=== PATIENT | male | born 1970 | race Caucasian/White ===

== ENCOUNTER 2020-11-30 23:46 | Inpatient (IN) ==
[2020-12-01] MEDS ORDERED: SODIUM CHLORIDE 0.9% 1000ML 1,000 ML IV SCH ×2 (00:15→05:32)
[2020-12-01] MEDS ORDERED: SODIUM CHLORIDE 0.9% 1000ML 1,000 ML IV ONE (00:31)
[2020-12-01 00:46] LABS: Basophils # (auto) 0.04 K/uL (0-0.2); Basophils % (auto) 0.4 %; Eosinophils # (auto) 0.11 K/uL (0-0.5); Hematocrit (blood only) 39.5 % (42-52); Hemoglobin 13.3 g/dL (14.0-18.0); Immature Granulocytes # (auto) 0.02 K/uL (0.00-0.02); Immature Granulocytes % (auto) 0.2 %; Lymphocytes # (auto) 3.16 K/uL (1.2-3.4); Lymphocytes % (auto) 28.9 %; Mean Corpuscular Hemoglobin 28.7 pg (25-34); Mean Corpuscular Hgb Conc 33.7 g/dL (32-36); Mean Corpuscular Volume 85.1 fL (80-100); Mean Platelet Volume 10.2 fL (7.4-10.4); Monocytes # (auto) 0.55 K/uL (0.11-0.59); Neutrophils # (auto) 7.04 K/uL (1.4-6.5); Neutrophils % (auto) 64.5 %; Platelet Count 274 K/uL (130-400); RDW Coefficient of Variation 13.7 % (11.5-14.5); RDW Standard Deviation 42.6 fL (36.4-46.3); Red Blood Count 4.64 M/uL (4.7-6.1); White Blood Count 10.92 K/uL (4.8-10.8)
[2020-12-01 01:03] LABS: Alanine Aminotransferase 25 U/L (12-78); Albumin Level 3.4 gm/dl (3.4-5.0); Aspartate Aminotransferase 21 U/L (15-37); BUN Creatinine Ratio 16.7 (10-20); Blood Urea Nitrogen 21 mg/dl (7-18); Calcium 8.4 mg/dl (8.5-10.1); Carbon Dioxide 25 mmol/L (21-32); Chloride 103 mmol/L (98-107); D Dimer 4110 ug/L FEU (0-500); Est GFR (African American) 76.4 ml/min; Est GFR (Non-African American) 65.9 ml/min; Glucose 111 mg/dl (70-99); Magnesium 2.1 mg/dl (1.8-2.4); Potassium 3.5 mmol/L (3.5-5.1); Sodium 135 mmol/L (136-145)
[2020-12-01 01:13] LABS: Albumin Globulin Ratio 0.9 (0.9-2); Alkaline Phosphatase 61 U/L (45-117); Bilirubin,Total 0.3 mg/dl (0.2-1); Globulin 3.7 gm/dl (2.5-4.0); Total Protein 7.1 gm/dl (6.4-8.2); Troponin I 0.032 ng/ml (0-0.045)
[2020-12-01 01:43] LABS: INR 1.1 (0.9-1.1); Partial Thromboplastin Ratio 0.8; Partial Thromboplastin Time 22.1 Seconds (21.0-31.0); Prothrombin Time 10.8 Seconds (9.0-12.0)
[2020-12-01] MEDS ORDERED: OPTIRAY 320 125ml IV ONE (01:55)
[2020-12-01 03:31] LABS: Appearance Urine Clear (Clear); Bacteria Urine Automated Negative (Negative); Bilirubin Urine Negative (Negative); Blood Urine Negative (Negative); Color Urine Yellow; Glucose Urine UA Negative (Negative); Ketones Urine Negative (Negative); Leukocyte Esterase Urine Negative (Negative); Nitrite Urine Negative (Negative); Protein Urine Trace (Negative); RBC Urine Automated 0-4 /hpf (0-4); Specific Gravity Urine 1.036 (1.000-1.030); Urobilinogen Urine Negative (Negative)
[2020-12-01] MEDS ORDERED: methylPREDNISolone 125 MG/2 ML VIAL IV STA (03:38)
[2020-12-01] MEDS ORDERED: ALBUT/IPRATROP 3MG/0.5MG NEB 3 ML VIAL NEB STA (03:38)
[2020-12-01 04:09] LABS: C Reactive Protein < 0.29 mg/dl (0-0.29)
[2020-12-01] MEDS ORDERED: ACETAMINOPHEN 325 MG TAB PO PRN (05:32)
[2020-12-01] MEDS ORDERED: NITROGLYCERIN SL 0.4 MG/TAB TAB SL PRN (05:32)
[2020-12-01] MEDS ORDERED: PATIENT'S HEIGHT AND/OR WEIGHT NEEDED SCH (05:45)
[2020-12-01 05:46] LABS: Adenovirus PCR Not Detected (NotDetected); Bordetella parapertussis PCR Not Detected (NotDetected); Bordetella pertussis PCR Not Detected (NotDetected); Chlamydia pneumoniae PCR Not Detected (NotDetected); Coronavirus 229E PCR Not Detected (NotDetected); Coronavirus CoV-2 (COVID19)PCR Not Detected (NotDetected); Coronavirus HKU1 PCR Not Detected (NotDetected); Coronavirus NL63 PCR Not Detected (NotDetected); Coronavirus OC43PCR Not Detected (NotDetected); Human Metapneumovirus PCR Not Detected (NotDetected); Influenza A PCR Not Detected (NotDetected); Influenza B PCR Not Detected (NotDetected); Mycoplasma pneumoniae PCR Not Detected (NotDetected); Parainfluenza Virus 1 PCR Not Detected (NotDetected); Parainfluenza Virus 2 PCR Not Detected (NotDetected); Parainfluenza Virus 3 PCR Not Detected (NotDetected); Parainfluenza Virus 4 PCR Not Detected (NotDetected); Respiratory Syncytial VirusPCR Not Detected (NotDetected); Rhinovirus/Enterovirus PCR Not Detected (NotDetected)
--- NOTE | 2020-12-01 06:45 | History and Physical Report ---
DATE OF ADMISSION: 11/30/2020. CHIEF COMPLAINT: Syncope. HISTORY OF PRESENT ILLNESS: This is a 50-year-old male with no significant past medical history presents with syncope The patient says since last couple of days, whenever he is trying to walk, he is getting short of breath. Tonight he went for a constitution party and had a couple of drinks, was doing okay and then came home and trying to go to bed, he was not feeling good and feeling short of breath with sweating. He tried to climb the steps. [place] to the steps, felt very short of breath, somehow managed to climb up the steps and then he passed out. His saw his eyes were rolling out and he became very pale. No seizure activity, no biting of the tongue, no incontinence during the episode and the next thing he remembered was when the EMS came and there was no confusion once he woke up. He noticed some petechial rash on his face, but no rash anywhere else. The patient denies any food allergy as he just ate regular stuff. Denies any fevers, also had some mild cough, no chest pain, no headache, no blurred visions, no earache, no runny nose, no sore throat. No nausea, no abdominal pain, normal bowel and bladder movements. No blood in stools or black stools. No swelling in the legs. ALLERGIES: No known drug allergies. PAST MEDICAL HISTORY: As mentioned above. PAST SURGICAL HISTORY: Colonoscopy, hand surgery. MEDICATIONS: None. FAMILY HISTORY: Mother has hypertension, breast cancer, thyroid disorder, maternal grandfather had prostate cancer, paternal grandfather had prostate and colon cancer; maternal grandmother had breast cancer. SOCIAL HISTORY: . No smoking. Alcohol occasional. No drug use. REVIEW OF SYSTEMS: As per HPI. Rest of review of systems is negative. PHYSICAL EXAMINATION: GENERAL: The patient is of moderate build, not in acute distress. VITAL SIGNS: Temperature 36.6, pulse 107, respiratory rate 19, blood pressure 150/80, oxygen 96% on room air. HEENT: Pupils equal, round and reactive to light. Oral mucosa moist. NECK: No JVD. No neck masses seen. CARDIOVASCULAR: S1 and S2 heard. Regular rate and rhythm. No murmur, no gallop. RESPIRATORY: Normal AP diameter. No accessory muscle use. No wheezing, no crackles. ABDOMEN: Soft, bowel sounds present, nontender, no distention. CENTRAL NERVOUS SYSTEM: Cranial nerves II-XII grossly intact, nonfocal. EXTREMITIES: No edema, no erythema. SKIN: Petechial rash on the face seen. LABORATORY DATA: WBC 10.9, hemoglobin 13.3, hematocrit 39.5, platelets 274. ESR 58. PT 10.8, INR 1.1, APTT 22.1. D-dimer 4100. Sodium 135, potassium 3.5, chloride 103, bicarbonate 25, BUN 21, creatinine 1.2, serum glucose 111, calcium 8.4, magnesium 2.1, total bilirubin 0.3, AST 21, ALT 25, alkaline phosphatase 61. LDH 235. Troponin I 0.03. C-reactive protein less than 0.29. TSH 3.7. Urinalysis negative. Ethyl alcohol less than 3. COVID negative. CT of the head, no acute findings. CT of the chest, There is no pulmonary embolism. Possible pulmonary venous hypertension. Chest x-ray, no acute findings. . ASSESSMENT AND PLAN: This is a 50-year-old male, presents with syncope and shortness of breath. 1. Syncope, shortness of breath: Etiology not clear. We will monitor in tele floor. Repeat EKG, echocardiogram, repeat cardiac enzymes and consult cardiology. 2. Shortness of breath ongoing for the last couple of days: No fevers. Has mild cough, not vaccinated for COVID. Initial COVID test is negative, we will recheck it with [employer]. CTA chest, no PE to follow final report. . Also doing lower extremity Doppler, we will follow the results. Currently saturating okay. 3. Deep venous thrombosis prophylaxis: Lovenox. DISPOSITION: Closely monitor in the med tele. PT, OT prior to discharge. Social service to help with discharge planning. Job ID: [id number] [facility]
[2020-12-01 07:46] LABS: Hematocrit (blood only) 42.1 % (42-52); Hemoglobin 14.4 g/dL (14.0-18.0); Immature Granulocytes # (auto) 0.02 K/uL (0.00-0.02); Immature Granulocytes % (auto) 0.2 %; Lymphocytes # (auto) 0.55 K/uL (1.2-3.4); Lymphocytes % (auto) 4.4 %; Mean Corpuscular Hemoglobin 29.1 pg (25-34); Mean Corpuscular Hgb Conc 34.2 g/dL (32-36); Mean Corpuscular Volume 85.2 fL (80-100); Mean Platelet Volume 10.4 fL (7.4-10.4); Monocytes # (auto) 0.02 K/uL (0.11-0.59); Monocytes % (auto) 0.2 %; Neutrophils # (auto) 11.99 K/uL (1.4-6.5); Neutrophils % (auto) 95.2 %; Platelet Count 261 K/uL (130-400); RDW Coefficient of Variation 13.8 % (11.5-14.5); RDW Standard Deviation 42.7 fL (36.4-46.3); Red Blood Count 4.94 M/uL (4.7-6.1); White Blood Count 12.58 K/uL (4.8-10.8)
[2020-12-01 08:11] LABS: BUN Creatinine Ratio 18.8 (10-20); Calcium 9.1 mg/dl (8.5-10.1); Creatinine Clr Calc Pharmacy 108.9 ml/min; Est GFR (Non-African American) 75.9 ml/min; Magnesium 2.2 mg/dl (1.8-2.4); Potassium 4.3 mmol/L (3.5-5.1)
--- NOTE | 2020-12-01 08:41 | Ultrasound Report ---
BILATERAL LOWER EXTREMITY VENOUS DOPPLER CLINICAL HISTORY: Syncope. Evaluate for deep venous thrombus. COMPARISON STUDY: No previous studies for comparison. TECHNIQUE: Sonography of the deep venous system of the bilateral lower extremities was performed. Co mpression and augmentation were evaluated. FINDINGS: The bilateral common femoral, superficial femoral and popliteal veins were compressible. A ugmentation was normal. Flow was shown within the deep calf vessels. IMPRESSION: No evidence of deep venous thrombus within the bilateral lower extremities. ACT 112: Negative or not required by law. Electronically signed by: Kushal Archuleta M.D. 12/01/2020 8:39 AM
--- NOTE | 2020-12-01 08:42 | CT Scan Report ---
HEAD CT NONCONTRAST CT DOSE: 2133.67 mGy.cm HISTORY: petechiae rash face, syncope TECHNIQUE: Multiaxial CT images of the head were performed without the use of intravenous contrast. A utomated exposure control was utilized for this study. A dose lowering technique was utilized adheri ng to the principles of ALARA. Comparison: None. Findings: The paranasal sinuses and mastoid air cells are clear. The calvarium and skull base are int act. The ventricles and sulci are within normal limits. There is no mass, hematoma, midline shift, or acute infarct. Impression: No acute intracranial abnormality. ACT 112: Negative or not required by law. Electronically signed by: Greg Bob M.D. 12/01/2020 8:41 AM
--- NOTE | 2020-12-01 08:54 | XRay Report ---
XR chest 1V portable CLINICAL HISTORY: syncope COMPARISON STUDY: No previous studies for comparison. FINDINGS: Lung volumes are normal. No pneumothorax or pleural effusion is identified. Interlobular se ptal thickening is present. Mild cardiomegaly is noted. IMPRESSION: Mild cardiomegaly with interstitial pulmonary edema. ACT 112: Negative or not required by law. Electronically signed by: Kushal Archuleta M.D. 12/01/2020 8:52 AM
--- NOTE | 2020-12-01 09:10 | CT Scan Report ---
CT ANGIOGRAPHY OF THE CHEST, PULMONARY EMBOLUS PROTOCOL CLINICAL HISTORY: Cough. Evaluate for pulmonary embolus. COMPARISON STUDY: Chest radiograph December 01, 2020. TECHNIQUE: Following IV administration of 118 mL of Optiray, helical axial images of the chest were o btained utilizing the pulmonary embolus protocol. Maximal intensity projections and sagittal and cor onal reformats were viewed on an independent 3D workstation. IV contrast was administered without co mplication. Automated exposure control was utilized for the study. A dose lowering technique was ut ilized adhering to the principles of ALARA. FINDINGS: No pulmonary emboli are identified. There is no thoracic aortic dissection. Mild cardiomeg rickie is noted. There is possible left ventricular hypertrophy. There is no pericardial effusion. There are trace bilateral pleural effusions. Interlobular septal thickening is noted. There are groundglas s opacities which likely reflect alveolar edema. Bronchial wall thickening is present. There is no pn eumothorax. Visual portions of the upper abdomen are unremarkable. IMPRESSION: 1. No pulmonary emboli identified. 2. Interstitial and alveolar pulmonary edema with trace bilateral pleural effusions. Mild cardiomegal y and possible left ventricular hypertrophy. Cardiology consultation is recommended. ACT 112: Negative or not required by law. Electronically signed by: Kushal Archuleta M.D. 12/01/2020 9:08 AM
[2020-12-01 09:43] LABS: Procalcitonin < 0.05 ng/ml (0-0.5)
[2020-12-01 09:49] LABS: Lyme Ab IgG w/WB Rflx Negative (Negative); Lyme Ab IgM w/WB Rflx Negative (Negative)
[2020-12-01] MEDS: ENOXAPARIN INJ 40 MG/0.4 ML SYR SQ SCH (10:13)
[2020-12-01] MEDS ORDERED: FUROSEMIDE 40 MG in SYRINGE 0 ML IV ONE (11:49)
[2020-12-01 11:59] LABS: Amphetamines+Metham, Urine Neg (Neg); Barbiturates, Urine Neg (Neg); Benzodiazepine, Urine Neg (Neg); Cocaine, Urine Neg (Neg); MDMA (Ecstacy), Urine Neg (Neg); Methadone, Urine Neg (Neg); Opiate, Urine Neg (Neg); Phencyclidine, Urine Neg (Neg)
[2020-12-01] MEDS ORDERED: FUROSEMIDE 40 MG/4 ML VIAL IV ONE (12:15)
[2020-12-01 12:47] LABS: Troponin I 0.071 ng/ml (0-0.045)
[2020-12-01 12:47] LABS: Troponin I 0.057 ng/ml (0-0.045)
--- NOTE | 2020-12-01 14:30 | Cardiology Consultation ---
Date of Consultation December 01, 2020 Assessment & Plan (1) Hypertrophic cardiomyopathy: (2) Syncope and collapse: Based on the imaging studies, I believe the patient may have had a sudden episode due to cardiac arrhythmia from a hypertrophic cardiomyopathy. The patient needs to be worked up further. Ischemic cardiomyopathy has to be excluded and therefore I have recommended a cardiac catheterization to him. I explained the risk, benefit and intent of the procedure to him and he is willing to proceed. If the cardiac catheterization is unremarkable then he needs to be worked up further for hypertrophic cardiomyopathy including an EP evaluation for possible ICD. Consideration should also be given for genetic testing which can be done as an outpatient. I have started the patient on a beta-armin. He will also be started on aspirin. At present I believe subcu Lovenox which you have given is adequate and the patient needs no additional anticoagulation. History of Present Illness Attending Physician: Serafin Kolb MD History of Present Illness This is a healthy 50-year-old male patient with no prior history of heart disease. He was in his usual state of good health and went out to dinner with his last evening. After returning home he went up stairs to the second floor and when he reached the top of the steps he felt winded and sat down. His who was in the bathroom heard a snoring kind of noise and when she came out she saw him at the top of the stairs sitting and he laid back. She describes him as appearing cyanotic, unresponsive and making snoring kind of noises. After several minutes he regained his color and eventually regained consciousness. 911 was called and [facility] After [facility] his EKG shows evidence of left ventricular hypertrophy with strain versus ischemia. Echocardiogram suggest a hypertrophic cardiomyopathy mostly in the apical area. CT of the chest was negative for pulmonary emboli but there is a suggestion on the CT of left ventricular hypertrophy. He had negative venous Dopplers of the lower extremities. Cardiac troponins are borderline elevated. His pro natruretic peptide is 3100. There is no family history of sudden . No history of hypertrophic cardiomyopathy in his family. He is a non-smoker with no previous history of diabetes or hypercholesterolemia. 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 All other 10 point review of systems are negative. Physical Exam Physical Exam: General: no acute distress and stated age Head: normocephalic, no masses, lesions, tenderness or abnormalities Eyes: conjunctiva are pink and non-injected, sclera clear Neck: supple, no adenopathy, no bruits, normal jugular venous pulse, no hepatojugular reflux Chest: normal shape and normal respiratory effort Lungs: clear to auscultation and percussion Cardiac Exam: - regular rate & rhythm, no murmurs gallops or rubs - normal S1, normal S2 Pulses: 2(+) throughout Abdomen: abdomen soft, non-tender, no abnormal masses and no hepatosplenomegaly Musculoskeletal: no gait disturbance, no joint inflammation, no deforming arthritis Extremities: no edema and no cyanosis Neuro: grossly normal exam Results & Data ([facility]) Vital Signs (Past 12 Hours) Vital Signs Temp Pulse Pulse Resp BP BP Pulse Ox 12/01/20 12:00 99 H 22 142/83 H 94 12/01/20 10:56 99 H 22 142/83 H 94 12/01/20 08:30 37 C 102 H 18 141/77 H 95 12/01/20 06:00 36.8 C 107 H 21 136/80 97 12/01/20 04:20 107 H 19 150/80 H 96 12/01/20 04:01 106 H 20 96 12/01/20 04:00 108 H 17 129/80 99 12/01/20 03:30 104 H 26 H 122/73 92 Laboratory Results Laboratory Results - last 24 hr 12/01/20 12/01/20 12/01/20 00:35 00:35 00:36 WBC 10.92 H RBC 4.64 L Hgb 13.3 L Hct 39.5 L MCV 85.1 MCH 28.7 MCHC 33.7 RDW Std Deviation 42.6 RDW Coeff of Cathryn 13.7 Plt Count 274 MPV 10.2 Immature Gran % (Auto) 0.2 Neut % (Auto) 64.5 Lymph % (Auto) 28.9 [place] % (Auto) 5.0 Eos % (Auto) 1.0 Baso % (Auto) 0.4 Neut # (Auto) 7.04 H Lymph # (Auto) 3.16 [place] # (Auto) 0.55 Eos # (Auto) 0.11 Baso # (Auto) 0.04 Immature Gran # (Auto) 0.02 ESR PT INR APTT PTT Ratio D-Dimer Sodium Potassium Chloride Carbon Dioxide Anion Gap BUN Creatinine Est Cr Clr Drug Dosing Est GFR ( Amer) Est GFR (Non-Af Amer) BUN/Creatinine Ratio Glucose Calcium Magnesium Total Bilirubin AST ALT Alkaline Phosphatase Lactate Dehydrogenase Troponin I C-Reactive Protein NT-Pro-B Natriuret Pep Total Protein Albumin Globulin Albumin/Globulin Ratio Procalcitonin TSH Urine Color Urine Appearance Urine pH Ur Specific Dennis Urine Protein Urine Glucose (UA) Urine Ketones Urine Blood Urine Nitrite Urine Bilirubin Urine Urobilinogen Ur Leukocyte Esterase Urine WBC (Auto) Urine RBC (Auto) U Hyaline Cast (Auto) U Epithel Cells (Auto) Urine Bacteria (Auto) Urine Opiates Screen Ur Methadone, Qual Urine Barbiturates Ur Phencyclidine (PCP) U Amphetamin/Meth Scrn MDMA (Ecstasy) Screen U Benzodiazepines Scrn Ur Cocaine Metabolite U Marijuana (THC) Screen Ethyl Alcohol mg/dL Adenovirus (PCR) Anaplasma Smear A. phagocytophilum DNA Babesia Smear Babesia microti DNA PCR B. pertussis DNA (PCR) B.parapertussis DNA PCR Lyme Disease IgG Ab Lyme Disease IgM Ab C. pneumoniae DNA (PCR) Coronavirus OC43 (PCR) Coronavirus HKU1 (PCR) Coronavirus 229E (PCR) COVID-19 Eval Order Covid19 at [facility] SARS-CoV-2 (PCR) NEGATIVE Coronavirus NL63 (PCR) Human Metapneumovir PCR Influenza Type A (PCR) Influenza Type B (PCR) M. pneumoniae (PCR) Parainfluenza 1 (PCR) Parainfluenza 2 (PCR) Parainfluenza 3 (PCR) Parainfluenza 4 (PCR) RSV (PCR) Entero/Rhino (PCR) 12/01/20 12/01/20 12/01/20 00:36 00:36 00:36 WBC RBC Hgb Hct MCV MCH MCHC RDW Std Deviation RDW Coeff of Cathryn Plt Count MPV Immature Gran % (Auto) Neut % (Auto) Lymph % (Auto) [place] % (Auto) Eos % (Auto) Baso % (Auto) Neut # (Auto) Lymph # (Auto) [place] # (Auto) Eos # (Auto) Baso # (Auto) Immature Gran # (Auto) ESR 58 H PT 10.8 INR 1.1 APTT 22.1 PTT Ratio 0.8 D-Dimer 4110 H* Sodium 135 L Potassium 3.5 Chloride 103 Carbon Dioxide 25 Anion Gap 7.0 BUN 21 H Creatinine 1.27 Est Cr Clr Drug Dosing Not Reportable Est GFR ( Amer) 76.4 Est GFR (Non-Af Amer) 65.9 BUN/Creatinine Ratio 16.7 Glucose 111 H Calcium 8.4 L Magnesium 2.1 Total Bilirubin 0.3 AST 21 ALT 25 Alkaline Phosphatase 61 Lactate Dehydrogenase Troponin I 0.032 C-Reactive Protein < 0.29 NT-Pro-B Natriuret Pep Total Protein 7.1 Albumin 3.4 Globulin 3.7 Albumin/Globulin Ratio 0.9 Procalcitonin TSH 3.170 Urine Color Urine Appearance Urine pH Ur Specific Dennis Urine Protein Urine Glucose (UA) Urine Ketones Urine Blood Urine Nitrite Urine Bilirubin Urine Urobilinogen Ur Leukocyte Esterase Urine WBC (Auto) Urine RBC (Auto) U Hyaline Cast (Auto) U Epithel Cells (Auto) Urine Bacteria (Auto) Urine Opiates Screen Ur Methadone, Qual Urine Barbiturates Ur Phencyclidine (PCP) U Amphetamin/Meth Scrn MDMA (Ecstasy) Screen U Benzodiazepines Scrn Ur Cocaine Metabolite U Marijuana (THC) Screen Ethyl Alcohol mg/dL Adenovirus (PCR) Anaplasma Smear A. phagocytophilum DNA Babesia Smear Babesia microti DNA PCR B. pertussis DNA (PCR) B.parapertussis DNA PCR Lyme Disease IgG Ab Lyme Disease IgM Ab C. pneumoniae DNA (PCR) Coronavirus OC43 (PCR) Coronavirus HKU1 (PCR) Coronavirus 229E (PCR) COVID-19 Eval Order SARS-CoV-2 (PCR) Coronavirus NL63 (PCR) Human Metapneumovir PCR Influenza Type A (PCR) Influenza Type B (PCR) M. pneumoniae (PCR) Parainfluenza 1 (PCR) Parainfluenza 2 (PCR) Parainfluenza 3 (PCR) Parainfluenza 4 (PCR) RSV (PCR) Entero/Rhino (PCR) 12/01/20 12/01/20 12/01/20 00:36 00:36 00:36 WBC RBC Hgb Hct MCV MCH MCHC RDW Std Deviation RDW Coeff of Cathryn Plt Count MPV Immature Gran % (Auto) Neut % (Auto) Lymph % (Auto) [place] % (Auto) Eos % (Auto) Baso % (Auto) Neut # (Auto) Lymph # (Auto) [place] # (Auto) Eos # (Auto) Baso # (Auto) Immature Gran # (Auto) ESR PT INR APTT PTT Ratio D-Dimer Sodium Potassium Chloride Carbon Dioxide Anion Gap BUN Creatinine Est Cr Clr Drug Dosing Est GFR ( Amer) Est GFR (Non-Af Amer) BUN/Creatinine Ratio Glucose Calcium Magnesium Total Bilirubin AST ALT Alkaline Phosphatase Lactate Dehydrogenase 235 Troponin I C-Reactive Protein NT-Pro-B Natriuret Pep Total Protein Albumin Globulin Albumin/Globulin Ratio Procalcitonin TSH Urine Color Urine Appearance Urine pH Ur Specific Dennis Urine Protein Urine Glucose (UA) Urine Ketones Urine Blood Urine Nitrite Urine Bilirubin Urine Urobilinogen Ur Leukocyte Esterase Urine WBC (Auto) Urine RBC (Auto) U Hyaline Cast (Auto) U Epithel Cells (Auto) Urine Bacteria (Auto) Urine Opiates Screen Ur Methadone, Qual Urine Barbiturates Ur Phencyclidine (PCP) U Amphetamin/Meth Scrn MDMA (Ecstasy) Screen U Benzodiazepines Scrn Ur Cocaine Metabolite U Marijuana (THC) Screen Ethyl Alcohol mg/dL Adenovirus (PCR) Anaplasma Smear See Comment A. phagocytophilum DNA Babesia Smear See Comment Babesia microti DNA PCR Pending B. pertussis DNA (PCR) B.parapertussis DNA PCR Lyme Disease IgG Ab Lyme Disease IgM Ab C. pneumoniae DNA (PCR) Coronavirus OC43 (PCR) Coronavirus HKU1 (PCR) Coronavirus 229E (PCR) COVID-19 Eval Order SARS-CoV-2 (PCR) Coronavirus NL63 (PCR) Human Metapneumovir PCR Influenza Type A (PCR) Influenza Type B (PCR) M. pneumoniae (PCR) Parainfluenza 1 (PCR) Parainfluenza 2 (PCR) Parainfluenza 3 (PCR) Parainfluenza 4 (PCR) RSV (PCR) Entero/Rhino (PCR) 12/01/20 12/01/20 12/01/20 00:36 01:11 03:15 WBC RBC Hgb Hct MCV MCH MCHC RDW Std Deviation RDW Coeff of Cathryn Plt Count MPV Immature Gran % (Auto) Neut % (Auto) Lymph % (Auto) [place] % (Auto) Eos % (Auto) Baso % (Auto) Neut # (Auto) Lymph # (Auto) [place] # (Auto) Eos # (Auto) Baso # (Auto) Immature Gran # (Auto) ESR PT INR APTT PTT Ratio D-Dimer Sodium Potassium Chloride Carbon Dioxide Anion Gap BUN Creatinine Est Cr Clr Drug Dosing Est GFR ( Amer) Est GFR (Non-Af Amer) BUN/Creatinine Ratio Glucose Calcium Magnesium Total Bilirubin AST ALT Alkaline Phosphatase Lactate Dehydrogenase Troponin I C-Reactive Protein NT-Pro-B Natriuret Pep Total Protein Albumin Globulin Albumin/Globulin Ratio Procalcitonin TSH Urine Color Yellow Urine Appearance Clear Urine pH 5.0 Ur Specific Dennis 1.036 H Urine Protein Trace H Urine Glucose (UA) Negative Urine Ketones Negative Urine Blood Negative Urine Nitrite Negative Urine Bilirubin Negative Urine Urobilinogen Negative Ur Leukocyte Esterase Negative Urine WBC (Auto) 1-5 Urine RBC (Auto) 0-4 U Hyaline Cast (Auto) 1-5 U Epithel Cells (Auto) 5-10 H Urine Bacteria (Auto) Negative Urine Opiates Screen Ur Methadone, Qual Urine Barbiturates Ur Phencyclidine (PCP) U Amphetamin/Meth Scrn MDMA (Ecstasy) Screen U Benzodiazepines Scrn Ur Cocaine Metabolite U Marijuana (THC) Screen Ethyl Alcohol mg/dL < 3.0 Adenovirus (PCR) Anaplasma Smear A. phagocytophilum DNA Pending Babesia Smear Babesia microti DNA PCR B. pertussis DNA (PCR) B.parapertussis DNA PCR Lyme Disease IgG Ab Lyme Disease IgM Ab C. pneumoniae DNA (PCR) Coronavirus OC43 (PCR) Coronavirus HKU1 (PCR) Coronavirus 229E (PCR) COVID-19 Eval Order SARS-CoV-2 (PCR) Coronavirus NL63 (PCR) Human Metapneumovir PCR Influenza Type A (PCR) Influenza Type B (PCR) M. pneumoniae (PCR) Parainfluenza 1 (PCR) Parainfluenza 2 (PCR) Parainfluenza 3 (PCR) Parainfluenza 4 (PCR) RSV (PCR) Entero/Rhino (PCR) 12/01/20 12/01/20 12/01/20 04:32 04:32 07:23 WBC 12.58 H RBC 4.94 Hgb 14.4 Hct 42.1 MCV 85.2 MCH 29.1 MCHC 34.2 RDW Std Deviation 42.7 RDW Coeff of Cathryn 13.8 Plt Count 261 MPV 10.4 Immature Gran % (Auto) 0.2 Neut % (Auto) 95.2 Lymph % (Auto) 4.4 [place] % (Auto) 0.2 Eos % (Auto) 0.0 Baso % (Auto) 0.0 Neut # (Auto) 11.99 H Lymph # (Auto) 0.55 L [place] # (Auto) 0.02 L Eos # (Auto) 0.00 Baso # (Auto) 0.00 Immature Gran # (Auto) 0.02 ESR PT INR APTT PTT Ratio D-Dimer Sodium Potassium Chloride Carbon Dioxide Anion Gap BUN Creatinine Est Cr Clr Drug Dosing Est GFR ( Amer) Est GFR (Non-Af Amer) BUN/Creatinine Ratio Glucose Calcium Magnesium Total Bilirubin AST ALT Alkaline Phosphatase Lactate Dehydrogenase Troponin I C-Reactive Protein NT-Pro-B Natriuret Pep Total Protein Albumin Globulin Albumin/Globulin Ratio Procalcitonin TSH Urine Color Urine Appearance Urine pH Ur Specific Dennis Urine Protein Urine Glucose (UA) Urine Ketones Urine Blood Urine Nitrite Urine Bilirubin Urine Urobilinogen Ur Leukocyte Esterase Urine WBC (Auto) Urine RBC (Auto) U Hyaline Cast (Auto) U Epithel Cells (Auto) Urine Bacteria (Auto) Urine Opiates Screen Ur Methadone, Qual Urine Barbiturates Ur Phencyclidine (PCP) U Amphetamin/Meth Scrn MDMA (Ecstasy) Screen U Benzodiazepines Scrn Ur Cocaine Metabolite U Marijuana (THC) Screen Ethyl Alcohol mg/dL Adenovirus (PCR) Not Detected Anaplasma Smear A. phagocytophilum DNA Babesia Smear Babesia microti DNA PCR B. pertussis DNA (PCR) Not Detected B.parapertussis DNA PCR Not Detected Lyme Disease IgG Ab Lyme Disease IgM Ab C. pneumoniae DNA (PCR) Not Detected Coronavirus OC43 (PCR) Not Detected Coronavirus HKU1 (PCR) Not Detected Coronavirus 229E (PCR) Not Detected COVID-19 Eval Order RESPNP at [facility] SARS-CoV-2 (PCR) Not Detected Coronavirus NL63 (PCR) Not Detected Human Metapneumovir PCR Not Detected Influenza Type A (PCR) Not Detected Influenza Type B (PCR) Not Detected M. pneumoniae (PCR) Not Detected Parainfluenza 1 (PCR) Not Detected Parainfluenza 2 (PCR) Not Detected Parainfluenza 3 (PCR) Not Detected Parainfluenza 4 (PCR) Not Detected RSV (PCR) Not Detected Entero/Rhino (PCR) Not Detected 12/01/20 12/01/20 12/01/20 07:23 08:56 11:40 WBC RBC Hgb Hct MCV MCH MCHC RDW Std Deviation RDW Coeff of Cathryn Plt Count MPV Immature Gran % (Auto) Neut % (Auto) Lymph % (Auto) [place] % (Auto) Eos % (Auto) Baso % (Auto) Neut # (Auto) Lymph # (Auto) [place] # (Auto) Eos # (Auto) Baso # (Auto) Immature Gran # (Auto) ESR PT INR APTT PTT Ratio D-Dimer Sodium 135 L Potassium 4.3 D Chloride 107 Carbon Dioxide 21 Anion Gap 8.0 BUN 21 H Creatinine 1.13 Est Cr Clr Drug Dosing 108.9 Est GFR ( Amer) 88.0 Est GFR (Non-Af Amer) 75.9 BUN/Creatinine Ratio 18.8 Glucose 139 H Calcium 9.1 Magnesium 2.2 Total Bilirubin AST ALT Alkaline Phosphatase Lactate Dehydrogenase Troponin I 0.071 H* 0.057 H* C-Reactive Protein NT-Pro-B Natriuret Pep 3153 H Total Protein Albumin Globulin Albumin/Globulin Ratio Procalcitonin < 0.05 TSH Urine Color Urine Appearance Urine pH Ur Specific Dennis Urine Protein Urine Glucose (UA) Urine Ketones Urine Blood Urine Nitrite Urine Bilirubin Urine Urobilinogen Ur Leukocyte Esterase Urine WBC (Auto) Urine RBC (Auto) U Hyaline Cast (Auto) U Epithel Cells (Auto) Urine Bacteria (Auto) Urine Opiates Screen Ur Methadone, Qual Urine Barbiturates Ur Phencyclidine (PCP) U Amphetamin/Meth Scrn MDMA (Ecstasy) Screen U Benzodiazepines Scrn Ur Cocaine Metabolite U Marijuana (THC) Screen Ethyl Alcohol mg/dL Adenovirus (PCR) Anaplasma Smear A. phagocytophilum DNA Babesia Smear Babesia microti DNA PCR B. pertussis DNA (PCR) B.parapertussis DNA PCR Lyme Disease IgG Ab Negative Lyme Disease IgM Ab Negative C. pneumoniae DNA (PCR) Coronavirus OC43 (PCR) Coronavirus HKU1 (PCR) Coronavirus 229E (PCR) COVID-19 Eval Order SARS-CoV-2 (PCR) Coronavirus NL63 (PCR) Human Metapneumovir PCR Influenza Type A (PCR) Influenza Type B (PCR) M. pneumoniae (PCR) Parainfluenza 1 (PCR) Parainfluenza 2 (PCR) Parainfluenza 3 (PCR) Parainfluenza 4 (PCR) RSV (PCR) Entero/Rhino (PCR) 12/01/20 Unknown WBC RBC Hgb Hct MCV MCH MCHC RDW Std Deviation RDW Coeff of Cathryn Plt Count MPV Immature Gran % (Auto) Neut % (Auto) Lymph % (Auto) [place] % (Auto) Eos % (Auto) Baso % (Auto) Neut # (Auto) Lymph # (Auto) [place] # (Auto) Eos # (Auto) Baso # (Auto) Immature Gran # (Auto) ESR PT INR APTT PTT Ratio D-Dimer Sodium Potassium Chloride Carbon Dioxide Anion Gap BUN Creatinine Est Cr Clr Drug Dosing Est GFR ( Amer) Est GFR (Non-Af Amer) BUN/Creatinine Ratio Glucose Calcium Magnesium Total Bilirubin AST ALT Alkaline Phosphatase Lactate Dehydrogenase Troponin I C-Reactive Protein NT-Pro-B Natriuret Pep Total Protein Albumin Globulin Albumin/Globulin Ratio Procalcitonin TSH Urine Color Urine Appearance Urine pH Ur Specific Dennis Urine Protein Urine Glucose (UA) Urine Ketones Urine Blood Urine Nitrite Urine Bilirubin Urine Urobilinogen Ur Leukocyte Esterase Urine WBC (Auto) Urine RBC (Auto) U Hyaline Cast (Auto) U Epithel Cells (Auto) Urine Bacteria (Auto) Urine Opiates Screen Neg Ur Methadone, Qual Neg Urine Barbiturates Neg Ur Phencyclidine (PCP) Neg U Amphetamin/Meth Scrn Neg MDMA (Ecstasy) Screen Neg U Benzodiazepines Scrn Neg Ur Cocaine Metabolite Neg U Marijuana (THC) Screen Neg Ethyl Alcohol mg/dL Adenovirus (PCR) Anaplasma Smear A. phagocytophilum DNA Babesia Smear Babesia microti DNA PCR B. pertussis DNA (PCR) B.parapertussis DNA PCR Lyme Disease IgG Ab Lyme Disease IgM Ab C. pneumoniae DNA (PCR) Coronavirus OC43 (PCR) Coronavirus HKU1 (PCR) Coronavirus 229E (PCR) COVID-19 Eval Order SARS-CoV-2 (PCR) Coronavirus NL63 (PCR) Human Metapneumovir PCR Influenza Type A (PCR) Influenza Type B (PCR) M. pneumoniae (PCR) Parainfluenza 1 (PCR) Parainfluenza 2 (PCR) Parainfluenza 3 (PCR) Parainfluenza 4 (PCR) RSV (PCR) Entero/Rhino (PCR) Medications Administered Current Inpatient Medications Acetaminophen (Acetaminophen 325 Mg Tab) 650 mg PO Q4H PRN PRN Reason: Pain or Fever Stop: 12/31/20 05:31 Aspirin (Aspirin 81 Mg Chew) 81 mg PO DAILY MADAN Stop: 12/31/20 14:29 Enoxaparin Sodium (Enoxaparin Inj 40 Mg/0.4 Ml Syr) 40 mg SQ Q24H MADAN Stop: 12/31/20 08:59 Last Admin: 12/01/20 10:13 Dose: Not Given Documented by: Metoprolol Tartrate (Metoprolol Tartrate 25 Mg Tab) 12.5 mg PO BID MADAN Stop: 12/31/20 14:29 Nitroglycerin (Nitroglycerin Sl 0.4 Mg/Tab Tab) 0.4 mg SL UD PRN PRN Reason: Chest Pain Stop: 12/31/20 05:31
[2020-12-01] MEDS: ASPIRIN 81 MG CHEW PO SCH (14:55)
[2020-12-01] MEDS: METOPROLOL TARTRATE 25 MG TAB PO SCH ×2 (14:55→21:28)
--- NOTE | 2020-12-01 16:39 | Emergency Department Note ---
Impression & Plan Syncope and collapse, Tachycardia ED Provider Note CHIEF COMPLAINT: Syncope, shortness of breath HISTORY OF PRESENT ILLNESS: This 50-year-old male patient presents to the emergency department with complaints of shortness of breath x2 to 3 days, dry cough that began today and now a syncopal episode after ambulating up the stairs today. Patient states he went to a green party this evening with his family, had 2 alcoholic drinks but did not feel intoxicated. He states he ambulated up the stairs it began to feel lightheaded and the next thing he knew he was on the floor. He does remember sitting down at the top of the stairs, thus he does not feel he injured himself significantly. His witnessed the episode. He states he woke up to her calling 911. He denies any recent chest pain, fevers, chills, vomiting or diarrhea. REVIEW OF SYSTEMS: A review of systems was performed with positives and pertinent negatives listed in the history of present illness. 10 systems were reviewed and are otherwise negative. ALLERGIES: see below MEDICATIONS: see below PMH: see below SOCIAL HISTORY: see below DDx: Vasovagal event, dehydration, infection, hypoglycemia, electrolyte abnor malities, cardiac sources, intracerebral event, pulmonary embolism, seizure, toxicologic, neurologic, as well as other pathologies. PHYSICAL EXAM: Vital signs reviewed. General: Well-appearing 50 yo male, in no significant distress. HEENT: No scleral icterus, PERRLA, neck supple. Atraumatic. Faint petechial rash noted to the face Cardiovascular: Tachycardic but regular Pulmonary: Coarse breath sounds to auscultation bilaterally, normal work of breathing on room air. Abdomen: Soft, nontender, nondistended, positive bowel sounds. Musculoskeletal: Atraumatic, no peripheral edema. Neurologic: Patient awake alert and oriented x 3, speech is clear Skin: Warm, dry, petechial rash noted to the face only, not associated to the anterior chest, upper back or extremities. EMERGENCY DEPARTMENT COURSE/MDM: This patient was evaluated and appeared to be in no significant distress. IV access was obtained and laboratory work was drawn. Patient was placed on cardiac tech and noted to be in a sinus tachycardia. Patient's blood pressure has remained stable. Oxygenation on room air is approximately 93%. Patient states he is not Covid vaccinated but has tested negative x2 via PCR. CT angiogram of the chest was performed with D- dimer greater than 4000. The study is negative for PE, follow-up ultrasounds of the bilateral lower extremities are also negative for DVT. Troponin is negative but detectable. Patient's presentation is concerning particularly as there is pulmonary vascular hypertension and MONITORING: An order for cardiac monitoring was placed and the patient is noted to be in a sinus tachycardia at 112 beats per minute. RADIOLOGY: see below EKG: Sinus tachycardia 102 bpm. QTc is 484. Normal axis with nonspecific ST and T wave abnormality. left atrial enlargement. DISPOSITION: Hospitalist evaluation Past Med/Surg History Medical History (Updated 12/01/20 @ 17:35 by Elisabet Landa MD) Syncope and collapse Social History Smoking Status: Never smoker Second Hand Exposure: No; Do You Dip or Chew Tobacco: No; Tobacco Cessation Education Requested by Patient: No Hx Alcohol Use: Yes Hx Substance Use: No Communication Ability: Effective Currency Examiner Required: No Beliefs That Will Affect Care: None marital status: Current Living Situation: Spouse How many Children do You have: 2 Other Information That Helps Us Care for You: No Feels Safe at Home: Yes Safety Concerns: Feels Safe At This Time Assistive Devices: None Allergies Allergies Allergy/AdvReac Type Severity Reaction Status Date / Time No Known Allergies Allergy Verified 12/01/20 00:37 Home Meds Home Medications Medication Instructions Recorded Confirmed Balance Of Nature Vitamin 1 tab PO DAILY 12/01/20 12/01/20 Results & Data (ED) Vital Signs Vital Signs - 24 hr 11/30/20 23:56 12/01/20 00:00 12/01/20 01:00 Temperature 36.6 C Temperature Source Oral Pulse Rate 94 H 96 H 112 H Pulse Rate [Finger] Pulse Rate from SpO2 Sensor 95 H 112 H Respiratory Rate 20 19 23 Respiratory Effort / Characteristics Blood Pressure 130/75 130/75 155/85 H Blood Pressure Mean 93 93 108 Pulse Oximetry 96 95 95 Oxygen Delivery Method Room Air Room Air Sepsis Recent Fever Within 48 Hours No Sepsis New/Unexplained Change in Mental Status No Sepsis Action Taken by Nursing No Action Required 12/01/20 01:43 12/01/20 02:00 12/01/20 03:30 Temperature Temperature Source Pulse Rate 117 H 111 H 104 H Pulse Rate [Finger] Pulse Rate from SpO2 Sensor 116 H 111 H 104 H Respiratory Rate 24 22 26 H Respiratory Effort / Characteristics Blood Pressure 141/87 H 142/87 H 122/73 Blood Pressure Mean 105 105 89 Pulse Oximetry 93 94 92 Oxygen Delivery Method Room Air Room Air Room Air Sepsis Recent Fever Within 48 Hours Sepsis New/Unexplained Change in Mental Status Sepsis Action Taken by Nursing 12/01/20 04:00 12/01/20 04:01 12/01/20 04:20 Temperature Temperature Source Pulse Rate 108 H 107 H Pulse Rate [Finger] 106 H Pulse Rate from SpO2 Sensor 107 H 110 H Respiratory Rate 17 20 19 Respiratory Effort / Characteristics Non-Labored Spontaneous Blood Pressure 129/80 150/80 H Blood Pressure Mean 96 103 Pulse Oximetry 99 96 96 Oxygen Delivery Method Room Air Room Air Room Air Sepsis Recent Fever Within 48 Hours Sepsis New/Unexplained Change in Mental Status Sepsis Action Taken by [facility] Medications Current Medication List: was personally reviewed by me Laboratory Data Attestation: I reviewed the patient's lab results. Result diagrams: 12/01/20 07:23 12/01/20 07:23 Lab Results 12/01/20 12/01/20 12/01/20 Range/Units 00:35 00:35 00:36 WBC 10.92 H (4.8-10.8) K/uL RBC 4.64 L (4.7-6.1) M/uL Hgb 13.3 L (14.0-18.0) g/dL Hct 39.5 L (42-52) % MCV 85.1 (80-100) fL MCH 28.7 (25-34) pg MCHC 33.7 (32-36) g/dL RDW Std Deviation 42.6 (36.4-46.3) fL RDW Coeff of Cathryn 13.7 (11.5-14.5) % Plt Count 274 (130-400) K/uL MPV 10.2 (7.4-10.4) fL Immature Gran % (Auto) 0.2 % Neut % (Auto) 64.5 % Lymph % (Auto) 28.9 % Ritchie % (Auto) 5.0 % Eos % (Auto) 1.0 % Baso % (Auto) 0.4 % Neut # (Auto) 7.04 H (1.4-6.5) K/uL Lymph # (Auto) 3.16 (1.2-3.4) K/uL Ritchie # (Auto) 0.55 (0.11-0.59) K/uL Eos # (Auto) 0.11 (0-0.5) K/uL Baso # (Auto) 0.04 (0-0.2) K/uL Immature Gran # (Auto) 0.02 (0.00-0.02) K/uL ESR (0-15) mm/hr PT (9.0-12.0) Seconds INR (0.9-1.1) APTT (21.0-31.0) Seconds PTT Ratio D-Dimer (0-500) ug/L FEU Sodium (136-145) mmol/L Potassium (3.5-5.1) mmol/L Chloride (98-107) mmol/L Carbon Dioxide (21-32) mmol/L Anion Gap (3-11) BUN (7-18) mg/dl Creatinine (0.6-1.4) mg/dl Est Cr Clr Drug Dosing Est GFR ( Amer) ml/min Est GFR (Non-Af Amer) ml/min BUN/Creatinine Ratio (10-20) Glucose (70-99) mg/dl Calcium (8.5-10.1) mg/dl Magnesium (1.8-2.4) mg/dl Total Bilirubin (0.2-1) mg/dl AST (15-37) U/L ALT (12-78) U/L Alkaline Phosphatase (45-117) U/L Lactate Dehydrogenase (87-241) U/L Troponin I (0-0.045) ng/ml C-Reactive Protein (0-0.29) mg/dl Total Protein (6.4-8.2) gm/dl Albumin (3.4-5.0) gm/dl Globulin (2.5-4.0) gm/dl Albumin/Globulin Ratio (0.9-2) TSH (0.300-4.500) uIu/ml Urine Color Urine Appearance (Clear) Urine pH (4.5-7.5) Ur Specific [place] (1.000-1.030) Urine Protein (Negative) Urine Glucose (UA) (Negative) Urine Ketones (Negative) Urine Blood (Negative) Urine Nitrite (Negative) Urine Bilirubin (Negative) Urine Urobilinogen (Negative) Ur Leukocyte Esterase (Negative) Urine WBC (Auto) (0-5) /hpf Urine RBC (Auto) (0-4) /hpf U Hyaline Cast (Auto) (0-5) /lpf U Epithel Cells (Auto) (0-5) /lpf Urine Bacteria (Auto) (Negative) Ethyl Alcohol mg/dL (0-3) mg/dl Adenovirus (PCR) (NotDetected) Anaplasma Smear Babesia Smear B. pertussis DNA (PCR) (NotDetected) B.parapertussis DNA PCR (NotDetected) C. pneumoniae DNA (PCR) (NotDetected) Coronavirus OC43 (PCR) (NotDetected) Coronavirus HKU1 (PCR) (NotDetected) Coronavirus 229E (PCR) (NotDetected) COVID-19 Eval Order Covid19 at [facility] SARS-CoV-2 (PCR) NEGATIVE (Negative) Coronavirus NL63 (PCR) (NotDetected) Human Metapneumovir PCR (NotDetected) Influenza Type A (PCR) (NotDetected) Influenza Type B (PCR) (NotDetected) M. pneumoniae (PCR) (NotDetected) Parainfluenza 1 (PCR) (NotDetected) Parainfluenza 2 (PCR) (NotDetected) Parainfluenza 3 (PCR) (NotDetected) Parainfluenza 4 (PCR) (NotDetected) RSV (PCR) (NotDetected) Entero/Rhino (PCR) (NotDetected) 12/01/20 12/01/20 12/01/20 Range/Units 00:36 00:36 00:36 WBC (4.8-10.8) K/uL RBC (4.7-6.1) M/uL Hgb (14.0-18.0) g/dL Hct (42-52) % MCV (80-100) fL MCH (25-34) pg MCHC (32-36) g/dL RDW Std Deviation (36.4-46.3) fL RDW Coeff of Cathryn (11.5-14.5) % Plt Count (130-400) K/uL MPV (7.4-10.4) fL Immature Gran % (Auto) % Neut % (Auto) % Lymph % (Auto) % Ritchie % (Auto) % Eos % (Auto) % Baso % (Auto) % Neut # (Auto) (1.4-6.5) K/uL Lymph # (Auto) (1.2-3.4) K/uL Ritchie # (Auto) (0.11-0.59) K/uL Eos # (Auto) (0-0.5) K/uL Baso # (Auto) (0-0.2) K/uL Immature Gran # (Auto) (0.00-0.02) K/uL ESR 58 H (0-15) mm/hr PT 10.8 (9.0-12.0) Seconds INR 1.1 (0.9-1.1) APTT 22.1 (21.0-31.0) Seconds PTT Ratio 0.8 D-Dimer 4110 H* (0-500) ug/L FEU Sodium 135 L (136-145) mmol/L Potassium 3.5 (3.5-5.1) mmol/L Chloride 103 (98-107) mmol/L Carbon Dioxide 25 (21-32) mmol/L Anion Gap 7.0 (3-11) BUN 21 H (7-18) mg/dl Creatinine 1.27 (0.6-1.4) mg/dl Est Cr Clr Drug Dosing Not Reportable Est GFR ( Amer) 76.4 ml/min Est GFR (Non-Af Amer) 65.9 ml/min BUN/Creatinine Ratio 16.7 (10-20) Glucose 111 H (70-99) mg/dl Calcium 8.4 L (8.5-10.1) mg/dl Magnesium 2.1 (1.8-2.4) mg/dl Total Bilirubin 0.3 (0.2-1) mg/dl AST 21 (15-37) U/L ALT 25 (12-78) U/L Alkaline Phosphatase 61 (45-117) U/L Lactate Dehydrogenase (87-241) U/L Troponin I 0.032 (0-0.045) ng/ml C-Reactive Protein < 0.29 (0-0.29) mg/dl Total Protein 7.1 (6.4-8.2) gm/dl Albumin 3.4 (3.4-5.0) gm/dl Globulin 3.7 (2.5-4.0) gm/dl Albumin/Globulin Ratio 0.9 (0.9-2) TSH 3.170 (0.300-4.500) uIu/ml Urine Color Urine Appearance (Clear) Urine pH (4.5-7.5) Ur Specific [place] (1.000-1.030) Urine Protein (Negative) Urine Glucose (UA) (Negative) Urine Ketones (Negative) Urine Blood (Negative) Urine Nitrite (Negative) Urine Bilirubin (Negative) Urine Urobilinogen (Negative) Ur Leukocyte Esterase (Negative) Urine WBC (Auto) (0-5) /hpf Urine RBC (Auto) (0-4) /hpf U Hyaline Cast (Auto) (0-5) /lpf U Epithel Cells (Auto) (0-5) /lpf Urine Bacteria (Auto) (Negative) Ethyl Alcohol mg/dL (0-3) mg/dl Adenovirus (PCR) (NotDetected) Anaplasma Smear Babesia Smear B. pertussis DNA (PCR) (NotDetected) B.parapertussis DNA PCR (NotDetected) C. pneumoniae DNA (PCR) (NotDetected) Coronavirus OC43 (PCR) (NotDetected) Coronavirus HKU1 (PCR) (NotDetected) Coronavirus 229E (PCR) (NotDetected) COVID-19 Eval Order SARS-CoV-2 (PCR) (Negative) Coronavirus NL63 (PCR) (NotDetected) Human Metapneumovir PCR (NotDetected) Influenza Type A (PCR) (NotDetected) Influenza Type B (PCR) (NotDetected) M. pneumoniae (PCR) (NotDetected) Parainfluenza 1 (PCR) (NotDetected) Parainfluenza 2 (PCR) (NotDetected) Parainfluenza 3 (PCR) (NotDetected) Parainfluenza 4 (PCR) (NotDetected) RSV (PCR) (NotDetected) Entero/Rhino (PCR) (NotDetected) 12/01/20 12/01/20 12/01/20 Range/Units 00:36 00:36 01:11 WBC (4.8-10.8) K/uL RBC (4.7-6.1) M/uL Hgb (14.0-18.0) g/dL Hct (42-52) % MCV (80-100) fL MCH (25-34) pg MCHC (32-36) g/dL RDW Std Deviation (36.4-46.3) fL RDW Coeff of Cathryn (11.5-14.5) % Plt Count (130-400) K/uL MPV (7.4-10.4) fL Immature Gran % (Auto) % Neut % (Auto) % Lymph % (Auto) % Ritchie % (Auto) % Eos % (Auto) % Baso % (Auto) % Neut # (Auto) (1.4-6.5) K/uL Lymph # (Auto) (1.2-3.4) K/uL Ritchie # (Auto) (0.11-0.59) K/uL Eos # (Auto) (0-0.5) K/uL Baso # (Auto) (0-0.2) K/uL Immature Gran # (Auto) (0.00-0.02) K/uL ESR (0-15) mm/hr PT (9.0-12.0) Seconds INR (0.9-1.1) APTT (21.0-31.0) Seconds PTT Ratio D-Dimer (0-500) ug/L FEU Sodium (136-145) mmol/L Potassium (3.5-5.1) mmol/L Chloride (98-107) mmol/L Carbon Dioxide (21-32) mmol/L Anion Gap (3-11) BUN (7-18) mg/dl Creatinine (0.6-1.4) mg/dl Est Cr Clr Drug Dosing Est GFR ( Amer) ml/min Est GFR (Non-Af Amer) ml/min BUN/Creatinine Ratio (10-20) Glucose (70-99) mg/dl Calcium (8.5-10.1) mg/dl Magnesium (1.8-2.4) mg/dl Total Bilirubin (0.2-1) mg/dl AST (15-37) U/L ALT (12-78) U/L Alkaline Phosphatase (45-117) U/L Lactate Dehydrogenase 235 (87-241) U/L Troponin I (0-0.045) ng/ml C-Reactive Protein (0-0.29) mg/dl Total Protein (6.4-8.2) gm/dl Albumin (3.4-5.0) gm/dl Globulin (2.5-4.0) gm/dl Albumin/Globulin Ratio (0.9-2) TSH (0.300-4.500) uIu/ml Urine Color Urine Appearance (Clear) Urine pH (4.5-7.5) Ur Specific [place] (1.000-1.030) Urine Protein (Negative) Urine Glucose (UA) (Negative) Urine Ketones (Negative) Urine Blood (Negative) Urine Nitrite (Negative) Urine Bilirubin (Negative) Urine Urobilinogen (Negative) Ur Leukocyte Esterase (Negative) Urine WBC (Auto) (0-5) /hpf Urine RBC (Auto) (0-4) /hpf U Hyaline Cast (Auto) (0-5) /lpf U Epithel Cells (Auto) (0-5) /lpf Urine Bacteria (Auto) (Negative) Ethyl Alcohol mg/dL < 3.0 (0-3) mg/dl Adenovirus (PCR) (NotDetected) Anaplasma Smear See Comment Babesia Smear See Comment B. pertussis DNA (PCR) (NotDetected) B.parapertussis DNA PCR (NotDetected) C. pneumoniae DNA (PCR) (NotDetected) Coronavirus OC43 (PCR) (NotDetected) Coronavirus HKU1 (PCR) (NotDetected) Coronavirus 229E (PCR) (NotDetected) COVID-19 Eval Order SARS-CoV-2 (PCR) (Negative) Coronavirus NL63 (PCR) (NotDetected) Human Metapneumovir PCR (NotDetected) Influenza Type A (PCR) (NotDetected) Influenza Type B (PCR) (NotDetected) M. pneumoniae (PCR) (NotDetected) Parainfluenza 1 (PCR) (NotDetected) Parainfluenza 2 (PCR) (NotDetected) Parainfluenza 3 (PCR) (NotDetected) Parainfluenza 4 (PCR) (NotDetected) RSV (PCR) (NotDetected) Entero/Rhino (PCR) (NotDetected) 12/01/20 12/01/20 12/01/20 Range/Units 03:15 04:32 04:32 WBC (4.8-10.8) K/uL RBC (4.7-6.1) M/uL Hgb (14.0-18.0) g/dL Hct (42-52) % MCV (80-100) fL MCH (25-34) pg MCHC (32-36) g/dL RDW Std Deviation (36.4-46.3) fL RDW Coeff of Cathryn (11.5-14.5) % Plt Count (130-400) K/uL MPV (7.4-10.4) fL Immature Gran % (Auto) % Neut % (Auto) % Lymph % (Auto) % Ritchie % (Auto) % Eos % (Auto) % Baso % (Auto) % Neut # (Auto) (1.4-6.5) K/uL Lymph # (Auto) (1.2-3.4) K/uL Ritchie # (Auto) (0.11-0.59) K/uL Eos # (Auto) (0-0.5) K/uL Baso # (Auto) (0-0.2) K/uL Immature Gran # (Auto) (0.00-0.02) K/uL ESR (0-15) mm/hr PT (9.0-12.0) Seconds INR (0.9-1.1) APTT (21.0-31.0) Seconds PTT Ratio D-Dimer (0-500) ug/L FEU Sodium (136-145) mmol/L Potassium (3.5-5.1) mmol/L Chloride (98-107) mmol/L Carbon Dioxide (21-32) mmol/L Anion Gap (3-11) BUN (7-18) mg/dl Creatinine (0.6-1.4) mg/dl Est Cr Clr Drug Dosing Est GFR ( Amer) ml/min Est GFR (Non-Af Amer) ml/min BUN/Creatinine Ratio (10-20) Glucose (70-99) mg/dl Calcium (8.5-10.1) mg/dl Magnesium (1.8-2.4) mg/dl Total Bilirubin (0.2-1) mg/dl AST (15-37) U/L ALT (12-78) U/L Alkaline Phosphatase (45-117) U/L Lactate Dehydrogenase (87-241) U/L Troponin I (0-0.045) ng/ml C-Reactive Protein (0-0.29) mg/dl Total Protein (6.4-8.2) gm/dl Albumin (3.4-5.0) gm/dl Globulin (2.5-4.0) gm/dl Albumin/Globulin Ratio (0.9-2) TSH (0.300-4.500) uIu/ml Urine Color Yellow Urine Appearance Clear (Clear) Urine pH 5.0 (4.5-7.5) Ur Specific [place] 1.036 H (1.000-1.030) Urine Protein Trace H (Negative) Urine Glucose (UA) Negative (Negative) Urine Ketones Negative (Negative) Urine Blood Negative (Negative) Urine Nitrite Negative (Negative) Urine Bilirubin Negative (Negative) Urine Urobilinogen Negative (Negative) Ur Leukocyte Esterase Negative (Negative) Urine WBC (Auto) 1-5 (0-5) /hpf Urine RBC (Auto) 0-4 (0-4) /hpf U Hyaline Cast (Auto) 1-5 (0-5) /lpf U Epithel Cells (Auto) 5-10 H (0-5) /lpf Urine Bacteria (Auto) Negative (Negative) Ethyl Alcohol mg/dL (0-3) mg/dl Adenovirus (PCR) Not Detected (NotDetected) Anaplasma Smear Babesia Smear B. pertussis DNA (PCR) Not Detected (NotDetected) B.parapertussis DNA PCR Not Detected (NotDetected) C. pneumoniae DNA (PCR) Not Detected (NotDetected) Coronavirus OC43 (PCR) Not Detected (NotDetected) Coronavirus HKU1 (PCR) Not Detected (NotDetected) Coronavirus 229E (PCR) Not Detected (NotDetected) COVID-19 Eval Order RESPNP at [facility] SARS-CoV-2 (PCR) Not Detected (Negative) Coronavirus NL63 (PCR) Not Detected (NotDetected) Human Metapneumovir PCR Not Detected (NotDetected) Influenza Type A (PCR) Not Detected (NotDetected) Influenza Type B (PCR) Not Detected (NotDetected) M. pneumoniae (PCR) Not Detected (NotDetected) Parainfluenza 1 (PCR) Not Detected (NotDetected) Parainfluenza 2 (PCR) Not Detected (NotDetected) Parainfluenza 3 (PCR) Not Detected (NotDetected) Parainfluenza 4 (PCR) Not Detected (NotDetected) RSV (PCR) Not Detected (NotDetected) Entero/Rhino (PCR) Not Detected (NotDetected) Administered Medications Aspirin (Aspirin 81 Mg Chew) 81 mg PO DAILY MADAN Stop: 12/31/20 14:29 Last Admin: 12/01/20 14:55 Dose: 81 mg Documented by: [id number] Enoxaparin Sodium (Enoxaparin Inj 40 Mg/0.4 Ml Syr) 40 mg SQ Q24H MADAN Stop: 12/31/20 08:59 Last Admin: 12/01/20 10:13 Dose: Not Given Documented by: [id number] Metoprolol Tartrate (Metoprolol Tartrate 25 Mg Tab) 12.5 mg PO BID MADAN Stop: 12/31/20 14:29 Last Admin: 12/01/20 14:55 Dose: 12.5 mg Documented by: [id number] Discontinued Medications Albuterol (Albut/Ipratrop 3mg/0.5mg Neb 3 Ml Vial) 3 ml NEB NOW STA Stop: 12/01/20 03:39 Last Admin: 12/01/20 03:58 Dose: 3 ml Documented by: [id number] Furosemide (Furosemide 40 Mg/4 Ml Vial) 40 mg IV ONE ONE Stop: 12/01/20 12:16 Last Admin: 12/01/20 12:45 Dose: 40 mg Documented by: [id number] Sodium Chloride (Nss 1000ml) 1,000 mls @ 125 mls/hr IV .Q8H MADAN Stop: 12/31/20 00:14 Last Infusion: 12/01/20 09:12 Dose: 0 mls/hr Documented by: [id number] Admin: 12/01/20 02:43 Dose: 125 mls/hr Documented by: [id number] Sodium Chloride (Nss 1000ml) 1,000 mls @ 999 mls/hr IV .Q1H1M ONE Stop: 12/01/20 01:31 Last Infusion: 12/01/20 02:24 Dose: 0 mls/hr Documented by: [id number] Admin: 12/01/20 01:19 Dose: 999 mls/hr Documented by: [id number] Sodium Chloride (Nss 1000ml) 1,000 mls @ 125 mls/hr IV .Q8H MADAN Stop: 12/31/20 05:31 Last Infusion: 12/01/20 11:51 Dose: 0 mls/hr Documented by: [id number] Admin: 12/01/20 07:15 Dose: 125 mls/hr Documented by: [id number] Ioversol (Optiray 320 125ml) 118 ml IV ONCE ONE Stop: 12/01/20 01:56 Last Admin: 12/01/20 01:56 Dose: 118 ml Documented by: [id number] Methylprednisolone (Methylprednisolone 125 Mg/2 Ml Vial) 60 mg IV NOW STA Stop: 12/01/20 03:39 Last Admin: 12/01/20 03:48 Dose: 60 mg Documented by: [id number] Imaging Data Radiologist's Impression: Chest X-Ray 12/01/20 00:11 XR chest 1V portable CLINICAL HISTORY: syncope COMPARISON STUDY: No previous studies for comparison. FINDINGS: Lung volumes are normal. No pneumothorax or pleural effusion is colin ntified. Interlobular septal thickening is present. Mild cardiomegaly is noted. IMPRESSION: Mild cardiomegaly with interstitial pulmonary edema. ACT 112: Negative or not required by law. Electronically signed by: Kushal Archuleta M.D. 12/01/2020 8:52 AM Chest CTA 12/01/20 00:43 CT ANGIOGRAPHY OF THE CHEST, PULMONARY EMBOLUS PROTOCOL CLINICAL HISTORY: Cough. Evaluate for pulmonary embolus. COMPARISON STUDY: Chest radiograph December 01, 2020. TECHNIQUE: Following IV administration of 118 mL of Optiray, helical axial images of the chest were obtained utilizing the pulmonary embolus protocol. Maximal intensity projections and sagittal and coronal reformats were viewed on an independent 3D workstation. IV contrast was administered without complication. Automated exposure control was utilized for the study. A dose lowering technique was utilized adhering to the principles of ALARA. FINDINGS: No pulmonary emboli are identified. There is no thoracic aortic dissection. Mild cardiomegaly is noted. There is possible left ventricular hypertrophy. There is no pericardial effusion. There are trace bilateral pleural effusions. Interlobular septal thickening is noted. There are groundglass opacities which likely reflect alveolar edema. Bronchial wall thickening is present. There is no pneumothorax. Visual portions of the upper abdomen are unremarkable. IMPRESSION: 1. No pulmonary emboli identified. 2. Interstitial and alveolar pulmonary edema with trace bilateral pleural effusions. Mild cardiomegaly and possible left ventricular hypertrophy. Cardiology consultation is recommended. ACT 112: Negative or not required by law. Electronically signed by: Kushal Archuleta M.D. 12/01/2020 9:[address] 12/01/20 01:[address] DOSE: 2133.67 mGy.cm HISTORY: petechiae rash face, syncope TECHNIQUE: Multiaxial CT images of the head were performed without the use of intravenous contrast. Automated exposure control was utilized for this study. A dose lowering technique was utilized adhering to the principles of ALARA. Comparison: None. Findings: The paranasal sinuses and mastoid air cells are clear. The calvarium and skull base are intact. The ventricles and sulci are within normal limits. There is no mass, hematoma, midline shift, or acute infarct. Impression: No acute intracranial abnormality. ACT 112: Negative or not required by law. Electronically signed by: Greg Bob M.D. 12/01/2020 8:41 AM Venous Doppler Study 12/01/20 04:01 BILATERAL LOWER EXTREMITY VENOUS DOPPLER CLINICAL HISTORY: Syncope. Evaluate for deep venous thrombus. COMPARISON STUDY: No previous studies for comparison. TECHNIQUE: Sonography of the deep venous system of the bilateral lower extremities was performed. Compression and augmentation were evaluated. FINDINGS: The bilateral common femoral, superficial femoral and popliteal veins were compressible. Augmentation was normal. Flow was shown within the deep calf vessels. IMPRESSION: No evidence of deep venous thrombus within the bilateral lower extremities. ACT 112: Negative or not required by law. Electronically signed by: Kushal Archuleta M.D. 12/01/2020 8:39 AM Blood Pressure Blood Pressure Findings: Normal blood pressure Blood Pressure Disposition: did not require urgent referral Discharge Plan Visit Data Chief Complaint: Syncope Stated Complaint: SINGLE SYNCOPAL EPISODE ED Provider: Elisabet Landa Discharge Problem: Syncope and collapse, Tachycardia Patient Disposition: Admitted As Inpatient Discharge Instructions Interventions: ED Discharge Assessment Last Done: 12/01/20 05:28
[2020-12-02] MEDS ORDERED: HEPARIN (PORCINE) 1000 UNIT/ML 10 ML (CATH LAB USE ONLY) ONE (09:22)
[2020-12-02] MEDS ORDERED: niCARdipine HCL INJ 2.5 MG/ML 10 ML AMP ONE (09:23)
[2020-12-02] MEDS ORDERED: fentaNYL citrate 100 MCG/2 ML VIAL ONE (09:23)
[2020-12-02] MEDS ORDERED: NITROGLYCERIN/D5W 100MCG/ML 20ML SYR ONE (09:23)
[2020-12-02] MEDS ORDERED: MIDAZOLAM HCL 1 MG/ML 2ML VIAL ONE (09:23)
--- NOTE | 2020-12-02 09:26 | Pre Anesthesia Assessment ---
Date of Service December 02, 2020 Pre Sedation Assessment Vital Signs Temp Pulse Pulse Resp BP BP Pulse Ox 12/02/20 09:09 89 16 97 12/02/20 08:00 37.0 C 83 16 145/79 H 97 12/02/20 05:50 36.7 C 82 21 116/67 97 12/02/20 01:55 85 12/02/20 01:30 37.0 C 94 H 19 142/80 H 96 12/02/20 00:27 80 12/01/20 23:21 80 14 110/64 98 12/01/20 21:27 90 17 132/79 99 12/01/20 19:00 36.9 C 90 17 112/67 99 12/01/20 15:25 102 H 16 140/82 96 12/01/20 12:00 99 H 22 142/83 H 94 12/01/20 10:56 99 H 22 142/83 H 94 Pre-Sedation Airway Assessment Smoking Status: Never smoker Hx Sleep Apnea: No Short, Thick Neck: No Thyromental Distance: > or= 3.5 Finger Breadths Oral Cavity: + WNL Mallampati Class: III ASA: ASA2 NPO Status Date of Last Intake of Fluids: 12/01/20 Time of Last Intake of Fluids: 20:00 Date of Last Intake of Solid Food: 12/01/20 Time of Last Intake of Solid Foods: 20:00 Notes The planned sedation has been discussed with the patient. Informed Consent was obtained. I have identified the patient, determined the appropriateness of sedation and have assessed the patient immediately prior to the procedure. All medicine(s) and interventions are by my order.
--- NOTE | 2020-12-02 10:19 | Cardiac Catheterization ---
Date of Service December 02, 2020 Cardiac Cath Report Cardiac Cath Report Procedure: 1. Left heart catheterization 2. Coronary angiography 3. Left ventriculography History: This is a 50-year-old male patient who had a syncopal event and possible aborted sudden . By echocardiography he has what appears to be a hypertrophic cardiomyopathy of the apical variety. The procedure is being completed to rule out ischemic heart disease. Procedure summary: After informed consent was obtained the patient was brought to the cardiac catheterization lab where he was prepped and draped in the usual manner. A right transradial approach was performed utilizing preformed 5 [place] diagnostic catheters and a 5 [place] pigtail catheter. Following the procedure the patient was returned to his room in stable condition. ACC data: Start time 9:31 AM End time 9:50 AM Opening aortic pressure 104/76 Closing aortic pressure 128/83 Left ventricular pressure 139/12 Sedation 1 mg intravenous Versed IV fluid 30 cc normal saline Contrast 102 cc Optiray Fluoroscopy time 3.5 minutes Radiation 962 mGy DAP 97.27 Gy/cm Right dominant system AUC score 9 Coronary angiography: Selective injections of the left coronary artery revealed the left main trunk to be patent. The left circumflex artery consists mainly of a large posterior lateral marginal branch. There is a small to medium size ramus branch as well. The left coronary system is widely patent. The LAD extends around the apex of the heart. There are 2 large diagonal branches. The LAD system is widely patent. Selective injections of the right coronary artery reveal it to be dominant. The right coronary artery is widely patent. Left ventriculogram: The left ventricle is hyperdynamic with a small cavity size at the apex of the heart. The mitral valve is competent. The aortic root and ascending aorta have normal morphology and diameter. Summary: The patient has widely patent coronary anatomy. Left ventriculogram is consistent with a hypertrophic cardiomyopathy of the apical variant. Recommendations: No coronary intervention as the coronary anatomy is widely patent. Further evaluation for a hypertrophic cardiomyopathy is recommended.
[2020-12-02 10:23] LABS: Basophils # (auto) 0.02 K/uL (0-0.2); Basophils % (auto) 0.2 %; Eosinophils # (auto) 0.03 K/uL (0-0.5); Eosinophils % (auto) 0.3 %; Hematocrit (blood only) 38.4 % (42-52); Immature Granulocytes # (auto) 0.01 K/uL (0.00-0.02); Immature Granulocytes % (auto) 0.1 %; Lymphocytes # (auto) 2.76 K/uL (1.2-3.4); Lymphocytes % (auto) 24.7 %; Mean Corpuscular Hemoglobin 28.6 pg (25-34); Mean Corpuscular Hgb Conc 33.9 g/dL (32-36); Mean Corpuscular Volume 84.4 fL (80-100); Mean Platelet Volume 10.6 fL (7.4-10.4); Monocytes # (auto) 1.06 K/uL (0.11-0.59); Monocytes % (auto) 9.5 %; Neutrophils # (auto) 7.28 K/uL (1.4-6.5); Neutrophils % (auto) 65.2 %; Platelet Count 264 K/uL (130-400); RDW Coefficient of Variation 14.1 % (11.5-14.5); RDW Standard Deviation 43.6 fL (36.4-46.3); Red Blood Count 4.55 M/uL (4.7-6.1); White Blood Count 11.16 K/uL (4.8-10.8)
[2020-12-02 10:41] LABS: BUN Creatinine Ratio 23.3 (10-20); Calcium 8.6 mg/dl (8.5-10.1); Creatinine Clr Calc Pharmacy 119.5 ml/min; Est GFR (African American) 98.4 ml/min; Est GFR (Non-African American) 84.9 ml/min; Potassium 3.9 mmol/L (3.5-5.1)
[2020-12-02] MEDS: METOPROLOL TARTRATE 25 MG TAB PO SCH ×3 (11:06→20:21)
--- NOTE | 2020-12-02 11:18 | Post Anesthesia Assessment ---
Date of Service December 02, 2020 Post Sedation Assessment Vital Signs Temp Pulse Pulse Resp BP BP Pulse Ox 12/02/20 09:09 89 16 97 12/02/20 08:00 37.0 C 83 16 145/79 H 97 12/02/20 05:50 36.7 C 82 21 116/67 97 12/02/20 01:55 85 12/02/20 01:30 37.0 C 94 H 19 142/80 H 96 12/02/20 00:27 80 12/01/20 23:21 80 14 110/64 98 12/01/20 21:27 90 17 132/79 99 12/01/20 19:00 36.9 C 90 17 112/67 99 12/01/20 15:25 102 H 16 140/82 96 12/01/20 12:00 99 H 22 142/83 H 94 Discharge Sedation Level of Care: Fast Track Phase II Post Sedation Plan On clinical assessment, the patient appears to have tolerated the sedation without complications. Patient is recovering as anticipated. Patient will continue to be monitored by nursing and may be discharged when sedation discharge criteria are met per below protocol. Upon Completions of procedure up to 15 minutes continue every 5 minute vital signs and the P.A.R. score; then discharge to a Phase I or Fast Track to Phase II per the following guidelines: * Discharge Patient to appropriate Phase II area if PAR is 8 or greater or return to pre- procedure baseline. The post - procedure orders will be as directed. * If PAR score is less than 8 or not return to pre-procedure baseline then patient will follow Phase I monitoring till PAR is reached for Phase II. The Phase I may be done in procedure room or may call to secure a Phase I area. * If naloxone or flumazenil are used for reversal, hold in Phase I for continu ed monitoring from when last reversal dose was given for a minimum of 60 minutes or longer pending the nurse and/or physician discretion of patient condition before discharge to Phase II. Please call the Sedation Physician to re-evaluate and complete post-note for discharge to Phase II area. Do NOT discharge from procedure sedation or Phase 1 until post- sedation evaluation note is complete by procedure /sedation MD Sedation Discharge Instructions to be given to the patient at discharge to home.
[2020-12-02] MEDS: ASPIRIN 81 MG CHEW PO SCH (11:54)
--- NOTE | 2020-12-02 12:33 | Cardiology Progress Note ---
Date of Service December 02, 2020 Assessment & Plan (1) Syncope and collapse: (2) Hypertrophic cardiomyopathy: Plan: The patient underwent a cardiac catheterization today. He is widely patent coronary anatomy. All of the imaging performed suggest that he has a hype rtrophic cardiomyopathy of the apical variety. It is likely that he had an aborted sudden episode and is a high risk patient. Electrophysiology will see him later today for consideration of an ICD. I have increased his beta- armin. He should be on 81 mg of aspirin daily. He does not require long-term anticoagulation. Admission and Anticipated Discharge Date Admission Date: December 01, 2020 Subjective Spoke at length with the patient and his who was at his bedside. The patient has an apical hypertrophic cardiomyopathy and most likely had a sudden event which was spontaneously aborted. Patient will need further work-up including an EP evaluation. Review of Systems Review of Systems: Review of Systems: See HPI for pertinent positives. All other 10 point review of systems are negative. Physical Exam Physical Exam: General: no acute distress and stated age Head: normocephalic, no masses, lesions, tenderness or abnormalities Eyes: conjunctiva are pink and non-injected, sclera clear Neck: supple, no adenopathy, no bruits, normal jugular venous pulse, no hepatojugular reflux Chest: normal shape and normal respiratory effort Lungs: clear to auscultation and percussion Cardiac Exam: - regular rate & rhythm, no murmurs gallops or rubs - normal S1, normal S2 Pulses: 2(+) throughout Abdomen: abdomen soft, non-tender, no abnormal masses and no hepatosplenomegaly Musculoskeletal: no gait disturbance, no joint inflammation, no deforming arthritis Extremities: no edema and no cyanosis Neuro: grossly normal exam ENMT: Mallampati Class: III Results & Data ([facility]) Vital Signs (Past 12 Hours) Vital Signs Temp Pulse Pulse Resp BP BP Pulse Ox 12/02/20 09:09 89 16 97 12/02/20 08:00 37.0 C 83 16 145/79 H 97 12/02/20 05:50 36.7 C 82 21 116/67 97 12/02/20 01:55 85 12/02/20 01:30 37.0 C 94 H 19 142/80 H 96 Laboratory Results Laboratory Results - last 24 hr 12/01/20 12/01/20 12/02/20 07:23 11:40 01:35 WBC RBC Hgb Hct MCV MCH MCHC RDW Std Deviation RDW Coeff of Cathryn Plt Count MPV Immature Gran % (Auto) Neut % (Auto) Lymph % (Auto) [place] % (Auto) Eos % (Auto) Baso % (Auto) Neut # (Auto) Lymph # (Auto) [place] # (Auto) Eos # (Auto) Baso # (Auto) Immature Gran # (Auto) Sodium 135 L Potassium 4.3 D Chloride 107 Carbon Dioxide 21 Anion Gap 8.0 BUN 21 H Creatinine 1.13 Est Cr Clr Drug Dosing 108.9 Est GFR ( Amer) 88.0 Est GFR (Non-Af Amer) 75.9 BUN/Creatinine Ratio 18.8 Glucose 139 H Calcium 9.1 Magnesium 2.2 Troponin I 0.071 H* 0.057 H* NT-Pro-B Natriuret Pep 3153 H Nasal Screen MRSA (PCR) Negative 12/02/20 12/02/20 10:06 10:06 WBC 11.16 H RBC 4.55 L Hgb 13.0 L Hct 38.4 L MCV 84.4 MCH 28.6 MCHC 33.9 RDW Std Deviation 43.6 RDW Coeff of Cathryn 14.1 Plt Count 264 MPV 10.6 H Immature Gran % (Auto) 0.1 Neut % (Auto) 65.2 Lymph % (Auto) 24.7 [place] % (Auto) 9.5 Eos % (Auto) 0.3 Baso % (Auto) 0.2 Neut # (Auto) 7.28 H Lymph # (Auto) 2.76 [place] # (Auto) 1.06 H Eos # (Auto) 0.03 Baso # (Auto) 0.02 Immature Gran # (Auto) 0.01 Sodium 133 L Potassium 3.9 Chloride 103 Carbon Dioxide 23 Anion Gap 7.0 BUN 24 H Creatinine 1.03 Est Cr Clr Drug Dosing 119.5 Est GFR ( Amer) 98.4 Est GFR (Non-Af Amer) 84.9 BUN/Creatinine Ratio 23.3 H Glucose 100 H Calcium 8.6 Magnesium Troponin I NT-Pro-B Natriuret Pep Nasal Screen MRSA (PCR) Medications Administered Current Inpatient Medications Acetaminophen (Acetaminophen 325 Mg Tab) 650 mg PO Q4H PRN PRN Reason: Pain or Fever Stop: 12/31/20 05:31 Aspirin (Aspirin 81 Mg Chew) 81 mg PO DAILY [facility] Stop: 12/31/20 14:29 Last Admin: 12/02/20 11:54 Dose: 81 mg Documented by: Enoxaparin Sodium (Enoxaparin Inj 40 Mg/0.4 Ml Syr) 40 mg SQ Q24H [facility] Stop: 12/31/20 08:59 Last Admin: 12/01/20 10:13 Dose: Not Given Documented by: Metoprolol Tartrate (Metoprolol Tartrate 25 Mg Tab) 25 mg PO BID [facility] Stop: 01/01/21 10:29 Last Admin: 12/02/20 11:54 Dose: 25 mg Documented by: Nitroglycerin (Nitroglycerin Sl 0.4 Mg/Tab Tab) 0.4 mg SL UD PRN PRN Reason: Chest Pain Stop: 12/31/20 05:31
[2020-12-02] MEDS: ENOXAPARIN INJ 40 MG/0.4 ML SYR SQ SCH (12:34)
--- NOTE | 2020-12-02 16:34 | Electrocardiogram Report ---
Test Reason : Blood Pressure : / mmHG Vent. Rate : 106 BPM Atrial Rate : 106 BPM P-R Int : 190 ms QRS Dur : 088 ms QT Int : 372 ms P-R-T Axes : 069 028 111 degrees QTc Int : 494 ms Sinus tachycardia Biatrial enlargement Abnormal ECG No previous ECGs available Confirmed by aKleb Ward ([id number]) on 12/02/2020 4:33:28 PM Referred By: REFERRED SELF Confirmed By:Kaleb Ward
--- NOTE | 2020-12-02 16:49 | Electrocardiogram Report ---
Test Reason : Blood Pressure : / mmHG Vent. Rate : 102 BPM Atrial Rate : 102 BPM P-R Int : 192 ms QRS Dur : 088 ms QT Int : 372 ms P-R-T Axes : 059 011 168 degrees QTc Int : 484 ms Sinus tachycardia Left atrial enlargement Abnormal ECG When compared with ECG of 01-DEC-2020 00:29, (unconfirmed) No significant change Confirmed by Kaleb Ward ([id number]) on 12/02/2020 4:49:10 PM Referred By: REFERRED SELF Confirmed By:Kaleb Ward
--- NOTE | 2020-12-02 17:27 | Cardiology Consultation ---
Date of Consultation December 02, 2020 Assessment & Plan (1) Hypertrophic cardiomyopathy: pt suffered most likely a cardiac arrest with echocardiogram and ECG finding suggestive of apical variant of cardiomyopathy. Recommend dual chamber ICD with possible DFT testing. Discussed the procedure and the risks with the patient and his which include but not limited to heart attack, , arrhythmia, stroke, injury to the lungs, heart or blood vessels, bleeding and infection. They expressed an understanding and agreed to proceed. NPO after midnight for ICD in the am. (2) Syncope and collapse: as reported above; (3) Tachycardia: History of Present Illness Reason for Consultation: cardiac arrest Requesting Physician: Dr. Adhikari Attending Physician: Serafin Kolb MD History of Present Illness Pt presented to hospital 2 days ago after surviving what sounds like a cardiac arrest. Last thing the pt recalls is walking up the stairs feeling very SOB and gasping for air. his reports he was drooling at the mouth, eyes were rolling back, he was turning blue and lying on his side. He was not responding to her. She called 911. About maybe 2.5 minutes later the pt spoke saying to his why are you calling 911. Pt denies any chest pains or palpitations prior to the event. His work up included an echo that highly suggests apical variant of hypertrophic cardiomyopathy. his cath showed normal coronaries. Allergies Allergy/AdvReac Type Severity Reaction Status Date / Time No Known Allergies Allergy Verified 12/01/20 00:37 Home Medications Medication Instructions Recorded Confirmed Type Balance Of Nature Vitamin 1 tab PO DAILY 12/01/20 12/01/20 History Patient History Medical History Syncope and collapse Social History Smoking Status: Never smoker Second Hand Exposure: No; Do You Dip or Chew Tobacco: No; Tobacco Cessation Education Requested by Patient: No Hx Alcohol Use: Yes Hx Substance Use: No Communication Ability: Effective Mold Presser Required: No Beliefs That Will Affect Care: None marital status: Current Living Situation: Spouse How many Children do You have: 2 Other Information That Helps Us Care for You: No Feels Safe at Home: Yes Safety Concerns: Feels Safe At This Time Assistive Devices: None Review of Systems Review of Systems: Complete ROS was performed; only remarkable was that in the HPI. Physical Exam Physical Exam: aaox3, NAD NC/AT, EOMI Supple No JVD Nrl S1/S2, No murmur CTA b/l no w/r/r soft nt/nd no LE edema b/l skin intact no focal deficits Results & Data ([facility]) Vital Signs (Past 12 Hours) Vital Signs Temp Pulse Pulse Resp BP BP Pulse Ox 12/02/20 12:33 83 16 134/88 96 12/02/20 12:03 82 16 146/90 H 96 12/02/20 11:33 82 16 137/73 97 12/02/20 11:18 87 16 140/97 99 12/02/20 09:09 89 16 97 12/02/20 08:00 37.0 C 83 16 145/79 H 97 12/02/20 05:50 36.7 C 82 21 116/67 97 Laboratory Results Abnormal Lab Results 12/02/20 12/02/20 12/02/20 01:35 10:06 10:06 WBC 11.16 H RBC 4.55 L Hgb 13.0 L Hct 38.4 L MCV 84.4 MCH 28.6 MCHC 33.9 RDW Std Deviation 43.6 RDW Coeff of Cathryn 14.1 Plt Count 264 MPV 10.6 H Immature Gran % (Auto) 0.1 Neut % (Auto) 65.2 Lymph % (Auto) 24.7 [place] % (Auto) 9.5 Eos % (Auto) 0.3 Baso % (Auto) 0.2 Neut # (Auto) 7.28 H Lymph # (Auto) 2.76 [place] # (Auto) 1.06 H Eos # (Auto) 0.03 Baso # (Auto) 0.02 Immature Gran # (Auto) 0.01 Sodium 133 L Potassium 3.9 Chloride 103 Carbon Dioxide 23 Anion Gap 7.0 BUN 24 H Creatinine 1.03 Est Cr Clr Drug Dosing 119.5 Est GFR ( Amer) 98.4 Est GFR (Non-Af Amer) 84.9 BUN/Creatinine Ratio 23.3 H Glucose 100 H Calcium 8.6 Nasal Screen MRSA (PCR) Negative Diagnostic Findings Echocardiogram; EF preserved LVH Mild MR Medications Administered Current Inpatient Medications Acetaminophen (Acetaminophen 325 Mg Tab) 650 mg PO Q4H PRN PRN Reason: Pain or Fever Stop: 12/31/20 05:31 Aspirin (Aspirin 81 Mg Chew) 81 mg PO DAILY [facility] Stop: 12/31/20 14:29 Last Admin: 12/02/20 11:54 Dose: 81 mg Documented by: Enoxaparin Sodium (Enoxaparin Inj 40 Mg/0.4 Ml Syr) 40 mg SQ Q24H [facility] Stop: 12/31/20 08:59 Last Admin: 12/02/20 12:34 Dose: 40 mg Documented by: Metoprolol Tartrate (Metoprolol Tartrate 25 Mg Tab) 25 mg PO BID [facility] Stop: 01/01/21 10:29 Last Admin: 12/02/20 11:54 Dose: 25 mg Documented by: Nitroglycerin (Nitroglycerin Sl 0.4 Mg/Tab Tab) 0.4 mg SL UD PRN PRN Reason: Chest Pain Stop: 12/31/20 05:31 ECG Additional Comments: SR with deep inverted T waves suggestive of apical HCM; prolonged QTc
--- NOTE | 2020-12-02 18:58 | Hospitalist Progress Note ---
Date of Service December 02, 2020 Assessment & Plan (1) Hypertrophic cardiomyopathy: (2) Syncope and collapse: Plan: s/p Cardiac cath: widely patent coronary arteries started on Metoprolol and ASA for ICD placement tomorrow monitor closely plan of care discussed with patient in detail and at length all questions answered he is understanding, agreeable, comfortable with the plan of care Admission and Anticipated Discharge Date Admission Date: December 01, 2020 Subjective ff up for hypertrophic cardiomyopathy, etc seen resting in bed, comfortable in good spirits states he feels better overall no chest pain, dyspnea, palpitations, dizziness no fever/chills no abdominal pain, nausea/vomiting no other symptoms Review of Systems Review of Systems: all noted and negative except for above Physical Exam Physical Exam: General- oriented x 3, not in distress, speaks in sentences with no effort or accessory muscle use Eyes- anicteric Neck- no JVD Lungs- clear breath sounds bilaterally, no rales/wheezes Heart- normal rate, regular rhythm; no murmurs Abdomen- normal bowel sounds, nondistended, soft, nontender Extremities- no pretibial edema, no calf tenderness Neuro- alert, oriented x 3; no gross focal neurologic deficits Skin- warm & dry Results & Data Results & Data ([facility]) Vital Signs (Past 12 Hours) Vital Signs Temp Pulse Resp BP Pulse Ox 12/02/20 16:33 79 16 115/89 97 12/02/20 15:33 36.5 C 88 16 125/92 96 12/02/20 14:33 88 16 136/98 97 12/02/20 13:33 84 16 132/75 96 12/02/20 12:33 83 16 134/88 96 12/02/20 12:03 82 16 146/90 H 96 12/02/20 11:33 82 16 137/73 97 12/02/20 11:18 87 16 140/97 99 12/02/20 09:09 89 16 97 12/02/20 08:00 37.0 C 83 16 145/79 H 97 all noted and reviewed including below
[2020-12-03] MEDS ORDERED: VANCOMYCIN HCL 1000MG/20ML VIAL ONE (07:10)
[2020-12-03] MEDS ORDERED: LIDOCAINE 1% LOCAL 20 ML VIAL ONE (07:10)
[2020-12-03] MEDS ORDERED: WATER, STERILE FOR INJ 10 ML VIAL ONE (07:10)
[2020-12-03] MEDS ORDERED: BUPIVACAINE 0.25% 30 ML VIAL ONE (07:10)
--- NOTE | 2020-12-03 07:53 | History & Physical Bridge Note ---
Date of Service December 03, 2020 History & Physical Bridge Note I have examined the patient, reviewed the History & Physical and in the interval since the performance of the History & Physical I have noted the following changes of clinical significance: pt survived cardiac arrest and echo suggests apical variant of cardiomyopathy. Pt for an ICD prior to discharge. Re-dicussed the procedure and potential risks and consents signed.
--- NOTE | 2020-12-03 07:54 | Pre Anesthesia Assessment ---
Date of Service December 03, 2020 Pre Sedation Assessment Vital Signs Temp Pulse Pulse Resp BP BP Pulse Ox 12/03/20 05:41 37.1 C 75 18 138/81 96 12/03/20 00:49 72 12/02/20 22:50 36.5 C 72 21 121/71 97 12/02/20 20:00 37.2 C 80 16 140/80 97 12/02/20 16:33 79 16 115/89 97 12/02/20 15:33 36.5 C 88 16 125/92 96 12/02/20 14:33 88 16 136/98 97 12/02/20 13:33 84 16 132/75 96 12/02/20 12:33 83 16 134/88 96 12/02/20 12:03 82 16 146/90 H 96 12/02/20 11:33 82 16 137/73 97 12/02/20 11:18 87 16 140/97 99 12/02/20 09:09 89 16 97 12/02/20 08:00 37.0 C 83 16 145/79 H 97 Cardiovascular RRR, no murmur, no edema Respiratory normal respiratory effort, lungs clear to auscultation Pre-Sedation Airway Assessment Smoking Status: Never smoker Hx Sleep Apnea: No Short, Thick Neck: No Thyromental Distance: > or= 3.5 Finger Breadths Oral Cavity: + WNL Mallampati Class: III ASA: ASA2 NPO Status Date of Last Intake of Fluids: 12/02/20 Time of Last Intake of Fluids: 20:00 Date of Last Intake of Solid Food: 12/02/20 Time of Last Intake of Solid Foods: 20:00 Procedure Planning Contraindications for Sedation: none Current Medications Reviewed: Yes Notes The planned sedation has been discussed with the patient. Informed Consent was obtained. I have identified the patient, determined the appropriateness of sedation and have assessed the patient immediately prior to the procedure. All medicine(s) and interventions are by my order.
[2020-12-03] MEDS ORDERED: fentaNYL citrate 100 MCG/2 ML VIAL ONE ×2 (07:59→08:38)
[2020-12-03] MEDS ORDERED: MIDAZOLAM HCL 5 MG/ML 1 ML VIAL ONE ×2 (07:59→08:38)
[2020-12-03] MEDS ORDERED: NITROGLYCERIN/D5W 100MCG/ML 20ML SYR ONE (08:39)
[2020-12-03] MEDS ORDERED: oxyCODONE/ACETAMINOPHEN 5mg/325mg TAB PO PRN (09:49)
--- NOTE | 2020-12-03 09:52 | Post Anesthesia Assessment ---
Date of Service December 03, 2020 Post Sedation Assessment Vital Signs Temp Pulse Pulse Resp BP BP Pulse Ox 12/03/20 08:00 36.7 C 16 97 12/03/20 07:55 81 18 157/92 H 93 12/03/20 05:41 37.1 C 75 18 138/81 96 12/03/20 00:49 72 12/02/20 22:50 36.5 C 72 21 121/71 97 12/02/20 20:00 37.2 C 80 16 140/80 97 12/02/20 16:33 79 16 115/89 97 12/02/20 15:33 36.5 C 88 16 125/92 96 12/02/20 14:33 88 16 136/98 97 12/02/20 13:33 84 16 132/75 96 12/02/20 12:33 83 16 134/88 96 12/02/20 12:03 82 16 146/90 H 96 12/02/20 11:33 82 16 137/73 97 12/02/20 11:18 87 16 140/97 99 Recovery Score Activity: Moves 4 extremities Respiration: Deep Breath/Cough Circulation: +/-20% PreAnes Value Consciousness: Fully Awake Oxygen Saturation: > 92% On Room Air Discharge Sedation Level of Care: Fast Track Phase II Post Sedation Plan On clinical assessment, the patient appears to have tolerated the sedation with out complications. Patient is recovering as anticipated. Patient will continue to be monitored by nursing and may be discharged when sedation discharge criteria are met per below protocol. Upon Completions of procedure up to 15 minutes continue every 5 minute vital signs and the P.A.R. score; then discharge to a Phase I or Fast Track to Phase II per the following guidelines: * Discharge Patient to appropriate Phase II area if PAR is 8 or greater or return to pre- procedure baseline. The post - procedure orders will be as directed. * If PAR score is less than 8 or not return to pre-procedure baseline then patient will follow Phase I monitoring till PAR is reached for Phase II. The Phase I may be done in procedure room or may call to secure a Phase I area. * If naloxone or flumazenil are used for reversal, hold in Phase I for continued monitoring from when last reversal dose was given for a minimum of 60 minutes or longer pending the nurse and/or physician discretion of patient condition before discharge to Phase II. Please call the Sedation Physician to re-evaluate and complete post-note for discharge to Phase II area. Do NOT discharge from procedure sedation or Phase 1 until post- sedation evaluation note is complete by procedure /sedation MD Sedation Discharge Instructions to be given to the patient at discharge to home.
--- NOTE | 2020-12-03 09:53 | Operative Report ---
Post Operative Report Pre & Post Diagnosis Cardiac arrest, Apical variant of hypertrophic cardiomyopathy, SB Operation Date: 12/02/20 09:30 <No data on this case meets the specified criteria> Operation Date: 12/03/20 08:00 <No data on this case meets the specified criteria> I identified the patient and participated in the time-out.: Yes Procedure Operation Date: 12/02/20 09:30 Actual Procedures p Cath, Left with Cors and Vent - Reilly Adhikari DO s Cineradiography w/Routine Exam - Reilly Adhikari DO Operation Date: 12/03/20 08:00 Actual Procedures p ICD Insertion Single or Dual - DO jose roberto Flores Venogram, Unilateral - Lorenza Reyes DO Surgeon Lorenza Reyes, Terry Cloth Cutter Hand none Estimated Blood Loss 40 Findings Consistent with Post-Op Diagnosis see official report Specimens none Description of Procedure see official report I attest to the content of the Intraoperative Record and any orders documented therein. Any exceptions are noted below.
[2020-12-03] MEDS: ENOXAPARIN INJ 40 MG/0.4 ML SYR SQ SCH (10:09)
--- NOTE | 2020-12-03 10:18 | Communication Note ---
Date of Service: December 03, 2020 I saw the patient as he was just done with his procedure. He had an ICD implanted this morning. Thank you to Dr. Reyes. He should return home on his current medications including the metoprolol 25 mg twice daily. He has had a follow-up arranged with our device clinic. He will also have a follow-up with our cardiology clinic as an outpatient in about 2 weeks.
[2020-12-03] MEDS: METOPROLOL TARTRATE 25 MG TAB PO SCH (11:11)
[2020-12-03] MEDS: ASPIRIN 81 MG CHEW PO SCH (11:14)
--- NOTE | 2020-12-03 12:00 | Electrocardiogram Report ---
Test Reason : Blood Pressure : / mmHG Vent. Rate : 075 BPM Atrial Rate : 075 BPM P-R Int : 206 ms QRS Dur : 088 ms QT Int : 400 ms P-R-T Axes : 058 005 181 degrees QTc Int : 447 ms Normal sinus rhythm Possible Left atrial enlargement T wave abnormality, consider inferolateral ischemia Prolonged QT Abnormal ECG When compared with ECG of 01-DEC-2020 09:38, (unconfirmed) No significant change was found Confirmed by Kaleb Ward ([id number]) on 12/03/2020 12:00:31 PM Referred By: REFERRED SELF Confirmed By:Kaleb Ward
--- NOTE | 2020-12-03 12:56 | XRay Report ---
XR chest 1V portable CLINICAL HISTORY: s/p ICD COMPARISON STUDY: Chest radiograph and chest CT December 01, 2020. FINDINGS: There is no pneumothorax following placement of a dual-lead left pacer/AICD. Lead tips proj ect over the right atrial appendage and right ventricle. Cardiomegaly is noted. Pulmonary edema has r esolved. IMPRESSION: 1. No pneumothorax following placement of a dual-lead left subclavian pacer/AICD. 2. Cardiomegaly. Resolution of pulmonary edema. ACT 112: Negative or not required by law. Electronically signed by: Kushal Archuleta M.D. 12/03/2020 12:55 PM
--- NOTE | 2020-12-03 20:05 | Hospitalist Progress Note ---
Date of Service December 03, 2020 delayed entry date of service noted above Assessment & Plan (1) Hypertrophic cardiomyopathy: (2) Syncope and collapse: Plan: 12/03 s/p Cardiac cath: widely patent coronary arteries started on Metoprolol and ASA 12/03 s/p dual-lead left subclavian pacer/AICD placement by Dr. Galeano CXR no pneumothorax -- feeling much better -- pacemaker check next week per [facility]iology [facility] continue Metoprolol 25mg BID per Dr. Adhikari (Possible) Acute pulmonary edema secondary to hypertrophic cardiomyopathy -- given 1 dose of Lasix -- resolved plan of care discussed with patient and his in detail and at length all questions answered they are understanding, agreeable, comfortable with the plan of care Admission and Anticipated Discharge Date Admission Date: December 01, 2020 Subjective ff up for HOCM, etc seen resting in bed, sitting up states he feels much better overall no chest pain, dyspnea, palpitations has mild lightheadedness upon standing up initially minimal soreness on the ICD site no other symptoms states he is ready and would like to be discharged Review of Systems Review of Systems: all noted and negative except for above Physical Exam Physical Exam: General- oriented x 3, not in distress, speaks in sentences with no effort or accessory muscle use Eyes- anicteric Neck- no JVD Lungs- clear breath sounds bilaterally, no rales/wheezes Heart- normal rate, regular rhythm; no murmurs ICD site left chest wall- minimal erythema, no hematoma/tenderness Abdomen- normal bowel sounds, nondistended, soft, nontender Extremities- no pretibial edema, no calf tenderness Neuro- alert, oriented x 3; no gross focal neurologic deficits Skin- warm & dry Results & Data Results & Data ([facility]) Vital Signs (Past 12 Hours) Vital Signs Temp Pulse Resp BP Pulse Ox 12/03/20 13:56 36.7 C 71 16 139/87 96 12/03/20 11:04 71 16 139/87 96 12/03/20 10:34 74 16 144/91 H 98 12/03/20 10:19 79 16 143/93 H 98 12/03/20 10:10 78 17 136/85 96 12/03/20 10:04 75 16 136/85 96 12/03/20 09:55 80 16 145/82 H 98 12/03/20 09:49 76 16 145/82 H 98 all noted and reviewed including below
--- NOTE | 2020-12-04 12:09 | Electrocardiogram Report ---
Test Reason : Blood Pressure : / mmHG Vent. Rate : 073 BPM Atrial Rate : 073 BPM P-R Int : 210 ms QRS Dur : 090 ms QT Int : 400 ms P-R-T Axes : 057 007 176 degrees QTc Int : 441 ms Sinus rhythm with 1st degree A-V block Right atrial enlargement T wave abnormality, consider inferolateral ischemia Prolonged QT Abnormal ECG When compared with ECG of 02-DEC-2020 05:37, (unconfirmed) No significant change was found Confirmed by Kaleb Ward ([id number]) on 12/04/2020 12:08:55 PM Referred By: REFERRED SELF Confirmed By:Kaleb Ward
[2020-12-04 12:57] LABS: Babesia microti DNA Not Detected (Not Detected)
--- NOTE | 2020-12-04 13:24 | Electrocardiogram Report ---
Test Reason : Blood Pressure : / mmHG Vent. Rate : 065 BPM Atrial Rate : 065 BPM P-R Int : 200 ms QRS Dur : 090 ms QT Int : 474 ms P-R-T Axes : 057 004 187 degrees QTc Int : 492 ms Normal sinus rhythm Biatrial enlargement Prolonged QT Abnormal ECG When compared with ECG of 03-DEC-2020 05:46, (unconfirmed) No significant change Confirmed by Kaleb Ward ([id number]) on 12/04/2020 1:23:58 PM Referred By: REFERRED SELF Confirmed By:Kaleb Ward
--- NOTE | 2020-12-04 16:23 | Discharge Summary ---
Date of Service December 04, 2020 Admission HPI Per Admitting Provider CHIEF COMPLAINT: Syncope. HISTORY OF PRESENT ILLNESS: This is a 50-year-old male with no significant past medical history presents with syncope The patient says since last couple of days, whenever he is trying to walk, he is getting short of breath. Tonight he went for a alliance party and had a couple of drinks, was doing okay and then came home and trying to go to bed, he was not feeling good and feeling short of breath with sweating. He tried to climb the steps. [place] to the steps, felt very short of breath, somehow managed to climb up the steps and then he passed out. His saw his eyes were rolling out and he became very pale. No seizure activity, no biting of the tongue, no incontinence during the episode and the next thing he remembered was when the EMS came and there was no confusion once he woke up. He noticed some petechial rash on his face, but no rash anywhere else. The patient denies any food allergy as he just ate regular stuff. Denies any fevers, also had some mild cough, no chest pain, no headache, no blurred visions, no earache, no runny nose, no sore throat. No nausea, no abdominal pain, normal bowel and bladder movements. No blood in stools or black stools. No swelling in the legs. Admission Exam (Per Admitting) Constitutional GENERAL: The patient is of moderate build, not in acute distress. VITAL SIGNS: Temperature 36.6, pulse 107, respiratory rate 19, blood pressure 150/80, oxygen 96% on room air. HEENT: Pupils equal, round and reactive to light. Oral mucosa moist. NECK: No JVD. No neck masses seen. CARDIOVASCULAR: S1 and S2 heard. Regular rate and rhythm. No murmur, no gallop. RESPIRATORY: Normal AP diameter. No accessory muscle use. No wheezing, no crackles. ABDOMEN: Soft, bowel sounds present, nontender, no distention. CENTRAL NERVOUS SYSTEM: Cranial nerves II-XII grossly intact, nonfocal. EXTREMITIES: No edema, no erythema. SKIN: Petechial rash on the face seen. Discharge Data Consultations 12/01/20 04:01 ED Decision to Admit Stat 12/01/20 08:00 Consult Cardiology Routine 12/02/20 11:39 Consult Cardiac Electrophysiology Routine Procedures Performed Operation Date: 12/02/20 09:30 Actual Procedures p Cath, Left with Cors and Vent - Reilly Adhikari, DO s Cineradiography w/Routine Exam - Reilly Adhikari DO Operation Date: 12/03/20 08:00 Actual Procedures p ICD Insertion Single or Dual - Lorenza Reyes DO s Venogram, Unilateral - Lorenza Reyes DO CHEST CT CT ANGIOGRAPHY OF THE CHEST, PULMONARY EMBOLUS PROTOCOL CLINICAL HISTORY: Cough. Evaluate for pulmonary embolus. COMPARISON STUDY: Chest radiograph December 01, 2020. TECHNIQUE: Following IV administration of 118 mL of Optiray, helical axial image s of the chest were obtained utilizing the pulmonary embolus protocol. Maximal intensity projections and sagittal and coronal reformats were viewed on an independent 3D workstation. IV contrast was administered without complication. Automated exposure control was utilized for the study. A dose lowering technique was utilized adhering to the principles of ALARA. FINDINGS: No pulmonary emboli are identified. There is no thoracic aortic dissection. Mild cardiomegaly is noted. There is possible left ventricular hypertrophy. There is no pericardial effusion. There are trace bilateral pleural effusions. Interlobular septal thickening is noted. There are groundglass opacities which likely reflect alveolar edema. Bronchial wall thickening is present. There is no pneumothorax. Visual portions of the upper abdomen are unremarkable. IMPRESSION: 1. No pulmonary emboli identified. 2. Interstitial and alveolar pulmonary edema with trace bilateral pleural effusions. Mild cardiomegaly and possible left ventricular hypertrophy. Cardiology consultation is recommended. ACT 112: Negative or not required by law. Hospital Course (1) Hypertrophic cardiomyopathy: (2) Syncope and collapse: 12/03 s/p Cardiac cath: widely patent coronary arteries started on Metoprolol and ASA 12/03 s/p dual-lead left subclavian pacer/AICD placement by Dr. Galeano CXR no pneumothorax -- feeling much better -- pacemaker check next week per Cardiology Clinic continue Metoprolol 25mg BID per Dr. Adhikari (Possible) Acute pulmonary edema secondary to hypertrophic cardiomyopathy -- given 1 dose of Lasix -- resolved Elevated D dimer -- 4k on admission -- CT chest: no PE Venous Doppler Study: negative ff up with PCP in 1 week ff up with [facility] in 1 week plan of care discussed with patient and his in detail and at length all questions answered they are understanding, agreeable, comfortable with the plan of care
--- NOTE | 2020-12-11 20:58 | Operative Report (OR) ---
DATE OF PROCEDURE: 12/03/2020. PREOPERATIVE DIAGNOSES: Cardiac arrest and apical variant of hypertrophic cardiomyopathy. POSTOPERATIVE DIAGNOSES: Cardiac arrest and apical variant of hypertrophic cardiomyopathy. PROCEDURE: Dual chamber rate responsive implantable cardiac defibrillator under fluoroscopic guidance along with peripheral venogram. SURGEON: Lorenza Reyes DO. TELEVISION REPAIR TEACHER: None. ANESTHESIA: Monitored conscious sedation administered under my supervision by Anabel Sharif. Start time 8:09, end time 9:45. Total of 7 mg of Versed and 175 mcg of fentanyl. INTRAVENOUS FLUIDS: 200 mL. ANTIBIOTICS: 2 grams of Ancef. BLOOD LOSS: 40 mL. INTRAVENOUS CONTRAST: 30 mL. URINE OUTPUT: Not applicable. SPECIMENS: None. FINDINGS: See below. DRAINS: None. INDICATIONS: This is a 50-year-old gentleman who has no significant past medical history, was admitted to [facility] after suffering what sounds like a cardiac arrest. His echocardiogram revealed apical variant of hypertrophic cardiomyopathy and his EKG showed a prolonged QTc, so he was recommended an ICD prior to discharge. CONSENT: Consent was obtained prior to the patient going into the electrophysiology lab. The patient was informed of the risks, benefits, and alternatives to the procedure. Risks include but not limited to sudden cardiac , cardiac arrhythmias, cerebrovascular accident, myocardial infarction, injury to the blood vessels, chamber of the heart and lung, bleeding and infection. The patient understood these risks and agreed to the procedure as planned. Informed consent was obtained. DESCRIPTION OF PROCEDURE: The patient was brought into the electrophysiology lab in fasting state. He was connected to continuous cardiac monitoring. A time-out was performed to ensure patient identity and procedure correctly. He was prepped and draped over the left infraclavicular space in normal surgical standard fashion. Monitored conscious sedation was given throughout the procedure for patient's comfort level. 10 mL of 1% lidocaine-bupivacaine mixture were given in the left deltopectoral groove. An incision was made in the left deltopectoral groove. Blunt dissection was performed down to the pectoralis muscle. Then, a peripheral venogram was performed to identify the axillary vein. Venous axillary access was attempted. I did have some difficulty and then it looked like there was a venous spasm. I gave 200 mcg of nitroglycerin and repeated another peripheral venogram. It still did not open up the vessel that much, so I then performed blunt dissection down to the cephalic vein. Cephalic vein was isolated using 0 silk ties and nicked with an 11 blade and a Glidewire was inserted without any resistance. Then, a 7-Cuban sheath was inserted over the Glidewire. The dilator removed and a second guidewire was inserted through the sheath to allow for retained venous access. Sheath was removed and the 9.5-Cuban sheath was inserted over the Glidewire. The Glidewire and dilator were removed and the right ventricular defibrillator lead was advanced into right ventricle, positioned in the right ventricular apex under fluoroscopic guidance. There was adequate pacing and sensing thresholds and no diaphragmatic stimulation with high output pacing. The 9.5-Cuban sheath was peeled away and the lead was fixated to pectoralis muscle using 0 silk suture. Then, the 7-Cuban sheath was advanced over the retained guidewire, the guidewire and dilator removed. The right atrial lead was advanced into right atrium and positioned in right atrial appendage under fluoroscopic guidance. There was adequate pacing and sensing thresholds and no diaphragmatic stimulation with high output pacing. The 7-Cuban sheath was peeled away and the lead was fixated to pectoralis muscle using 0 silk suture. A pursestring using a 2-[address] needle was placed around the venous puncture site to prevent any further backbleeding. A defibrillator pocket was then created using blunt dissection over the pectoralis muscle within the pectoralis fascia. The pocket was flushed with copious amounts of vancomycin and saline wash and inspected for hemostasis. The leads were then attached to the generator, making sure the pins were in appropriate position, passed set screws and set screws were all tightened. The generator was then placed in the pocket, making sure the leads were lying flat beneath the device. The incision was closed in a 3-layer fashion with 2-0 Vicryl interrupted suture followed by 3-0 Vicryl interrupted suture, followed by 4-0 Monocryl running stitch and Dermabond was applied followed by Telfa and Tegaderm dressing. EQUIPMENT: 1. Pulse generator is a Medtronic Evera MRI XT DR [place] [id number], serial number [id number]. 2. Right atrial lead, Medtronic 5076-52 cm, serial number [id number]. 3. Right ventricular lead, 6935M-62 cm, serial number [id number]. INTRAOPERATIVE TESTIN. Right atrial lead, P waves 5.1 millivolts, impedance 509 ohms, threshold 0.4 volts at 0.5 milliseconds. 2. Right ventricular lead, R waves 14.8 millivolts, impedance 474 ohms, threshold 0.7 volts at 0.5 milliseconds. FINAL MEASUREMENTS THROUGH THE DEVICE. 1. Right atrial lead, P waves 1.8 millivolts, impedance 418 ohms, threshold 0.5 volts at 0.4 milliseconds. 2. Right ventricular 18.5, R waves 18.5 millivolts, impedance 418 ohms, threshold 0.5 volts at 0.4 milliseconds. FINAL PARAMETERS: MVP 60/140, right atrial and right ventricular amplitude 3.5 volts, pulse width 0.4 milliseconds, sensitivity 0.3 millivolts. VT monitor zone 150 beats per minute for 30 detection intervals, VT zone 171 beats per minute for 24 detection intervals and a VF zone at 200 beats per minute for 24 detection intervals. IMPRESSION: Successful dual chamber rate responsive implantable cardiac defibrillator implantation along with a peripheral venogram under fluoroscopic guidance secondary to cardiac arrest, apical hypertrophic cardiomyopathy. PLAN: Monitor the patient postprocedure, chest x-ray, EKG and recheck the device in a couple of hours. He is not to lift the left elbow or left shoulder for 1 month. He cannot lift more than 10 pounds with left arm for 2 weeks. He is to keep the dressing on and dry until his wound check. No showers, sponge bath only and have a wound check in our [facility] office in 1 week's time. Job ID: [id number] [facility]
== END 2020-12-03 15:07 | disposition home or self-care (01) | DRG 224 ==
LOC: ED 23:46 → EDINP 12-01 04:45 → 1E 12-02 01:37
PROC: EPB.ICD (2020-12-03 08:00)

== ENCOUNTER 2020-12-13 22:58 | Inpatient (IN) ==
[2020-12-13] MEDS ORDERED: FUROSEMIDE 40 MG/4 ML VIAL IV ONE (23:09)
--- NOTE | 2020-12-13 23:23 | XRay Report ---
XR chest 1V portable CLINICAL HISTORY: Pain/EKG changes. Stat verbal order from Dr. Morley TECHNIQUE: Single frontal radiograph of the chest was obtained. Comparison: Comparison is made to chest one view 12/03/2020 FINDINGS: Pacemaker defibrillator is noted. Cardiomegaly is noted. Cephalization and indistinctness of the vasc ulature is seen with Ani B lines. No evidence of pleural effusion or pneumothorax. IMPRESSION: Moderate pulmonary edema. ACT 112: Negative or not required by law. Electronically signed by: Gonzalo Hunter M.D. 12/13/2020 11:21 PM
[2020-12-13 23:28] LABS: Basophils # (auto) 0.04 K/uL (0-0.2); Basophils % (auto) 0.3 %; Eosinophils # (auto) 0.18 K/uL (0-0.5); Eosinophils % (auto) 1.3 %; Hematocrit (blood only) 38.6 % (42-52); Hemoglobin 12.8 g/dL (14.0-18.0); Immature Granulocytes # (auto) 0.02 K/uL (0.00-0.02); Immature Granulocytes % (auto) 0.1 %; Lymphocytes # (auto) 3.92 K/uL (1.2-3.4); Lymphocytes % (auto) 29.1 %; Mean Corpuscular Hemoglobin 28.3 pg (25-34); Mean Corpuscular Hgb Conc 33.2 g/dL (32-36); Mean Corpuscular Volume 85.4 fL (80-100); Mean Platelet Volume 10.4 fL (7.4-10.4); Monocytes # (auto) 0.88 K/uL (0.11-0.59); Monocytes % (auto) 6.5 %; Neutrophils # (auto) 8.45 K/uL (1.4-6.5); Neutrophils % (auto) 62.7 %; Platelet Count 284 K/uL (130-400); RDW Coefficient of Variation 13.6 % (11.5-14.5); RDW Standard Deviation 42.5 fL (36.4-46.3); Red Blood Count 4.52 M/uL (4.7-6.1); White Blood Count 13.49 K/uL (4.8-10.8)
[2020-12-13 23:45] LABS: Albumin Level 3.6 gm/dl (3.4-5.0); BUN Creatinine Ratio 16.2 (10-20); Est GFR (African American) 70.3 ml/min; Est GFR (Non-African American) 60.7 ml/min; Potassium 4.1 mmol/L (3.5-5.1)
[2020-12-13 23:49] LABS: Appearance Urine Clear (Clear); Bacteria Urine Automated Negative (Negative); Bilirubin Urine Negative (Negative); Blood Urine Negative (Negative); Color Urine Yellow; Glucose Urine UA Negative (Negative); Ketones Urine Negative (Negative); Leukocyte Esterase Urine Negative (Negative); Nitrite Urine Negative (Negative); Protein Urine 2+ (Negative); RBC Urine Automated 0-4 /hpf (0-4); Urobilinogen Urine Negative (Negative)
[2020-12-13 23:50] LABS: Bilirubin,Total 0.4 mg/dl (0.2-1); Globulin 3.7 gm/dl (2.5-4.0); Total Protein 7.3 gm/dl (6.4-8.2); Troponin I 0.016 ng/ml (0-0.045)
[2020-12-14] MEDS ORDERED: POLYETHYLENE (MIRALAX) 17 GM PACK PO PRN (05:05)
[2020-12-14] MEDS ORDERED: ONDANSETRON INJ 2 MG/ML 2 ML VIAL IV PRN (05:05)
[2020-12-14] MEDS ORDERED: ACETAMINOPHEN 325 MG TAB PO PRN (05:05)
[2020-12-14] MEDS ORDERED: NITROGLYCERIN SL 0.4 MG/TAB TAB SL PRN (05:05)
[2020-12-14 06:02] LABS: Basophils # (auto) 0.02 K/uL (0-0.2); Basophils % (auto) 0.2 %; Eosinophils # (auto) 0.02 K/uL (0-0.5); Eosinophils % (auto) 0.2 %; Hematocrit (blood only) 37.3 % (42-52); Hemoglobin 12.5 g/dL (14.0-18.0); Immature Granulocytes # (auto) 0.02 K/uL (0.00-0.02); Immature Granulocytes % (auto) 0.2 %; Lymphocytes # (auto) 1.77 K/uL (1.2-3.4); Lymphocytes % (auto) 14.3 %; Mean Corpuscular Hemoglobin 28.3 pg (25-34); Mean Corpuscular Hgb Conc 33.5 g/dL (32-36); Mean Corpuscular Volume 84.6 fL (80-100); Mean Platelet Volume 10.3 fL (7.4-10.4); Monocytes # (auto) 0.66 K/uL (0.11-0.59); Monocytes % (auto) 5.3 %; Neutrophils # (auto) 9.93 K/uL (1.4-6.5); Neutrophils % (auto) 79.8 %; Platelet Count 247 K/uL (130-400); RDW Coefficient of Variation 13.6 % (11.5-14.5); RDW Standard Deviation 41.8 fL (36.4-46.3); Red Blood Count 4.41 M/uL (4.7-6.1); White Blood Count 12.42 K/uL (4.8-10.8)
[2020-12-14 06:47] LABS: BUN Creatinine Ratio 22.2 (10-20); Calcium 9.3 mg/dl (8.5-10.1); Creatinine Clr Calc Pharmacy 134.5 ml/min; Est GFR (African American) 115.8 ml/min; Est GFR (Non-African American) 99.9 ml/min; Magnesium 2.2 mg/dl (1.8-2.4); Potassium 4.5 mmol/L (3.5-5.1); Troponin I 0.861 ng/ml (0-0.045)
[2020-12-14] MEDS: ENOXAPARIN INJ 40 MG/0.4 ML SYR SQ SCH (08:36)
[2020-12-14] MEDS ORDERED: METOPROLOL TARTRATE 25 MG TAB PO SCH (09:00)
--- NOTE | 2020-12-14 10:30 | History and Physical Report ---
DATE OF ADMISSION: 12/14/2020. CHIEF COMPLAINT: Syncope and shortness of breath. HISTORY OF PRESENT ILLNESS: This is a 50-year-old male who presents with syncope and was recently diagnosed with hypertrophic cardiomyopathy, status post cardiac catheterization that showed clean coronaries and he was status post AICD. Last admission, he also developed acute pulmonary edema and received a dose of Lasix. Was discharged home on 12/04/2020, now comes back because of another episode of syncope. The patient says he was climbing steps today and he felt short of breath, then he came back, and after some time again he passed out. This time, he did not pass out that much long, but when EMS arrived his systolic blood pressure was in 60s. Even after the fluid bolus, the blood pressure did not come much up, but by the time he came to the ER he was feeling better, his blood pressure had improved to 120s, but then he developed cough and shortness of breath and chest x-ray showed pulmonary edema and he was placed on BiPAP and given a dose of Lasix. After that, he is feeling much better. Currently, he is saturating 96% on 2 liters, seems comfortable. He says during the process he also was sweating. There was no chest pain or palpitations. Denies any headache. No blurred visions, no earache, no runny nose, no sore throat, no cough, no nausea, no abdominal pain.. Normal bowel and bladder movements. No orthopnea. No swelling in the legs. He states he exercised for like 10 to 15 minutes before this today, but he was not doing any strenuous activity. ALLERGIES: No known drug allergies. PAST MEDICAL HISTORY: As mentioned above. PAST SURGICAL HISTORY: Status post AICD placement and colonoscopy and hand surgery. MEDICATIONS: Metoprolol 25 mg p.o. b.i.d. FAMILY HISTORY: Mother has hypertension, breast cancer, thyroid disorder; maternal grandfather had prostate cancer; paternal grandfather had prostate cancer and colon cancer; maternal grandmother had breast cancer. SOCIAL HISTORY: , no smoking. Alcohol occasional. No known drug use. REVIEW OF SYSTEMS: As per HPI. Rest of the review of systems is negative. PHYSICAL EXAMINATION: GENERAL: The patient is of moderate build, not in acute distress. VITAL SIGNS: Temperature 36.6, pulse 76, respiratory rate 20, blood pressure 116/82, oxygen 96% on 2 liters. HEENT: Extraocular muscles intact. NECK: No JVD, no neck masses. CARDIOVASCULAR: S1 and S2 heard. Regular rate and rhythm. No murmur, no gallop. RESPIRATORY: Normal AP diameter. No accessory muscle use. No wheezing, no crackles. ABDOMEN: Soft, bowel sounds present, nontender, no distention. CENTRAL NERVOUS SYSTEM: Cranial nerves II-XII grossly intact, nonfocal. EXTREMITIES: No edema, no erythema. LABORATORY DATA: WBC 13.4, hemoglobin 12.8, hematocrit 38.6, platelets 284. Sodium 134, potassium 4.1, chloride 100, bicarbonate 27, BUN 22, creatinine 1.3, serum glucose 154, calcium 9, total bilirubin 0.4, AST 23, ALT 31, alkaline phosphatase 73. Troponin I less than 0.016. Urinalysis, +2 protein. SARS-CoV-2 PCR negative. IMAGING DATA: Chest x-ray: Moderate pulmonary edema. EKG: Sinus rhythm with first-degree AV block at a rate of 83, bilateral enlargement, ST depression in lateral leads. ASSESSMENT AND PLAN: This is a 50-year-old male who presents with syncope. 1. Syncope and hypotension, that is improved now. The patient was recently diagnosed with hypertrophic cardiomyopathy, status post AICD placement. We will do the AICD interrogation. The patient also developed pulmonary edema after a fluid bolus for his blood pressure and he was given a dose of Lasix and required BiPAP, now he is feeling better and saturating fine on 2 liters, and is stable. The patient developed pulmonary edema last admission also and received a dose of Lasix. Will also follow serial cardiac enzymes.Has some ekg chnages. Closely monitor in tele floor. Will keep him n.p.o. and consult cardiology in the a.m. for further recommendations. 2. Deep venous thrombosis prophylaxis: Will place on Lovenox. DISPOSITION: Closely monitor in tele floor. Level 1 full code. Job ID: [id number] [facility]
[2020-12-14] MEDS ORDERED: SODIUM CHLORIDE 0.9% 500 ML IV SCH (11:00)
--- NOTE | 2020-12-14 11:10 | Electrocardiogram Report ---
Test Reason : Blood Pressure : / mmHG Vent. Rate : 083 BPM Atrial Rate : 083 BPM P-R Int : 212 ms QRS Dur : 096 ms QT Int : 448 ms P-R-T Axes : 065 020 192 degrees QTc Int : 526 ms Sinus rhythm with 1st degree A-V block Biatrial enlargement Marked ST abnormality, possible lateral subendocardial injury Prolonged QT Abnormal ECG When compared with ECG of 03-DEC-2020 12:48, ST now depressed in Lateral leads Inverted T waves have replaced nonspecific T wave abnormality in Anterior leads Confirmed by Danie Valencia ([id number]) on 12/14/2020 11:10:17 AM Referred By: REFERRED SELF Confirmed By:Magdiel Valencia
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
[2020-12-14] MEDS ORDERED: METOPROLOL TARTRATE 25 MG TAB PO ONE (14:51)
--- NOTE | 2020-12-14 14:58 | XRay Report ---
XR chest 2V PA/lateral HISTORY: Recent pacemaker placement. Shortness of breath. follow up pulmonary edema COMPARISON: Chest 12/13/2020. FINDINGS: No pneumothorax. Trace bilateral pleural effusions. The heart remains borderline enlarged. Diffuse interstitial thickening/edema has improved. No new focal lung consolidations to suggest pneum onia. Left-sided pacemaker/defibrillator remains unchanged in position. IMPRESSION: 1. Interval improvement in the mild interstitial pulmonary edema. 2. Trace bilateral pleural effusions. 3. No pneumothorax. ACT 112: Negative or not required by law. Electronically signed by: Greg Bob M.D. 12/14/2020 2:57 PM
--- NOTE | 2020-12-14 18:01 | Emergency Department Note ---
Impression & Plan Acute hypotension, Pulmonary edema, Near syncope [facility] Provider Note NAME: KIERA MORLEY AGE: 50 SEX: M ARRIVES VIA: Ambulance INFORMANT: Patient, ED PROVIDER(S): Chayito Morley DO CHIEF COMPLAINT: Near syncope PLAN: Disposition: Admit to the [facility] Condition: Good MEDICAL DECISION MAKING: This is a 50-year-old male patient with a recently implanted AICD and newly diagnosed hypertrophic cardiomyopathy who had an episode of near syncope tonight. He presents to the emergency department in hypotensive state. EMS administered a bolus of IV normal saline. The patient presents to the emergency department with flash pulmonary edema. Patient was given a dose of IV Lasix and placed on BiPAP. [facility] and [facility] will evaluate for further management. It seems that the patient had a hypotensive event at home with a hypertrophic cardiomyopathy and fluid bolus was put into flash pulmonary edema very quickly. The pacer/defibrillator will require interrogation to rule out dysrhythmia. Triage Nursing notes reviewed and agree with them. Additional history obtained from EMS Prior medical records reviewed Vital Signs: reviewed and remarkable for hypotension Differential diagnosis: Flash pulmonary edema; cardiac dysrhythmia; dehydration; STEMI; NSTEMI ER treatment provided: IV Lasix-40 mg BiPAP Diagnostics interpreted by me: ECG: Normal sinus rhythm at a rate of 83; there is a first-degree AV block with a prolonged QT at 526 ms. There is more pronounced ST segment depression in the lateral leads compared to an EKG from last week. This is concerning for increased ischemia. Cardiac Monitoring: Normal sinus rhythm at 84 Laboratory studies: See below Imaging studies: As per my interpretation Portable chest x-ray: Pulmonary edema HPI: 50/M arrives for evaluation of near syncope. The patient was recently diagnosed with hypertrophic cardiomyopathy and a previous syncopal event. The patient AICD placed last week. This evening, the patient was in his usual state of health. He had done a stationary bike for the first time since last week's event. The patient had walked up stairs when he began to feel extremely weak and lightheaded. He went down to his knees and had a near syncopal event. He had progressive extreme weakness. EMS was called. Upon their arrival, they found the patient extremely weak and hypotensive with blood pressures in the 60s. They initiated an IV bolus. Upon presentation to the emergency department, the patient's was normotensive complaining of shortness of breath. ROS: See above HPI for pertinent positives & negatives. A total of 10 systems reviewed and were otherwise negative. PAST MEDICAL HISTORY:Hypertrophic cardiomyopathy; recently implanted AICD PAST SURGICAL HISTORY:See Below FAMILY HISTORY:See Below SOCIAL HISTORY:Lives with his family HOME MEDICATIONS:See Below ALLERGIES:See Below VITALS:See Below PHYSICAL EXAMINATION: HEENT: Head - normocephalic and atraumatic. Pupils are equal, round, and reactive to light. Extraocular eye muscles are intact, and sclera are anicteric. Nose - moist nasal mucosa without discharge. Mouth - moist buccal mucosa. Oropharynx is nonerythematous and there is no tonsillar exudate or edema noted. Neck: Supple; no JVD or cervical lymphadenopathy Heart: Regular rate and rhythm. There is a normal S1 and S2 with no murmurs, clicks, or gallops appreciated. Lungs: Rales in all lung giraldo Abdomen: Soft, completely nontender, nondistended, with good bowel sounds. There are no palpable pulsatile masses or hepatosplenomegaly. There is no guarding, rigidity, or rebound noted. Extremities: No evidence of cyanosis, clubbing, or edema. There are easily palpable peripheral pulses. Skin: Pale, warm and diaphoretic with good turgor and no rashes. ED COURSE: Times/Reassessments: 1105: The patient was evaluated in room B1. An order was placed for continuous cardiac monitoring. The patient was in a normal sinus rhythm at a rate of 84. A twelve-lead EKG was obtained. Previous electronic medical records were reviewed. Laboratory studies were drawn as above. The patient was given 40 mg of IV Lasix. The patient was switched from nasal cannula to BiPAP. I discussed the case with the [facility] hospitalist. I discussed the case with the patient's who is now at the bedside. The patient's vital signs remained stable. His O2 saturation remained stable. His respiratory status improved. He was taken off the BiPAP and transition back to nasal cannula with normal oxygen saturations. I have personally spent greater than 60 minutes of critical care time in the direct management of this patient. This includes bedside care, interpretation of diagnostic studies, and testing, discussion with consultants, patient, and family members, and other required patient management activities. This 60 minutes is in excess of all separately billable procedures. 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 Beliefs That Will Affect Care: None marital status: Current Living Situation: Spouse How many Children do You have: 2 Feels Safe at Home: Yes Safety Concerns: Feels Safe At This Time Assistive Devices: None Allergies Allergies Allergy/AdvReac Type Severity Reaction Status Date / Time No Known Allergies Allergy Verified 12/13/20 23:30 Home Meds Home Medications Medication Instructions Recorded Confirmed Balance Of Nature Vitamin 1 tab PO DAILY 12/01/20 12/13/20 Previous Rx's Medication Instructions Recorded metoprolol tartrate 25 mg tablet 25 mg PO BID 30 Days #60 tab 12/03/20 Results & Data (ED) Vital Signs Vital Signs - 24 hr 12/13/20 23:06 12/13/20 23:14 12/13/20 23:25 Temperature 36.6 C Temperature Source Oral Pulse Rate 74 84 Pulse Rate [Apical] 82 Pulse Rate from SpO2 Sensor Respiratory Rate 24 22 24 Respiratory Effort / Characteristics Spontaneous Short of Breath Non-Labored Spontaneous Respiratory Depth Normal Normal Respiratory Pattern Regular Blood Pressure 122/69 Blood Pressure [Right Arm] 130/73 Blood Pressure Mean 86 Blood Pressure Mean [Right Arm] 92 Blood Pressure Position Lying Blood Pressure Position [Right Arm] Sitting Pulse Oximetry 98 98 99 Oxygen Delivery Method Nasal Cannula Nasal Cannula Oxygen Flow Rate 4 4 Fraction of Inspired Oxygen 30 Sepsis Recent Fever Within 48 Hours No Sepsis New/Unexplained Change in Mental Status N/A Sepsis Action Taken by Nursing No Action Required Oxygen Flow Rate - Titration 4 Pulse Oximetry Post Tiitration 98 12/13/20 23:40 12/13/20 23:45 12/14/20 00:00 Temperature Temperature Source Pulse Rate 88 86 88 Pulse Rate [Apical] Pulse Rate from SpO2 Sensor 91 H 86 90 Respiratory Rate 26 H 25 H 24 Respiratory Effort / Characteristics Respiratory Depth Respiratory Pattern Blood Pressure 125/66 127/66 123/72 Blood Pressure [Right Arm] Blood Pressure Mean 85 86 89 Blood Pressure Mean [Right Arm] Blood Pressure Position Blood Pressure Position [Right Arm] Pulse Oximetry 96 97 100 Oxygen Delivery Method BiPAP BiPAP BiPAP Oxygen Flow Rate Fraction of Inspired Oxygen 30 30 30 Sepsis Recent Fever Within 48 Hours Sepsis New/Unexplained Change in Mental Status Sepsis Action Taken by Nursing Oxygen Flow Rate - Titration Pulse Oximetry Post Tiitration 12/14/20 00:15 12/14/20 00:30 12/14/20 00:38 Temperature Temperature Source Pulse Rate 81 81 Pulse Rate [Apical] Pulse Rate from SpO2 Sensor 81 81 Respiratory Rate 21 23 Respiratory Effort / Characteristics Respiratory Depth Respiratory Pattern Blood Pressure 128/95 134/71 Blood Pressure [Right Arm] Blood Pressure Mean 106 92 Blood Pressure Mean [Right Arm] Blood Pressure Position Blood Pressure Position [Right Arm] Pulse Oximetry 100 100 99 Oxygen Delivery Method BiPAP BiPAP Nasal Cannula Oxygen Flow Rate 4 Fraction of Inspired Oxygen 30 30 Sepsis Recent Fever Within 48 Hours Sepsis New/Unexplained Change in Mental Status Sepsis Action Taken by Nursing Oxygen Flow Rate - Titration Pulse Oximetry Post Tiitration 12/14/20 00:45 12/14/20 00:52 12/14/20 01:00 Temperature Temperature Source Pulse Rate 88 87 Pulse Rate [Apical] Pulse Rate from SpO2 Sensor 89 87 Respiratory Rate 22 22 Respiratory Effort / Characteristics Respiratory Depth Respiratory Pattern Blood Pressure 122/65 138/75 Blood Pressure [Right Arm] Blood Pressure Mean 84 96 Blood Pressure Mean [Right Arm] Blood Pressure Position Blood Pressure Position [Right Arm] Pulse Oximetry 100 100 94 Oxygen Delivery Method Nasal Cannula Nasal Cannula Nasal Cannula Oxygen Flow Rate 4 4 3 Fraction of Inspired Oxygen Sepsis Recent Fever Within 48 Hours Sepsis New/Unexplained Change in Mental Status Sepsis Action Taken by Nursing Oxygen Flow Rate - Titration 3 Pulse Oximetry Post Tiitration 99 12/14/20 01:15 12/14/20 01:22 12/14/20 01:30 Temperature Temperature Source Pulse Rate 78 85 Pulse Rate [Apical] Pulse Rate from SpO2 Sensor 79 85 Respiratory Rate 20 20 Respiratory Effort / Characteristics Respiratory Depth Respiratory Pattern Blood Pressure 138/75 102/71 Blood Pressure [Right Arm] Blood Pressure Mean 96 81 Blood Pressure Mean [Right Arm] Blood Pressure Position Blood Pressure Position [Right Arm] Pulse Oximetry 100 100 98 Oxygen Delivery Method Nasal Cannula Nasal Cannula Nasal Cannula Oxygen Flow Rate 3 3 2 Fraction of Inspired Oxygen Sepsis Recent Fever Within 48 Hours Sepsis New/Unexplained Change in Mental Status Sepsis Action Taken by Nursing Oxygen Flow Rate - Titration 2 Pulse Oximetry Post Tiitration 99 12/14/20 01:45 12/14/20 02:00 12/14/20 02:15 Temperature Temperature Source Pulse Rate 81 76 76 Pulse Rate [Apical] Pulse Rate from SpO2 Sensor 81 77 75 Respiratory Rate 24 20 19 Respiratory Effort / Characteristics Respiratory Depth Respiratory Pattern Blood Pressure 122/67 116/82 109/63 Blood Pressure [Right Arm] Blood Pressure Mean 85 93 78 Blood Pressure Mean [Right Arm] Blood Pressure Position Blood Pressure Position [Right Arm] Pulse Oximetry 98 96 96 Oxygen Delivery Method Nasal Cannula Nasal Cannula Nasal Cannula Oxygen Flow Rate 2 2 2 Fraction of Inspired Oxygen Sepsis Recent Fever Within 48 Hours Sepsis New/Unexplained Change in Mental Status Sepsis Action Taken by Nursing Oxygen Flow Rate - Titration Pulse Oximetry Post Tiitration 12/14/20 02:30 Temperature Temperature Source Pulse Rate 78 Pulse Rate [Apical] Pulse Rate from SpO2 Sensor 76 Respiratory Rate 21 Respiratory Effort / Characteristics Respiratory Depth Respiratory Pattern Blood Pressure 113/68 Blood Pressure [Right Arm] Blood Pressure Mean 83 Blood Pressure Mean [Right Arm] Blood Pressure Position Blood Pressure Position [Right Arm] Pulse Oximetry 96 Oxygen Delivery Method Nasal Cannula Oxygen Flow Rate 2 Fraction of Inspired Oxygen Sepsis Recent Fever Within 48 Hours Sepsis New/Unexplained Change in Mental Status Sepsis Action Taken by Nursing Oxygen Flow Rate - Titration Pulse Oximetry Post Tiitration Laboratory Data Result diagrams: 12/14/20 05:37 12/14/20 05:37 Lab Results 12/13/20 12/13/20 12/13/20 Range/Units 23:18 23:18 23:18 WBC 13.49 H (4.8-10.8) K/uL RBC 4.52 L (4.7-6.1) M/uL Hgb 12.8 L (14.0-18.0) g/dL Hct 38.6 L (42-52) % MCV 85.4 (80-100) fL MCH 28.3 (25-34) pg MCHC 33.2 (32-36) g/dL RDW Std Deviation 42.5 (36.4-46.3) fL RDW Coeff of Cathryn 13.6 (11.5-14.5) % Plt Count 284 (130-400) K/uL MPV 10.4 (7.4-10.4) fL Immature Gran % (Auto) 0.1 % Neut % (Auto) 62.7 % Lymph % (Auto) 29.1 % [place] % (Auto) 6.5 % Eos % (Auto) 1.3 % Baso % (Auto) 0.3 % Neut # (Auto) 8.45 H (1.4-6.5) K/uL Lymph # (Auto) 3.92 H (1.2-3.4) K/uL [place] # (Auto) 0.88 H (0.11-0.59) K/uL Eos # (Auto) 0.18 (0-0.5) K/uL Baso # (Auto) 0.04 (0-0.2) K/uL Immature Gran # (Auto) 0.02 (0.00-0.02) K/uL Sodium 134 L (136-145) mmol/L Potassium 4.1 (3.5-5.1) mmol/L Chloride 100 (98-107) mmol/L Carbon Dioxide 27 (21-32) mmol/L Anion Gap 7.0 (3-11) BUN 22 H (7-18) mg/dl Creatinine 1.36 (0.6-1.4) mg/dl Est Cr Clr Drug Dosing 89.0 ml/min Est GFR ( Amer) 70.3 ml/min Est GFR (Non-Af Amer) 60.7 ml/min BUN/Creatinine Ratio 16.2 (10-20) Glucose 154 H (70-99) mg/dl Calcium 9.0 (8.5-10.1) mg/dl Total Bilirubin 0.4 (0.2-1) mg/dl AST 23 (15-37) U/L ALT 31 (12-78) U/L Alkaline Phosphatase 73 (45-117) U/L Troponin I 0.016 (0-0.045) ng/ml Total Protein 7.3 (6.4-8.2) gm/dl Albumin 3.6 (3.4-5.0) gm/dl Globulin 3.7 (2.5-4.0) gm/dl Albumin/Globulin Ratio 1.0 (0.9-2) Urine Color Urine Appearance (Clear) Urine pH (4.5-7.5) Ur Specific [place] (1.000-1.030) Urine Protein (Negative) Urine Glucose (UA) (Negative) Urine Ketones (Negative) Urine Blood (Negative) Urine Nitrite (Negative) Urine Bilirubin (Negative) Urine Urobilinogen (Negative) Ur Leukocyte Esterase (Negative) Urine WBC (Auto) (0-5) /hpf Urine RBC (Auto) (0-4) /hpf U Hyaline Cast (Auto) (0-5) /lpf U Epithel Cells (Auto) (0-5) /lpf Urine Bacteria (Auto) (Negative) COVID-19 Eval Order Covid19 at [facility] SARS-CoV-2 (PCR) (Negative) 12/13/20 12/13/20 Range/Units 23:18 23:35 WBC (4.8-10.8) K/uL RBC (4.7-6.1) M/uL Hgb (14.0-18.0) g/dL Hct (42-52) % MCV (80-100) fL MCH (25-34) pg MCHC (32-36) g/dL RDW Std Deviation (36.4-46.3) fL RDW Coeff of Cathryn (11.5-14.5) % Plt Count (130-400) K/uL MPV (7.4-10.4) fL Immature Gran % (Auto) % Neut % (Auto) % Lymph % (Auto) % [place] % (Auto) % Eos % (Auto) % Baso % (Auto) % Neut # (Auto) (1.4-6.5) K/uL Lymph # (Auto) (1.2-3.4) K/uL [place] # (Auto) (0.11-0.59) K/uL Eos # (Auto) (0-0.5) K/uL Baso # (Auto) (0-0.2) K/uL Immature Gran # (Auto) (0.00-0.02) K/uL Sodium (136-145) mmol/L Potassium (3.5-5.1) mmol/L Chloride (98-107) mmol/L Carbon Dioxide (21-32) mmol/L Anion Gap (3-11) BUN (7-18) mg/dl Creatinine (0.6-1.4) mg/dl Est Cr Clr Drug Dosing ml/min Est GFR ( Amer) ml/min Est GFR (Non-Af Amer) ml/min BUN/Creatinine Ratio (10-20) Glucose (70-99) mg/dl Calcium (8.5-10.1) mg/dl Total Bilirubin (0.2-1) mg/dl AST (15-37) U/L ALT (12-78) U/L Alkaline Phosphatase (45-117) U/L Troponin I (0-0.045) ng/ml Total Protein (6.4-8.2) gm/dl Albumin (3.4-5.0) gm/dl Globulin (2.5-4.0) gm/dl Albumin/Globulin Ratio (0.9-2) Urine Color Yellow Urine Appearance Clear (Clear) Urine pH 6.0 (4.5-7.5) Ur Specific [place] 1.010 (1.000-1.030) Urine Protein 2+ H (Negative) Urine Glucose (UA) Negative (Negative) Urine Ketones Negative (Negative) Urine Blood Negative (Negative) Urine Nitrite Negative (Negative) Urine Bilirubin Negative (Negative) Urine Urobilinogen Negative (Negative) Ur Leukocyte Esterase Negative (Negative) Urine WBC (Auto) 1-5 (0-5) /hpf Urine RBC (Auto) 0-4 (0-4) /hpf U Hyaline Cast (Auto) 1-5 (0-5) /lpf U Epithel Cells (Auto) 10-20 H (0-5) /lpf Urine Bacteria (Auto) Negative (Negative) COVID-19 Eval Order SARS-CoV-2 (PCR) NEGATIVE (Negative) Administered Medications Enoxaparin Sodium (Enoxaparin Inj 40 Mg/0.4 Ml Syr) 40 mg SQ Q24H [facility] Stop: 01/13/21 05:59 Last Admin: 12/14/20 08:36 Dose: 40 mg Documented by: [id number] Discontinued Medications Furosemide (Furosemide 40 Mg/4 Ml Vial) Confirm Administered Dose 40 mg IV .STK- MED ONE Stop: 12/13/20 23:10 Last Admin: 12/13/20 23:11 Dose: 40 mg Documented by: [id number] Sodium Chloride (Nss) 500 mls @ 80 mls/hr IV .[id number] [facility] Stop: 01/13/21 10:59 Last Infusion: 12/14/20 12:59 Dose: 0 mls/hr Documented by: [id number] Admin: 12/14/20 11:15 Dose: 80 mls/hr Documented by: [id number] Metoprolol Tartrate (Metoprolol Tartrate 25 Mg Tab) 25 mg PO BID MADAN Stop: 01/13/21 08:59 Last Admin: 12/14/20 10:32 Dose: 25 mg Documented by: [id number] Metoprolol Tartrate (Metoprolol Tartrate 25 Mg Tab) 12.5 mg PO ONE ONE Stop: 12/14/20 14:52 Last Admin: 12/14/20 15:30 Dose: 12.5 mg Documented by: [id number] Discharge Plan Visit Data Chief Complaint: Chest Pain Stated Complaint: Chest pain/ekg changes ED Provider: Chayito Morley Discharge Problem: Acute hypotension, Pulmonary edema, Near syncope Patient Disposition: Admitted As Inpatient Discharge Instructions Interventions: ED Discharge Assessment Last Done: 12/14/20 05:04 Discharge Problem: Pulmonary edema Qualifiers: Chronicity: acute Qualified Code(s): J81.0 - Acute pulmonary edema
--- NOTE | 2020-12-14 18:47 | Hospitalist Progress Note ---
Date of Service December 14, 2020 Assessment & Plan (1) Hypertrophic cardiomyopathy: (2) Syncope and collapse: Plan: ASSESSMENT AND PLAN: This is a 50-year-old male who presents with syncope. 1. Syncope Hypertrophic cardiomyopathy Pulmonary edema --Received IV Lasix, now off BiPAP, on room air Evaluated by Dr. Chappell, metoprolol increased to 37.5 mg twice daily --Continue to monitor closely 2. Deep venous thrombosis prophylaxis: --Lovenox Admission and Anticipated Discharge Date Admission Date: December 14, 2020 Subjective ff for syncope, pulm edema, HCM seen resting in chair, comfortable states he feels better overall denies chest pain, dyspnea, palpitations, dizziness ambulating to the bathroom with no problems no abdominal pain ,nausea/vomiting no other symptoms Review of Systems Review of Systems: all noted and negative except for above Physical Exam Physical Exam: General- oriented x 3, not in distress, speaks in sentences with no effort or accessory muscle use Eyes- anicteric Neck- no JVD Lungs- clear BS bilaterally, no rales/wheezes Heart- normal rate, regular rhythm; no murmurs Abdomen- normal bowel sounds, nondistended, soft, nontender Extremities- no pretibial edema, no calf tenderness Neuro- alert, oriented x 3; no gross focal neurologic deficits Skin- warm & dry Results & Data Results & Data ([facility]) Vital Signs (Past 12 Hours) Vital Signs Temp Pulse Pulse Resp BP Pulse Ox 12/14/20 18:13 85 12/14/20 16:06 36.7 C 81 18 118/74 96 12/14/20 12:05 36.9 C 75 18 127/72 95 12/14/20 08:37 37 C 81 18 129/79 95 all noted and reviewed including below
[2020-12-14] MEDS ORDERED: ARTIFICIAL TEARS OP PRN (20:05)
[2020-12-14] MEDS: METOPROLOL TARTRATE 25 MG TAB PO SCH (20:49)
[2020-12-15] MEDS: ENOXAPARIN INJ 40 MG/0.4 ML SYR SQ SCH (05:55)
--- NOTE | 2020-12-15 07:47 | Electrocardiogram Report ---
Test Reason : Blood Pressure : / mmHG Vent. Rate : 084 BPM Atrial Rate : 084 BPM P-R Int : 198 ms QRS Dur : 090 ms QT Int : 398 ms P-R-T Axes : 057 001 172 degrees QTc Int : 470 ms Normal sinus rhythm Left atrial enlargement St changes consistent with hypertrophy Prolonged QT Abnormal ECG When compared with ECG of 13-DEC-2020 23:04, ST less depressed in Lateral leads Nonspecific T wave abnormality has replaced inverted T waves in Anterior leads QT has shortened Confirmed by Danie Valencia ([id number]) on 12/15/2020 7:46:56 AM Referred By: REFERRED SELF Confirmed By:Magdiel Valencia
--- NOTE | 2020-12-15 07:56 | Electrocardiogram Report ---
Test Reason : Blood Pressure : / mmHG Vent. Rate : 069 BPM Atrial Rate : 069 BPM P-R Int : 184 ms QRS Dur : 108 ms QT Int : 446 ms P-R-T Axes : 042 000 160 degrees QTc Int : 477 ms Poor data quality, interpretation may be adversely affected Normal sinus rhythm Left atrial enlargement Abnormal ECG When compared with ECG of 14-DEC-2020 11:02, (unconfirmed) No significant change was found Confirmed by Danie Valencia ([id number]) on 12/15/2020 7:55:57 AM Referred By: REFERRED SELF Confirmed By:Magdiel Valencia
[2020-12-15] MEDS: METOPROLOL TARTRATE 25 MG TAB PO SCH ×2 (09:12→20:12)
--- NOTE | 2020-12-15 13:47 | Hospitalist Progress Note ---
Date of Service December 15, 2020 Assessment & Plan (1) Hypertrophic cardiomyopathy: (2) Syncope and collapse: Plan: ASSESSMENT AND PLAN: This is a 50-year-old male who presents with syncope. 1. Syncope Hypertrophic cardiomyopathy Pulmonary edema --Received IV Lasix, now off BiPAP, on room air Evaluated by Dr. Chappell, metoprolol increased to 37.5 mg twice daily --remains stable overall no arrhythmias overnight per tele --monitor 2. Deep venous thrombosis prophylaxis: --Lovenox Admission and Anticipated Discharge Date Admission Date: December 14, 2020 Subjective ff up for syncope, pulmonary edema, HCM seen resting in bed, comfortable not in distress states he feels fine overall denies dyspnea, palpitations, dizziness, chest pain ambulating to the bathroom with no problems no other symptoms Review of Systems Review of Systems: all noted and negative except for above Physical Exam Physical Exam: General- oriented x 3, not in distress, speaks in sentences with no effort or accessory muscle use Eyes- anicteric Neck- no JVD Lungs- clear breath sounds bilaterally, no rales/wheezes Heart- normal rate, regular rhythm; no murmurs Abdomen- normal bowel sounds, nondistended, soft, nontender Extremities- no pretibial edema, no calf tenderness Neuro- alert, oriented x 3; no gross focal neurologic deficits Skin- warm & dry Results & Data Results & Data ([facility]) Vital Signs (Past 12 Hours) Vital Signs Temp Pulse Pulse Resp BP Pulse Ox 12/15/20 10:27 36.7 C 75 17 111/71 97 12/15/20 07:14 71 12/15/20 03:14 37.2 C 67 19 104/68 95 all noted and reviewed including below
[2020-12-15] MEDS ORDERED: FUROSEMIDE INJ 20 MG/2 ML VIAL IV ONE (14:40)
--- NOTE | 2020-12-15 14:54 | Anesthesiology Consultation ---
Date of Service December 15, 2020 Assessment & Plan Chart Review Chart Review: Acceptable Risk for Surgery and Patient NOT seen in Pre Admission Testing Consults Requested none ASA ASA4 History Height/Weight Height: 6 ft 3 in Weight: 106.1 kg Allergies Allergy/AdvReac Type Severity Reaction Status Date / Time No Known Allergies Allergy Verified 12/13/20 23:30 Medications Home Medications Medication Instructions Recorded Confirmed Last Taken Balance Of Nature Vitamin 1 tab PO DAILY 12/01/20 12/13/20 12/13/20 metoprolol tartrate 25 mg tablet 25 mg PO BID 30 Days #60 tab 12/03/20 12/13/20 12/13/20 Active Medications Generic Name Dose Route Start Last Admin Trade Name Freq PRN Reason Stop Dose Admin Enoxaparin Sodium 40 mg 12/14/20 06:00 12/15/20 05:55 Enoxaparin Inj 40 Mg/0.4 Ml Syr SQ 01/13/21 05:59 40 mg Q24H MADAN Administration Metoprolol Tartrate 37.5 mg 12/14/20 21:00 12/15/20 09:12 Metoprolol Tartrate 25 Mg Tab PO 01/13/21 20:59 37.5 mg BID MADAN Administration Past Medical History Medical History Syncope and collapse Exercise / Class Metabolic Activity III < 4 Walking/Shop/Light housework Past Anesthesia History No Hx of Anesthesia Complications and No Family Hx of Anesthesia Complications History of PONV No Hx of PONV and No Hx of Motion Sickness Social History Smoking Status: Never smoker Hx Alcohol Use: Yes alcohol intake frequency: holidays/special occasions only Hx Substance Use: No substance use type: does not use Physical Exam Vital Signs Last Vital Signs Temp 36.7 C 12/15/20 10:27 Pulse 75 12/15/20 10:27 Resp 17 12/15/20 10:27 BP 111/71 12/15/20 10:27 Pulse Ox 97 12/15/20 10:27 Testing Laboratory Results 12/14/20 05:37 12/14/20 05:37 Urine Color Yellow 12/13/20 23:35 Urine Appearance Clear (Clear) 12/13/20 23:35 Urine pH 6.0 (4.5-7.5) 12/13/20 23:35 Ur Specific [place] 1.010 (1.000-1.030) 12/13/20 23:35 Urine Protein 2+ (Negative) H 12/13/20 23:35 Urine Glucose (UA) Negative (Negative) 12/13/20 23:35 Urine Ketones Negative (Negative) 12/13/20 23:35 Urine Nitrite Negative (Negative) 12/13/20 23:35 Ur Leukocyte Esterase Negative (Negative) 12/13/20 23:35 Urine WBC (Auto) 1-5 /hpf (0-5) 12/13/20 23:35 Urine RBC (Auto) 0-4 /hpf (0-4) 12/13/20 23:35 U Hyaline Cast (Auto) 1-5 /lpf (0-5) 12/13/20 23:35 U Epithel Cells (Auto) 10-20 /lpf (0-5) H 12/13/20 23:35 Urine Bacteria (Auto) Negative (Negative) 12/13/20 23:35 Electrocardiogram Date: 12/15/20 Findings: + NSR @ (at 70;LAE) and + NSST changes Chest X-Ray Date: 12/14/20 Findings: + pulmonary vascular congestion (mild interstitial pulmonary edema) Echocardiogram Date: 12/14/20 EF: 65% LV Function: normal RWMA: + none Other Findings: + LVH (Severe conc. LVH;small LV chamber) Valvular Disease: + no significant valvular disease Cardiac Catheterization Date: 12/02/20 Findings: + normal Intervention: + pertinent finding (small LV cavity@ apex;HOCM of apical variant;normal coronary arteries)
--- NOTE | 2020-12-15 15:06 | Cardiology Progress Note ---
Date of Service December 15, 2020 Assessment & Plan (1) Syncope and collapse: (2) Hypertrophic cardiomyopathy: (3) Pulmonary edema: (4) Mitral regurgitation: Plan: The patient's presenting symptom of abrupt loss of postural tone, and respiratory insufficiency are similar to his index event from 12/01/2020, no arrhythmias were captured on his AICD device to suggest an arrhythmia culprit. The device would have recorded anything over 150 bpm, greater than 30 seconds in duration, and the treatment threshold was for tachycardia in excess of 171 bpm. Therefore unknown arrhythmia etiology needs to be explored. A repeat transthoracic echocardiogram was performed, and the mitral valve anatomy appears normal within the resolution limits of transthoracic echocardiogram, however at least moderate, and perhaps a severe eccentric mitral regurgitation is observed, that appears worse with Valsalva maneuver. Diastolic dysfunction also noted. No left ventricular outflow tract gradient could be induced during the echocardiogram study with Valsalva maneuver. We will plan on proceeding with furosemide 20 mg x 1 today, to further optimize his volume status, in preparation for transesophageal echocardiogram tomorrow for further assessment of the anatomy of the mitral valve. An anesthesia consult has been placed. We will make patient n.p.o. after midnight. Patient agreeable with proceeding. Also on the differential for the severe left ventricular hypertrophy on his echocardiogram is an infiltrative process such as amyloid, will proceed with serum protein immunofixation tests for screening purposes. Continue metoprolol tartrate, increased to 37.5 mg twice daily yesterday, with plans to further increase this, but I would like to hold off on making any additional adjustments at present in an effort to avoid any iatrogenic low blood pressure preparation for transesophageal echo. Admission and Anticipated Discharge Date Admission Date: December 14, 2020 Subjective Patient seen in cardiology follow-up. He feels well. Telemetry reveals sinus rhythm in 70s without arrhythmia. Denies shortness of breath. Review of Systems Review of Systems: All systems reviewed & are unremarkable except as noted in HPI & below Physical Exam Physical Exam: Temp Pulse Resp BP Pulse Ox 36.7 C 75 17 111/71 97 12/15/20 10:27 12/15/20 10:27 12/15/20 10:27 12/15/20 10:27 12/15/20 10:27 Constitutional: WD/WN, vitals as above Respiratory: normal respiratory effort, lungs clear to auscultation Cardiovascular: RRR, no murmur, no edema Gastrointestinal (Abdomen): normal bowel sounds, soft, nontender, no hepatosplenomegaly Neurologic: PERRL, EOMI, accommodation nl, no face palsy, no dysarthria Results & Data ([facility]) Vital Signs (Past 12 Hours) Vital Signs Temp Pulse Pulse Resp BP Pulse Ox 12/15/20 10:27 36.7 C 75 17 111/71 97 12/15/20 07:14 71 12/15/20 03:14 37.2 C 67 19 104/68 95 Laboratory Results Cardiac Enzymes 12/15/20 Range/Units 07:22 Troponin I 0.600 H* (0-0.045) ng/ml Intake and Output 12/14/20 12/15/20 12/15/20 22:59 06:59 14:59 Intake Total 250 / 850 200 / 850 Output Total 700 / 1100 Balance 250 / -250 -500 / -250 Intake: Oral 250 / 690 200 / 690 Output: Urine 700 / 1100 Other: # Unmeasured Voids 1 2 Weight 106.1 kg 106.1 kg Weight Measurement Method Standing Scale Patient Weight 12/16/20 06:59 Weight 106.1 kg Diagnostic Findings EKG performed today 12/15/2020 at 5:44 AM reveals sinus rhythm at 69 bpm with left atrial enlargement, ongoing inferior lateral ST-T wave changes consistent with LVH, corrected QT interval 477 ms, unchanged compared to previous 12/14/2020 at 11:02 AM. (1) Pulmonary edema Chronicity: acute Qualified Code(s): J81.0 - Acute pulmonary edema
[2020-12-15 15:24] LABS: BUN Creatinine Ratio 16.2 (10-20); Calcium 9.6 mg/dl (8.5-10.1); Creatinine Clr Calc Pharmacy 105.1 ml/min; Est GFR (African American) 88.9 ml/min; Est GFR (Non-African American) 76.7 ml/min; Potassium 4.4 mmol/L (3.5-5.1)
[2020-12-16] MEDS: ENOXAPARIN INJ 40 MG/0.4 ML SYR SQ SCH (05:04)
[2020-12-16 06:50] LABS: BUN Creatinine Ratio 15.2 (10-20); Calcium 9.7 mg/dl (8.5-10.1); Creatinine Clr Calc Pharmacy 113.6 ml/min; Est GFR (African American) 98.4 ml/min; Est GFR (Non-African American) 84.9 ml/min; Potassium 4.2 mmol/L (3.5-5.1)
--- NOTE | 2020-12-16 07:35 | History & Physical Bridge Note ---
Date of Service December 16, 2020 History & Physical Bridge Note I have examined the patient, reviewed the History & Physical and in the interval since the performance of the History & Physical I have noted the following changes of clinical significance: no changes noted
[2020-12-16] MEDS ORDERED: PROPOFOL IV EMULSION 10 MG/ML 20 ML VIAL IV ONE (07:43)
--- NOTE | 2020-12-16 08:55 | Anesthesiology Progress Note ---
Date of Service December 16, 2020 Anesthesia Post Procedure Vital Signs Vital Signs: Temp Pulse Pulse Resp BP Pulse Ox 12/16/20 08:45 78 18 115/65 96 12/16/20 08:30 76 18 99/59 L 95 12/16/20 07:10 36.8 C 77 20 145/85 H 98 12/16/20 04:39 36.7 C 68 16 111/70 97 12/15/20 23:43 36.8 C 68 16 114/72 98 12/15/20 23:22 67 12/15/20 20:12 82 137/85 12/15/20 18:58 36.8 C 71 18 126/77 94 12/15/20 15:31 74 12/15/20 15:13 36.7 C 71 17 129/78 96 12/15/20 10:27 36.7 C 75 17 111/71 97 Transfer of Care Handoff Completed per policy Notes Mental Status: alert / awake / arousable and participated in evaluation Patient Amnestic to Procedure: Yes Nausea / Vomiting: adequately controlled Pain: adequately controlled Airway Patency, RR, SpO2: stable & adequate BP & HR: stable & adequate Hydration State: stable & adequate Anesthetic Complications: no major complications apparent
--- NOTE | 2020-12-16 09:04 | Post Operative Brief Note ---
Cardiology Brief Post Op Date of Surgery December 16, 2020 Pre & Post Diagnosis Preprocedure diagnosis: Assess for dynamic mitral regurgitation, left ventricular hypertrophy Postprocedure diagnosis: Mild mitral regurgitation becomes moderate with provocative administration of phenylephrine Operation Date: 12/16/20 07:30 Procedure Transesophageal echocardiogram: After informed consent was obtained and timeout was performed the patient was sedated with the assistance of the anesthesia service. Severe concentric left ventricular hypertrophy is present. There is no evidence of left ventricular outflow tract obstruction. Mild mitral regurgitation was noted at lower blood pressures with systolic blood pressures in the range of 90-120 mmHg, and increased to at least moderate right regurgitation after administration of phenylephrine with systolic blood pressure in the range of 140 to 150 mmHg. The mitral valve anatomy was normal without prolapse or defect. Injection of agitated saline contrast suggests patent atrial atrial septum with extra cardiac shunt. Patient tolerated procedure well. Artist Consultant DO Assistant Gabrielle Gilman, EDIE Estimated Blood Loss 0 Findings Consistent with Post-Op Diagnosis
[2020-12-16] MEDS: METOPROLOL TARTRATE 25 MG TAB PO SCH ×2 (09:34→09:35)
--- NOTE | 2020-12-16 11:45 | Electrocardiogram Report ---
Test Reason : Blood Pressure : / mmHG Vent. Rate : 069 BPM Atrial Rate : 069 BPM P-R Int : 200 ms QRS Dur : 094 ms QT Int : 476 ms P-R-T Axes : 056 001 129 degrees QTc Int : 510 ms Normal sinus rhythm Possible Left atrial enlargement Prolonged QT Abnormal ECG When compared with ECG of 15-DEC-2020 05:44, No significant change was found Confirmed by Danie Valencia ([id number]) on 12/16/2020 11:45:01 AM Referred By: REFERRED SELF Confirmed By:Magdiel Valencia
--- NOTE | 2020-12-16 11:48 | Cardiology Progress Note ---
Date of Service December 16, 2020 Assessment & Plan (1) Syncope and collapse: (2) Hypertrophic cardiomyopathy: (3) Pulmonary edema: (4) Mitral regurgitation: Plan: JADA performed with administration of phenylephrine , SBP augmented to 140s to 150s, with at most moderate MR. The mitral valve anatomy was normal without prolapse. JADA did reveal suggestion patent ASD, however, rapid transit of contrast observe suggestive of a cardiac or extracardiac shunt. Not certain what this means in this case. I reviewed CTA of chest performed during admission in November with radiology and reviewed the images personally. The pulmonary venous drainage is normal. No anatomical source of shunt observed. Will need additional imaging, perhaps cardiac MRI as outpatient for evaluation of LV hypertrophy and for evaluation of shunt not visualized on JADA. Pules oximetry during exercise to assess for desaturation will be helpful. RA and RV chambers size and function are normal. No evidence of pulmonary HTN. I will review findings with patient again this afternoon after he recovers fully from sedation. Planning outpatient second opinion at [facility] . Addendum: Patient underwent an exercise stress echocardiogram exercising 6 minutes on standard Mario protocol. Pulse oximetry was observed, with pulse oximetry of 98 to 99% on room air at the start. With progressive exercise, pulse oximetry was noted to decline to 93%, and then 85% in the immediate post exercise recovery interval while the patient was in the left lateral recumbent position. No left ventricular outflow tract gradient was observed with exercise. The degree of mitral regurgitation did not change significantly with exercise. Post exercise, agitated saline was administered twice, with no evidence of shunt. The patient has now had a total of 4 bubble studies, one bubble study performed during transesophageal echocardiogram revealed what appeared to be an extracardiac shunt with late bubbles was seen to come from the right pulmonary vein system. A repeat agitated saline contrast injection was performed visualizing the left pulmonary vein system, and no bubbles were noted to crossed. 2 additional agitated saline contrast injections were performed, 1 immediately post exercise with heart rate around 100 bpm, with no evidence of shunt. A second was performed with Valsalva maneuver few moments later, with no evidence of shunt. Plan: At this time will discharge patient with plans to increase his metoprolol tartrate to 50 mg twice daily for negative inotropic effect. Discharge on furosemide 20 mg daily. Plan for outpatient consultation at [facility], hypertrophic cardiomyopathy clinic, as well as [facility]. 12/16/2020, 3:13 PM Admission and Anticipated Discharge Date Admission Date: December 14, 2020 Subjective Patient seen prior to / during/ post JADA procedure. Pt without events overnight. SR in the 60s noted overnight on telemetry. Pulse oximetry normal on room air. Review of Systems Review of Systems: All systems reviewed & are unremarkable except as noted in HPI & below Physical Exam Physical Exam: Temp Pulse Resp BP Pulse Ox 36.5 C 66 17 120/71 97 12/16/20 10:38 12/16/20 10:38 12/16/20 10:38 12/16/20 10:38 12/16/20 10:38 Constitutional: WD/WN, vitals as above Respiratory: normal respiratory effort, lungs clear to auscultation Cardiovascular: Rate/Rhythm: regular rate Heart Sounds: + murmur (1/6 SM ) Gastrointestinal (Abdomen): normal bowel sounds, soft, nontender, no hepatosplenomegaly Neurologic: PERRL, EOMI, accommodation nl, no face palsy, no dysarthria Results & Data ([facility]) Vital Signs (Past 12 Hours) Vital Signs Temp Pulse Resp BP Pulse Ox 12/16/20 10:38 36.5 C 66 17 120/71 97 12/16/20 09:38 36.8 C 73 17 114/73 98 12/16/20 09:15 75 18 127/70 95 12/16/20 09:00 73 18 116/69 97 12/16/20 08:45 78 18 115/65 96 12/16/20 08:30 76 18 99/59 L 95 12/16/20 07:10 36.8 C 77 20 145/85 H 98 12/16/20 04:39 36.7 C 68 16 111/70 97 12/15/20 23:43 36.8 C 68 16 114/72 98 (1) Pulmonary edema Chronicity: acute Qualified Code(s): J81.0 - Acute pulmonary edema
--- NOTE | 2020-12-16 15:44 | Hospitalist Progress Note ---
Date of Service December 16, 2020 Assessment & Plan (1) Hypertrophic cardiomyopathy: (2) Syncope and collapse: Plan: ASSESSMENT AND PLAN: This is a 50-year-old male who presents with syncope. 1. Syncope Hypertrophic cardiomyopathy Pulmonary edema --Received IV Lasix, required BiPAP, has been on room air Evaluated by Dr. Chappell, metoprolol increased to 37.5 mg twice daily -- s/p JADA mitral valve anatomy competent per Dr. Chappell: reviewed CTA of chest performed during admission in November with radiology and reviewed the images personally. The pulmonary venous drainage is normal. No anatomical source of shunt observed. Will need additional imaging, perhaps cardiac MRI as outpatient for evaluation of LV hypertrophy and for evaluation of shunt not visualized on JADA. Pules oximetry during exercise to assess for desaturation will be helpful. RA and RV chambers size and function are normal. No evidence of pulmonary HTN. underwent an exercise stress echocardiogram exercising 6 minutes on standard Mario protocol. Pulse oximetry was observed, with pulse oximetry of 98 to 99% on room air at the start. With progressive exercise, pulse oximetry was noted to decline to 93%, and then 85% in the immediate post exercise recovery interval while the patient was in the left lateral recumbent position. No left ventricular outflow tract gradient was observed with exercise. The degree of mitral regurgitation did not change significantly with exercise. Post exercise, agitated saline was administered twice, with no evidence of shunt. The patient has now had a total of 4 bubble studies, one bubble study performed during transesophageal echocardiogram revealed what appeared to be an extracardiac shunt with late bubbles was seen to come from the right pulmonary vein system. A repeat agitated saline contrast injection was performed visualizing the left pulmonary vein system, and no bubbles were noted to crossed. 2 additional agitated saline contrast injections were performed, 1 immediately post exercise with heart rate around 100 bpm, with no evidence of shunt. A second was performed with Valsalva maneuver few moments later, with no evidence of shunt. -- 2 step exercise test no desaturation < 90%, does not require oxygen supplement -- discharge plan: metoprolol tartrate to 50 mg twice daily for negative inotropic effect. furosemide 20 mg daily. outpatient consultation at [facility], hypertrophic cardiomyopathy clinic, as well as [facility]. 2. Deep venous thrombosis prophylaxis: --Lovenox Admission and Anticipated Discharge Date Admission Date: December 14, 2020 Subjective ff up for syncope, HCM, etc seen resting in bed, sitting up, comfortable states he feels fine overall no shortness of breath, cough, fever/chills no chest pain, palpitations, dizziness ambulating to the bathroom with no problems no other symptoms states he feels better and would like to go home today Review of Systems Review of Systems: all noted and negative except for above Physical Exam Physical Exam: General- oriented x 3, not in distress, speaks in sentences with no effort or accessory muscle use Eyes- anicteric Neck- no JVD Lungs- clear breath sounds bilaterally, no crackles, no wheezing Heart- normal rate, regular rhythm; no murmurs Abdomen- normal bowel sounds, nondistended, soft, nontender Extremities- no pretibial edema, no calf tenderness Neuro- alert, oriented x 3; no gross focal neurologic deficits Skin- warm & dry Results & Data Results & Data ([facility] [place]) Vital Signs (Past 12 Hours) Vital Signs Temp Pulse Resp BP Pulse Ox 12/16/20 10:38 36.5 C 66 17 120/71 97 12/16/20 09:38 36.8 C 73 17 114/73 98 12/16/20 09:15 75 18 127/70 95 12/16/20 09:00 73 18 116/69 97 12/16/20 08:45 78 18 115/65 96 12/16/20 08:30 76 18 99/59 L 95 12/16/20 07:10 36.8 C 77 20 145/85 H 98 12/16/20 04:39 36.7 C 68 16 111/70 97 all noted and reviewed including below
--- NOTE | 2020-12-16 16:58 | Discharge Summary ---
Date of Service December 16, 2020 Admission HPI Per Admitting Provider CHIEF COMPLAINT: Syncope and shortness of breath. HISTORY OF PRESENT ILLNESS: This is a 50-year-old male who presents with syncope and was recently diagnosed with hypertrophic cardiomyopathy, status post cardiac catheterization that showed clean coronaries and he was status post AICD. Last admission, he also developed acute pulmonary edema and received a dose of Lasix. Was discharged home on 12/04/2020, now comes back because of another episode of syncope. The patient says he was climbing steps today and he felt short of breath, then he came back, and after some time again he passed out. This time, he did not pass out that much long, but when EMS arrived his systolic blood pressure was in 60s. Even after the fluid bolus, the blood pressure did not come much up, but by the time he came to the ER he was feeling better, his blood pressure had improved to 120s, but then he developed cough and shortness of breath and chest x-ray showed pulmonary edema and he was placed on BiPAP and given a dose of Lasix. After that, he is feeling much better. Currently, he is saturating 96% on 2 liters, seems comfortable. He says during the process he also was sweating. There was no chest pain or palpitations. Denies any headache. No blurred visions, no earache, no runny nose, no sore throat, no cough, no nausea, no abdominal pain.. Normal bowel and bladder movements. No orthopnea. No swelling in the legs. He states he exercised for like 10 to 15 minutes before this today, but he was not doing any strenuous activity. Admission Exam (Per Admitting) Constitutional GENERAL: The patient is of moderate build, not in acute distress. VITAL SIGNS: Temperature 36.6, pulse 76, respiratory rate 20, blood pressure 116/82, oxygen 96% on 2 liters. HEENT: Extraocular muscles intact. NECK: No JVD, no neck masses. CARDIOVASCULAR: S1 and S2 heard. Regular rate and rhythm. No murmur, no gallop. RESPIRATORY: Normal AP diameter. No accessory muscle use. No wheezing, no crackles. ABDOMEN: Soft, bowel sounds present, nontender, no distention. CENTRAL NERVOUS SYSTEM: Cranial nerves II-XII grossly intact, nonfocal. EXTREMITIES: No edema, no erythema. Discharge Data Consultations 10/30/21 00:43 ED Decision to Admit Stat 12/14/20 08:00 Consult Cardiology Routine 12/15/20 14:11 Consult Anesthesiology Routine Procedures Performed Operation Date: 12/16/20 07:30 Actual Procedures p Echo Transesophageal - DO jose roberto Gilman Echo Color Flow - DO jose roberto Gilman Echo Doppler Complete - Tho Chappell DO Hospital Course (1) Hypertrophic cardiomyopathy: (2) Syncope and collapse: ASSESSMENT AND PLAN: This is a 50-year-old male who presents with syncope. 1. Syncope Hypertrophic cardiomyopathy Pulmonary edema --Received IV Lasix, required BiPAP, has been on room air Evaluated by Dr. Chappell, metoprolol increased to 37.5 mg twice daily -- s/p JADA mitral valve anatomy competent per Dr. Chappell: reviewed CTA of chest performed during admission in November with radiology and reviewed the images personally. The pulmonary venous drainage is normal. No anatomical source of shunt observed. Will need additional imaging, perhaps cardiac MRI as outpatient for evaluation of LV hypertrophy and for evaluation of shunt not visualized on JADA. Pules oximetry during exercise to assess for desaturation will be helpful. RA and RV chambers size and function are normal. No evidence of pulmonary HTN. underwent an exercise stress echocardiogram exercising 6 minutes on standard Mario protocol. Pulse oximetry was observed, with pulse oximetry of 98 to 99% on room air at the start. With progressive exercise, pulse oximetry was noted to decline to 93%, and then 85% in the immediate post exercise recovery interval while the patient was in the left lateral recumbent position. No left ventricular outflow tract gradient was observed with exercise. The degree of mitral regurgitation did not change significantly with exercise. Post exercise, agitated saline was administered twice, with no evidence of shunt. The patient has now had a total of 4 bubble studies, one bubble study performed during transesophageal echocardiogram revealed what appeared to be an extracardiac shunt with late bubbles was seen to come from the right pulmonary vein system. A repeat agitated saline contrast injection was performed visualizing the left pulmonary vein system, and no bubbles were noted to crossed. 2 additional agitated saline contrast injections were performed, 1 immediately post exercise with heart rate around 100 bpm, with no evidence of shunt. A second was performed with Valsalva maneuver few moments later, with no evidence of shunt. -- 2 step exercise test no desaturation < 90%, does not require oxygen supplement -- discharge plan: metoprolol tartrate to 50 mg twice daily for negative inotropic effect. furosemide 20 mg daily. outpatient consultation at [facility], hypertrophic cardiomyopathy clinic, as well as [facility].
[2020-12-16] MEDS ORDERED: METOPROLOL TARTRATE 50 MG TAB PO SCH (21:00)
[2020-12-17] MEDS ORDERED: FUROSEMIDE 20 MG TAB PO SCH (09:00)
--- NOTE | 2020-12-17 19:46 | Communication Note ---
Date of Service: December 17, 2020 50-year-old previously healthy male had recently been diagnosed with a cardiomyopathy, with severe left ventricular hypertrophy on echo, preserved ejection fraction. Initially felt to be apical variant of hypertrophic cardiomyopathy.Amyloid however is on the differential. During his recent admission,I obtained a serum immunofixation with findings of IgA lambda monoclonal band present. I have ordered serum and urine free light chains, to be collected at [facility] tomorrow. I called pt and reviewed the test results and provided him with advice that additional work up is indicated.
== END 2020-12-16 17:00 | disposition home or self-care (01) | DRG 314 ==
LOC: ED 22:58 → EDINP 12-14 02:37 → 2S 12-14 05:04

== ENCOUNTER 2021-01-11 22:52 | Inpatient (IN) ==
[2021-01-11 23:53] LABS: Basophils # (auto) 0.03 K/uL (0-0.2); Basophils % (auto) 0.5 %; Eosinophils # (auto) 0.04 K/uL (0-0.5); Eosinophils % (auto) 0.7 %; Hematocrit (blood only) 40.7 % (42-52); Hemoglobin 13.5 g/dL (14.0-18.0); Immature Granulocytes # (auto) 0.01 K/uL (0.00-0.02); Immature Granulocytes % (auto) 0.2 %; Lymphocytes % (auto) 36.5 %; Mean Corpuscular Hgb Conc 33.2 g/dL (32-36); Mean Corpuscular Volume 84.4 fL (80-100); Mean Platelet Volume 10.3 fL (7.4-10.4); Monocytes # (auto) 0.67 K/uL (0.11-0.59); Monocytes % (auto) 11.7 %; Neutrophils % (auto) 50.4 %; Platelet Count 208 K/uL (130-400); Red Blood Count 4.82 M/uL (4.7-6.1); White Blood Count 5.75 K/uL (4.8-10.8)
--- NOTE | 2021-01-12 00:01 | XRay Report ---
SINGLE VIEW CHEST CLINICAL HISTORY: Syncope. FINDINGS: 2 AP, portable, upright chest radiographs are compared to study dated 12/14/2020. A 2-lead cardiac AICD is unchanged in position and partially obscures the left upper chest. The heart is enlar ged. The pulmonary vasculature is noncongested. Chronic interstitial thickening is similar to previou s. No airspace consolidation or large pleural effusion is identified. No pneumothorax is seen. The rick ny thorax is grossly intact. IMPRESSION: 1. Cardiomegaly and AICD. There is no radiographic evidence of congestive failure. 2. No airspace consolidation or large pleural effusion is identified. ACT 112: Negative or not required by law. Electronically signed by: Gold Mckenzie M.D. 01/12/2021 12:00 AM
[2021-01-12 00:07] LABS: INR 1.2 (0.9-1.1); Prothrombin Time 11.9 Seconds (9.0-12.0)
--- NOTE | 2021-01-12 00:10 | Emergency Department Note ---
Impression & Plan Syncope and collapse, COVID-19 ED Provider Note Provider: Anthony Irvin MD DATE OF SERVICE: 01/11/2021 CHIEF COMPLAINT: Syncope HISTORY OF PRESENT ILLNESS: Patient is a 50-year-old gentleman multiple recent episodes of syncope presenting via ambulance tonight after a recurrent episode this evening. Patient was admitted here several times in November for this. Had a cardiac biopsy completed approximately 3 days ago at [facility]. states the patient has seemed paler than normal last several days. Patient states he himself has been feeling well until just this evening. Evidently came down to the kitchen and then began to feel just a little off. Patient made his way to a chair and the states he went very pale and looked sweaty and went unresponsive for 45 seconds to a minute. No generalized seizure activity reported only may be slight second of a tremor. No significant fall or trauma reported. Patient did not vomit. Patient does not remember this. reports that she was holding on the chair and called 911. Evidently his blood pressure was initially low. Seem somewhat fatigued and initially slow to respond when coming around at the house. Now the patient states he feels back to normal. states he still seems may be a little bit pale compared to normal. No recent med changes. No significant shortness of breath reported. Patient dar es any chest pain or palpitations. No defibrillation activation reported. Patient denies recent fevers. Patient states he is taken his medicines as directed. No recent changes here. REVIEW OF SYSTEMS: A total of 10 review of systems was obtained and negative except as stated above in the HPI. PAST MEDICAL HISTORY: As noted above MEDICATIONS: Reviewed home medications SOCIAL HISTORY: Lives at home with PHYSICAL EXAM: GENERAL: alert and oriented in no acute distress on stretcher Head: normocephalic and atraumatic EYES: No injection, discharge or icterus. NECK: Trachea midline. With healing pinpoint recent right IJ vascular access tract noted. No evidence of erythema or hematoma here. LUNGS: Airway patent. No retractions. Breath sounds clear with good air entry bilaterally. HEART: Regular rate and rhythm. No chest wall tenderness with left upper chest wall pacemaker site in place without signs of infection ABDOMEN: Soft and non-tender, without guarding or rebound. SKIN: Acyanotic, warm, dry, without rashes EXTREMITIES: Without swelling, tenderness or deformity NEUROLOGICAL: No focal deficits moving all extremities to command. No aphasia. No facial droop or slurred speech. EK bpm normal sinus rhythm. No PVC or PAC. No acute ST segment elevation noted. Some inferior and lateral T wave inversions noted. QTc 475. Compared to previous from December 16 of this year no significant change appreciated. CONTINUOUS CARDIAC MONITORING: was ordered and showed a heart rate of 70s-80s bpm in normal sinus rhythm Patient's laboratory studies and imaging reviewed. Differential includes Vasovagal event, dehydration, infection, hypoglycemia, electrolyte abnormalities, cardiac sources, intracerebral event, pulmonary embolism, seizure, toxicologic, neurologic, as well as other pathologies. IMPRESSION/MEDICAL DECISION MAKING: Medical record reviewed. Extensive cardiac evaluation initially thought of hypertrophic cardiomyopathy now querying amyloidosis causing cardiac symptoms. AICD in place interrogation will be ordered. EKG is unchanged. No chest pain reported. No significant trauma reported. No focal neurological deficit and doubt this represents CVA or intracranial bleed. No real infectious symptoms reported. Blood pressure transiently earlier as well some fatigue earlier with the syncope but now improved. No significant hypoxia. Chest x-ray obtained. CTA 6 weeks ago negative for PE. Doubt this represents acute PE. Doubt dissection. No significant anemia or leukocytosis noted. Mild hyponatremia of 131 noted which is similar to previous. No transaminitis. Troponin detectable but not significantly elevated and improved from before. Doubt this was ACS/CT at this time. Patient's rapid Covid test come back positive. No history of this. Patient's not vaccinated at this time. May be contributing to event today. Given the syncope believe further observation with his cardiac history is warranted. Awaiting pacemaker interrogation report. Patient and updated at bedside and hospitalist contacted. AICD interrogation report did not show any acute abnormalities. DIAGNOSIS: Syncope, COVID-19 DISPOSITION: Hospitalist will evaluate Patient was agreeable with this plan. Past Med/Surg History Medical History Syncope and collapse Social History Smoking Status: Never smoker Second Hand Exposure: No; Hx Alcohol Use: Yes Hx Substance Use: No Preferred Language: Micronesian Communication Ability: Effective Screw Machine Tender Required: No Beliefs That Will Affect Care: None marital status: Current Living Situation: Spouse How many Children do You have: 2 Feels Safe at Home: Yes Assistive Devices: None Allergies Allergies Allergy/AdvReac Type Severity Reaction Status Date / Time No Known Allergies Allergy Verified 01/11/21 23:36 Home Meds Home Medications Medication Instructions Recorded Confirmed Balance Of Nature Vitamin 1 tab PO DAILY 12/01/20 01/11/21 Previous Rx's Medication Instructions Recorded furosemide 20 mg tablet 20 mg PO QAM 30 Days #30 tab 12/16/20 metoprolol tartrate 50 mg tablet 50 mg PO BID 30 Days #60 tab 12/16/20 Results & Data (ED) Vital Signs Vital Signs - 24 hr 01/11/21 23:23 01/11/21 23:58 01/12/21 00:00 Temperature 36.7 C Temperature Source Oral Pulse Rate 72 78 75 Pulse Rate from SpO2 Sensor 78 75 Respiratory Rate 16 19 16 Respiratory Effort / Characteristics Non-Labored Spontaneous Respiratory Depth Normal Blood Pressure 120/74 115/71 109/57 L Blood Pressure Mean 89 85 74 Blood Pressure Position Lying Pulse Oximetry 99 99 98 Oxygen Delivery Method Room Air Room Air Room Air Sepsis Recent Fever Within 48 Hours No Sepsis New/Unexplained Change in Mental Status N/A Sepsis Action Taken by Nursing No Action Required Laboratory Data Result diagrams: 01/11/21 23:31 01/11/21 23:31 Lab Results 01/11/21 01/11/21 01/11/21 Range/Units 23:31 23:31 23:31 WBC 5.75 (4.8-10.8) K/uL RBC 4.82 (4.7-6.1) M/uL Hgb 13.5 L (14.0-18.0) g/dL Hct 40.7 L (42-52) % MCV 84.4 (80-100) fL MCH 28.0 (25-34) pg MCHC 33.2 (32-36) g/dL RDW Std Deviation 43.0 (36.4-46.3) fL RDW Coeff of Cathryn 14.0 (11.5-14.5) % Plt Count 208 (130-400) K/uL MPV 10.3 (7.4-10.4) fL Immature Gran % (Auto) 0.2 % Neut % (Auto) 50.4 % Lymph % (Auto) 36.5 % [place] % (Auto) 11.7 % Eos % (Auto) 0.7 % Baso % (Auto) 0.5 % Neut # (Auto) 2.90 (1.4-6.5) K/uL Lymph # (Auto) 2.10 (1.2-3.4) K/uL [place] # (Auto) 0.67 H (0.11-0.59) K/uL Eos # (Auto) 0.04 (0-0.5) K/uL Baso # (Auto) 0.03 (0-0.2) K/uL Immature Gran # (Auto) 0.01 (0.00-0.02) K/uL PT 11.9 (9.0-12.0) Seconds INR 1.2 H (0.9-1.1) Sodium 131 L (136-145) mmol/L Potassium 4.0 (3.5-5.1) mmol/L Chloride 96 L (98-107) mmol/L Carbon Dioxide 23 (21-32) mmol/L Anion Gap 11.0 (3-11) BUN 19 H (7-18) mg/dl Creatinine 1.33 (0.6-1.4) mg/dl Est Cr Clr Drug Dosing 91.2 ml/min Est GFR ( Amer) 72.2 ml/min Est GFR (Non-Af Amer) 62.3 ml/min BUN/Creatinine Ratio 13.9 (10-20) Glucose 101 H (70-99) mg/dl Calcium 8.8 (8.5-10.1) mg/dl Magnesium 1.8 (1.8-2.4) mg/dl Total Bilirubin 0.5 (0.2-1) mg/dl AST 26 (15-37) U/L ALT 26 (12-78) U/L Alkaline Phosphatase 70 (45-117) U/L Troponin I 0.032 (0-0.045) ng/ml Total Protein 7.6 (6.4-8.2) gm/dl Albumin 3.7 (3.4-5.0) gm/dl Globulin 3.9 (2.5-4.0) gm/dl Albumin/Globulin Ratio 0.9 (0.9-2) TSH 4.740 H (0.300-4.500) uIu/ml Free T4 0.89 (0.8-1.6) ng/dl SARS-CoV-2, RNA, NAAT (NEGATIVE) 01/12/21 Range/Units 00:00 WBC (4.8-10.8) K/uL RBC (4.7-6.1) M/uL Hgb (14.0-18.0) g/dL Hct (42-52) % MCV (80-100) fL MCH (25-34) pg MCHC (32-36) g/dL RDW Std Deviation (36.4-46.3) fL RDW Coeff of Cathryn (11.5-14.5) % Plt Count (130-400) K/uL MPV (7.4-10.4) fL Immature Gran % (Auto) % Neut % (Auto) % Lymph % (Auto) % [place] % (Auto) % Eos % (Auto) % Baso % (Auto) % Neut # (Auto) (1.4-6.5) K/uL Lymph # (Auto) (1.2-3.4) K/uL [place] # (Auto) (0.11-0.59) K/uL Eos # (Auto) (0-0.5) K/uL Baso # (Auto) (0-0.2) K/uL Immature Gran # (Auto) (0.00-0.02) K/uL PT (9.0-12.0) Seconds INR (0.9-1.1) Sodium (136-145) mmol/L Potassium (3.5-5.1) mmol/L Chloride (98-107) mmol/L Carbon Dioxide (21-32) mmol/L Anion Gap (3-11) BUN (7-18) mg/dl Creatinine (0.6-1.4) mg/dl Est Cr Clr Drug Dosing ml/min Est GFR ( Amer) ml/min Est GFR (Non-Af Amer) ml/min BUN/Creatinine Ratio (10-20) Glucose (70-99) mg/dl Calcium (8.5-10.1) mg/dl Magnesium (1.8-2.4) mg/dl Total Bilirubin (0.2-1) mg/dl AST (15-37) U/L ALT (12-78) U/L Alkaline Phosphatase (45-117) U/L Troponin I (0-0.045) ng/ml Total Protein (6.4-8.2) gm/dl Albumin (3.4-5.0) gm/dl Globulin (2.5-4.0) gm/dl Albumin/Globulin Ratio (0.9-2) TSH (0.300-4.500) uIu/ml Free T4 (0.8-1.6) ng/dl SARS-CoV-2, RNA, NAAT POSITIVE A* (NEGATIVE) Imaging Data Radiologist's Impression: Chest X-Ray 01/11/21 23:35 SINGLE VIEW CHEST CLINICAL HISTORY: Syncope. FINDINGS: 2 AP, portable, upright chest radiographs are compared to study dated 12/14/2020. A 2-lead cardiac AICD is unchanged in position and partially obscures the left upper chest. The heart is enlarged. The pulmonary vasculature is noncongested. Chronic interstitial thickening is similar to previous. No airspace consolidation or large pleural effusion is identified. No pneumothorax is seen. The bony thorax is grossly intact. IMPRESSION: 1. Cardiomegaly and AICD. There is no radiographic evidence of congestive failure. 2. No airspace consolidation or large pleural effusion is identified. ACT 112: Negative or not required by law. Electronically signed by: Gold Mckenzie M.D. 01/12/2021 12:00 AM Discharge Plan Visit Data Chief Complaint: Syncope (Near Syncope) Stated Complaint: Hypotension, AMS ED Provider: Anthony Irvin Discharge Problem: Syncope and collapse, COVID-19 Patient Disposition: Being Evaluated by Hospitalist Forms Stand Alone Forms: My [employer] Prescriptions Prescriptions: No Action Balance Of Nature Vitamin 1 tab PO DAILY RF: 0 metoprolol tartrate 50 mg Tablet 50 mg PO BID 30 Days Qty: 60 RF: 2 furosemide 20 mg Tablet 20 mg PO QAM 30 Days Qty: 30 RF: 2 Referrals Referrals: Maxim Willams, [Primary Care Provider] -
[2021-01-12 00:18] LABS: Albumin Level 3.7 gm/dl (3.4-5.0); BUN Creatinine Ratio 13.9 (10-20); Calcium 8.8 mg/dl (8.5-10.1); Creatinine Clr Calc Pharmacy 91.2 ml/min; Est GFR (African American) 72.2 ml/min; Est GFR (Non-African American) 62.3 ml/min; Magnesium 1.8 mg/dl (1.8-2.4)
[2021-01-12 00:28] LABS: Albumin Globulin Ratio 0.9 (0.9-2); Bilirubin,Total 0.5 mg/dl (0.2-1); Globulin 3.9 gm/dl (2.5-4.0); Thyroid Stimulating Hormone 4.74 uIu/ml (0.300-4.500); Total Protein 7.6 gm/dl (6.4-8.2); Troponin I 0.032 ng/ml (0-0.045)
[2021-01-12 00:41] LABS: T4 Free Thyroxine 0.89 ng/dl (0.8-1.6)
[2021-01-12] MEDS ORDERED: ACETAMINOPHEN 325 MG TAB PO PRN (05:20)
[2021-01-12] MEDS ORDERED: NITROGLYCERIN SL 0.4 MG/TAB TAB SL PRN (05:20)
[2021-01-12] MEDS ORDERED: POLYETHYLENE (MIRALAX) 17 GM PACK PO PRN (05:20)
--- NOTE | 2021-01-12 06:51 | History and Physical Report ---
DATE OF ADMISSION: 01/12/2021. CHIEF COMPLAINT: Presyncope/syncope. HISTORY OF PRESENT ILLNESS: This is a 50-year-old male with a past medical history of recent diagnosis of hypertrophic cardiomyopathy, status post ICD and recently had a cardiac biopsy on 01/08/2021 and was told it was amyloidosis. He also is following with hem/onc, bone marrow biopsy. Presents with syncopal episode. The patient presented to the ER in November with syncopal episodes. At that time, he was found to have hypertrophic cardiomyopathy on echo. He also had cardiac catheterization, which showed normal coronaries, status post ICD. Today when he got up from sitting position, he felt dizzy and tired and while walking a few steps, he passed out for a brief moment. After that, he was feeling very weak and tired and that is the reason he came to the ER. Currently, resting comfortably and hemodynamically stable. His ICD was interrogated in the ER and it seems to be okay. Denies any chest pain, no shortness of breath, no nausea, no vomiting. He has a cough for the last 2-3 days and he has a mild diarrhea. He is not COVID vaccinated and his COVID rapid test came back positive. His sodium is 131. Denies any headache. Appetite is okay. No abdominal pain. No swelling in the legs. ALLERGIES: No known drug allergies. PAST MEDICAL HISTORY: As mentioned above. PAST SURGICAL HISTORY: Status post ICD placement, biopsy of the heart lining, colonoscopy, right heart catheterization, and also left heart catheterization. MEDICATIONS: The patient is on metoprolol 50 mg p.o. b.i.d. and furosemide 20 mg p.o. daily. FAMILY HISTORY: Significant for mother has hypertension, thyroid disease, breast cancer; maternal grandfather had prostate cancer; maternal grandmother had breast cancer; paternal grandfather had prostate and colon cancer. SOCIAL HISTORY: , no smoking. Alcohol occasional. No drug use. REVIEW OF SYSTEMS: As per HPI. Rest of the review of systems is negative. PHYSICAL EXAMINATION: GENERAL: The patient is of moderate build, not in acute distress. VITAL SIGNS: Temperature 36.7, pulse 77, respiratory rate 19, blood pressure 125/67, oxygen 99% on room air. HEENT: Pupils equal, round, and reactive to light. Oral mucosa moist. NECK: No JVD, no neck masses. CARDIOVASCULAR: S1 and S2 heard. Regular rate and rhythm. No murmur, no gallop. RESPIRATORY SYSTEM: Normal AP diameter. No accessory muscle use. No wheezing, no crackles. ABDOMEN: Soft, bowel sounds present, nontender, no distention. CENTRAL NERVOUS SYSTEM: Cranial nerves II-XII grossly intact, nonfocal. EXTREMITIES: No edema, no erythema. LABORATORY DATA: WBC 5.7, hemoglobin 13.5, hematocrit 40.7, platelets 208, PT 11.9, INR 1.2. Sodium 131, potassium 4, chloride 96, CO2 of 23, BUN 19, creatinine 1.3, serum glucose 101, calcium 8.8, magnesium 1.8, total bilirubin 0.5, AST 26, ALT 26, alkaline phosphatase 70. Troponin I of 0.03. TSH is 4.7, free T4 of 0.8. SARS-CoV-2 RNA positive. IMAGING DATA: Chest x-ray, no airspace consolidation or large pleural effusion identified. No radiographic evidence of CHF, cardiomegaly and AICD. EKG: Normal sinus rhythm at a rate of 72. Biatrial enlargement, ST-T wave abnormalities, prolonged QTc. No significant change was found. ASSESSMENT AND PLAN: This is a 50-year-old male, who presents with syncope. 1. Syncope: Recent diagnosis of hypertrophic cardiomyopathy, possible amyloidosis. Following with hem/onc and also cardiology, status post AICD, on Lasix and metoprolol which will be continued. Follow serial enzymes, monitor in the tele. ICD interrogation in ER was ok. Consulted cardiology in the a.m. for further recommendations. Will check orthostatics. 2. Hyponatremia: His sodium is always in the low 130s. Will monitor the labs. 3. COVID positive: The patient is not vaccinated. The rapid test came back positive. Will repeat the test , if it comes back positive, the patient may be qualified for monoclonal antibodies and if qualifies to be given as soon as possible. 4. Deep venous thrombosis prophylaxis: We will place him on Lovenox. DISPOSITION: Closely monitor in the tele floor. Level 1 full code. Expect to discharge home and follow with family doctor. Job ID: [id number] [facility]
--- NOTE | 2021-01-12 07:20 | Electrocardiogram Report ---
Test Reason : Blood Pressure : / mmHG Vent. Rate : 072 BPM Atrial Rate : 072 BPM P-R Int : 204 ms QRS Dur : 102 ms QT Int : 420 ms P-R-T Axes : 064 016 155 degrees QTc Int : 460 ms Normal sinus rhythm Biatrial enlargement Abnormal ECG When compared with ECG of 16-DEC-2020 04:46, No significant change was found Confirmed by Danie Valencia ([id number]) on 01/12/2021 7:20:46 AM Referred By: REFERRED SELF Confirmed By:Magdiel Valencia
[2021-01-12 07:45] LABS: Basophils # (auto) 0.04 K/uL (0-0.2); Basophils % (auto) 0.9 %; Eosinophils # (auto) 0.01 K/uL (0-0.5); Eosinophils % (auto) 0.2 %; Hematocrit (blood only) 38.9 % (42-52); Immature Granulocytes # (auto) 0.01 K/uL (0.00-0.02); Immature Granulocytes % (auto) 0.2 %; Lymphocytes % (auto) 36.6 %; Mean Corpuscular Hgb Conc 33.4 g/dL (32-36); Mean Corpuscular Volume 83.7 fL (80-100); Mean Platelet Volume 10.1 fL (7.4-10.4); Monocytes # (auto) 0.68 K/uL (0.11-0.59); Monocytes % (auto) 14.7 %; Neutrophils % (auto) 47.4 %; Platelet Count 195 K/uL (130-400); RDW Standard Deviation 42.5 fL (36.4-46.3); Red Blood Count 4.65 M/uL (4.7-6.1); White Blood Count 4.64 K/uL (4.8-10.8)
[2021-01-12 08:04] LABS: BUN Creatinine Ratio 13.8 (10-20); Calcium 9.1 mg/dl (8.5-10.1); Creatinine Clr Calc Pharmacy 106.4 ml/min; Est GFR (Non-African American) 75.1 ml/min; Potassium 4.4 mmol/L (3.5-5.1)
[2021-01-12 08:08] LABS: Troponin I 0.015 ng/ml (0-0.045)
[2021-01-12] MEDS: METOPROLOL TARTRATE 50 MG TAB PO SCH ×2 (09:08→20:48)
[2021-01-12] MEDS: FUROSEMIDE 20 MG TAB PO SCH (09:09)
[2021-01-12] MEDS: ENOXAPARIN INJ 40 MG/0.4 ML SYR SQ SCH (09:09)
--- NOTE | 2021-01-12 10:15 | Cardiology Consultation ---
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 The full report was not available as this was a remote transmission but we will interrogate the device further. With his history of amyloidosis, we have to be careful of autonomic dysfunction and although his orthostatics have been negativ e in the emergency department I think we should continue to do them around the clock. I also spoke with neurology to see if there was any association of amyloid with a seizure disorder and that is unlikely however, they did recommend possibly as an outpatient patient could have an EMG study. He has no prior history of any strokelike symptoms or a previous stroke. In regard to Covid, the patient is currently asymptomatic and will be admitted to the Covid unit and placed on appropriate protocol by the hospitalist. History of Present Illness Attending Physician: Yoon Ambrosio MD History of Present Illness This is a 50-year-old male patient who is well-known to the cardiology service. Several weeks ago he presented with syncope and was found to have a hypertrophic cardiomyopathy. He had a cardiac catheterization at that time that showed normal coronaries. An ICD was implanted and the patient was to be worked up further as an outpatient for his cardiomyopathy. He then presented approximately 7 to 10 days later with a second syncopal event and was once again admitted. This time the patient had a further work-up for his hypertrophic cardiomyopathy including an SPEP which indicated a monoclonal spike. 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 The patient also had a myocardial biopsy done at [facility] the final results are pending however, initial results indicate amyloid heart disease. Last evening the patient was in the sitting position got up and walked into the kitchen and suddenly felt a little queasy and lightheaded. He had a third syncopal event and was brought to the hospital. His second syncope was associated with jerking kind of movements. No loss of bowel or bladder. His recovery did not seem to be prolonged. He has no prior history of a seizure disorder. In the emergency department he had his ICD interrogated and no arrhythmias and no therapies were delivered. This is a limited remote report and the entire histogram is not available at this time but will be reviewed. Should be noted that the patient did have a previous extensive interrogation of his ICD after the second syncopal event which failed to show any significant arrhythmias. Currently the patient has no complaints however, in the emergency department he has tested positive for Covid. He has no current Covid symptoms such as shortness of breath or fever. Allergies Allergy/AdvReac Type Severity Reaction Status Date / Time No Known Allergies Allergy Verified 01/11/21 23:36 Home Medications Medication Instructions Recorded Confirmed Type Balance Of Nature Vitamin 1 tab PO DAILY 12/01/20 01/11/21 History furosemide 20 mg tablet 20 mg PO QAM 30 Days #30 tab 12/16/20 01/11/21 Rx metoprolol tartrate 50 mg tablet 50 mg PO BID 30 Days #60 tab 12/16/20 01/11/21 Rx Patient History Medical History Syncope and collapse Social History Smoking Status: Never smoker Second Hand Exposure: No; Hx Alcohol Use: Yes Hx Substance Use: No Preferred Language: Zambian Communication Ability: Effective Rand Butter Required: No Beliefs That Will Affect Care: None marital status: Current Living Situation: Spouse How many Children do You have: 2 Feels Safe at Home: Yes Assistive Devices: None Review of Systems Review of Systems: Review of Systems: See HPI for pertinent positives. All other 10 point review of systems are negative. Physical Exam Physical Exam: General: no acute distress and stated age Head: normocephalic, no masses, lesions, tenderness or abnormalities Eyes: conjunctiva are pink and non-injected, sclera clear Neck: supple, no adenopathy, no bruits, normal jugular venous pulse, no hepatojugular reflux Chest: normal shape and normal respiratory effort Lungs: clear to auscultation and percussion Cardiac Exam: - regular rate & rhythm, no murmurs gallops or rubs - normal S1, normal S2 Pulses: 2(+) throughout Abdomen: abdomen soft, non-tender, no abnormal masses and no hepatosplenomegaly Musculoskeletal: no gait disturbance, no joint inflammation, no deforming ar thritis Extremities: no edema and no cyanosis Neuro: grossly normal exam Results & Data ([facility]) Vital Signs (Past 12 Hours) Vital Signs Temp Pulse Resp BP Pulse Ox Pulse Ox 01/12/21 07:00 98 01/12/21 06:00 69 19 117/75 96 01/12/21 05:30 68 20 115/67 96 01/12/21 04:30 71 20 107/75 94 01/12/21 03:00 74 23 136/87 95 01/12/21 02:30 70 21 127/77 96 01/12/21 01:00 77 19 125/67 99 01/12/21 00:00 75 16 109/57 L 98 01/11/21 23:58 78 19 115/71 99 01/11/21 23:23 36.7 C 72 16 120/74 99 Laboratory Results Laboratory Results - last 24 hr 01/11/21 01/11/21 01/11/21 23:31 23:31 23:31 WBC 5.75 RBC 4.82 Hgb 13.5 L Hct 40.7 L MCV 84.4 MCH 28.0 MCHC 33.2 RDW Std Deviation 43.0 RDW Coeff of Cathryn 14.0 Plt Count 208 MPV 10.3 Immature Gran % (Auto) 0.2 Neut % (Auto) 50.4 Lymph % (Auto) 36.5 [place] % (Auto) 11.7 Eos % (Auto) 0.7 Baso % (Auto) 0.5 Neut # (Auto) 2.90 Lymph # (Auto) 2.10 [place] # (Auto) 0.67 H Eos # (Auto) 0.04 Baso # (Auto) 0.03 Immature Gran # (Auto) 0.01 PT 11.9 INR 1.2 H Sodium 131 L Potassium 4.0 Chloride 96 L Carbon Dioxide 23 Anion Gap 11.0 BUN 19 H Creatinine 1.33 Est Cr Clr Drug Dosing 91.2 Est GFR ( Amer) 72.2 Est GFR (Non-Af Amer) 62.3 BUN/Creatinine Ratio 13.9 Glucose 101 H Calcium 8.8 Magnesium 1.8 Total Bilirubin 0.5 AST 26 ALT 26 Alkaline Phosphatase 70 Troponin I 0.032 Total Protein 7.6 Albumin 3.7 Globulin 3.9 Albumin/Globulin Ratio 0.9 TSH 4.740 H Free T4 0.89 SARS-CoV-2 (PCR) SARS-CoV-2, RNA, NAAT 01/12/21 01/12/2101/12/21 00:00 03:32 07:23 WBC 4.64 L RBC 4.65 L Hgb 13.0 L Hct 38.9 L MCV 83.7 MCH 28.0 MCHC 33.4 RDW Std Deviation 42.5 RDW Coeff of Cathryn 14.0 Plt Count 195 MPV 10.1 Immature Gran % (Auto) 0.2 Neut % (Auto) 47.4 Lymph % (Auto) 36.6 [place] % (Auto) 14.7 Eos % (Auto) 0.2 Baso % (Auto) 0.9 Neut # (Auto) 2.20 Lymph # (Auto) 1.70 [place] # (Auto) 0.68 H Eos # (Auto) 0.01 Baso # (Auto) 0.04 Immature Gran # (Auto) 0.01 PT INR Sodium Potassium Chloride Carbon Dioxide Anion Gap BUN Creatinine Est Cr Clr Drug Dosing Est GFR ( Amer) Est GFR (Non-Af Amer) BUN/Creatinine Ratio Glucose Calcium Magnesium Total Bilirubin AST ALT Alkaline Phosphatase Troponin I Total Protein Albumin Globulin Albumin/Globulin Ratio TSH Free T4 SARS-CoV-2 (PCR) POSITIVE A* SARS-CoV-2, RNA, NAAT POSITIVE A* 01/12/21 07:23 WBC RBC Hgb Hct MCV MCH MCHC RDW Std Deviation RDW Coeff of Cathryn Plt Count MPV Immature Gran % (Auto) Neut % (Auto) Lymph % (Auto) [place] % (Auto) Eos % (Auto) Baso % (Auto) Neut # (Auto) Lymph # (Auto) [place] # (Auto) Eos # (Auto) Baso # (Auto) Immature Gran # (Auto) PT INR Sodium 132 L Potassium 4.4 Chloride 99 Carbon Dioxide 24 Anion Gap 9.0 BUN 16 Creatinine 1.14 Est Cr Clr Drug Dosing 106.4 Est GFR ( Amer) 87.0 Est GFR (Non-Af Amer) 75.1 BUN/Creatinine Ratio 13.8 Glucose 99 Calcium 9.1 Magnesium 2.0 Total Bilirubin AST ALT Alkaline Phosphatase Troponin I 0.015 Total Protein Albumin Globulin Albumin/Globulin Ratio TSH Free T4 SARS-CoV-2 (PCR) SARS-CoV-2, RNA, NAAT Medications Administered Current Inpatient Medications Acetaminophen (Acetaminophen 325 Mg Tab) 650 mg PO Q4H PRN PRN Reason: Pain or Fever Stop: 02/11/21 05:19 Enoxaparin Sodium (Enoxaparin Inj 40 Mg/0.4 Ml Syr) 40 mg SQ Q24H MADAN Stop: 02/11/21 08:59 Last Admin: 01/12/21 09:09 Dose: 40 mg Documented by: Furosemide (Furosemide 20 Mg Tab) 20 mg PO QAM MADAN Stop: 02/11/21 08:59 Last Admin: 01/12/21 09:09 Dose: 20 mg Documented by: Metoprolol Tartrate (Metoprolol Tartrate 50 Mg Tab) 50 mg PO BID [facility] Stop: 02/11/21 08:59 Last Admin: 01/12/21 09:08 Dose: 50 mg Documented by: Nitroglycerin (Nitroglycerin Sl 0.4 Mg/Tab Tab) 0.4 mg SL UD PRN PRN Reason: Chest Pain Stop: 02/11/21 05:19 Polyethylene Glycol (Polyethylene (Miralax) 17 Gm Pack) 17 gm PO DAILY PRN PRN Reason: Constipation Stop: 02/11/21 05:19
--- NOTE | 2021-01-12 16:38 | Communication Note ---
Date of Service: January 12, 2021 The patient was seen in the emergency room and results of investigations updated. Noted to have COVID-19 virus infection without any significant imaging abnormalities and/or symptoms/desaturation with inflammatory marker or at the lower end Will not start any medication for COVID-19 virus infection We will have a full progress report tomorrow Dr Natalie Ambrosio
[2021-01-12 17:37] LABS: Appearance Urine Clear (Clear); Bilirubin Urine Negative (Negative); Blood Urine Negative (Negative); Color Urine Yellow; Glucose Urine UA Negative (Negative); Ketones Urine Negative (Negative); Leukocyte Esterase Urine Negative (Negative); Nitrite Urine Negative (Negative); Protein Urine Negative (Negative); Specific Gravity Urine 1.012 (1.000-1.030); Urobilinogen Urine Negative (Negative)
[2021-01-13] MEDS ORDERED: MIDODRINE HCL 2.5 MG TAB PO STA (09:42)
--- NOTE | 2021-01-13 09:49 | Cardiology Progress Note ---
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 Abnormal bone marrow biopsy followed by endomyocardial biopsy (performed 01/08/21) positive for amyloid. Cardiac biopsy sent to [facility] for for typing, and anticipate results in 2 weeks. Pt scheduled for tentative follow 01/14/2021 up with hematology oncology to discuss initiation of chemotherapy. -Hematology/oncology follow-up already changed to a telemedicine visit given Covid status. With regards to the patient's syncopal episode. This event was much less dramatic than his previous episodes where his spouse had found him with jesse loss of consciousness and hypoxia. At this time just generalized fatigue, sat down to kitchen table, lost postural tone. No jesse pulmonary edema on present ing chest x-ray this admission. Patient has right heart catheterization results from last week, cardiac output/cardiac index was preserved, however patient is known to have high filling pressures despite treatment with furosemide. He had described baseline dizziness with getting up and walking at the time of his recent outpatient follow-up visit with me, and at this time recommend admitting midodrine started 2.5 mg 3 times daily for blood pressure support with thoughts that he likely does have autonomic insufficiency. I believe ongoing treatment with furosemide metoprolol necessary. Patient is to have his first dose of midodrine now and next at 12 noon. If feeling well after lunch can consider discharge to home. (2) COVID-19: Plan: Patient is not not vaccinated against COVID-19. He had traveled to see extended family for the . He reports that one of his children is also likely positive. He is doing well at home. Fortunately, patient's pulse oximetry is normal on room air, denies any subjective fever, denies cough or other respiratory symptoms. If feeling well this afternoon , can continue discharge. Complete appropriate interval of self isolation at home. As noted Heme/ Onc follow up already changed to a telemed visit. This will however, slightly delay the start of his chemotherapy. Admission and Anticipated Discharge Date Admission Date: January 12, 2021 Subjective Mr Reeder is seen in cardiology follow of syncope and nonischemic cardiomyopathy felt to be due to AL cardiac amyloidosis. Pt has also tested positive for SARS-CoV-2. He denies lightheadedness this am. Denies subjective fever. No cough or respiratory symptms. Telemetry reveals SR in the 80s. Review of Systems Review of Systems: All systems reviewed & are unremarkable except as noted in HPI & below Physical Exam Physical Exam: Temp Pulse Resp BP Pulse Ox 36.7 C 73 20 118/75 96 01/13/21 07:55 01/13/21 07:55 01/13/21 07:55 01/13/21 07:55 01/13/21 07:55 Respiratory: normal respiratory effort, lungs clear to auscultation Cardiovascular: RRR, no murmur, no edema Neurologic: PERRL, EOMI, accommodation nl, no face palsy, no dysarthria Results & Data ([facility]) Vital Signs (Past 12 Hours) Vital Signs Temp Pulse Pulse Resp BP Pulse Ox 01/13/21 07:55 36.7 C 73 20 118/75 96 01/13/21 04:45 37.3 C 96 01/13/21 00:35 73 Diagnostic Findings EKG performed 01/11/21 reveals SR at 72 bpm, first degree AVB, CA interval 204 ms, diffuse ST , T wave abnormality consistent with his history of severe LVH, unchanged compared to prior, CAD previously excluded.
[2021-01-13] MEDS: FUROSEMIDE 20 MG TAB PO SCH (10:12)
[2021-01-13] MEDS: METOPROLOL TARTRATE 50 MG TAB PO SCH (10:13)
[2021-01-13] MEDS: ENOXAPARIN INJ 40 MG/0.4 ML SYR SQ SCH (10:13)
[2021-01-13 11:26] LABS: Basophils # (auto) 0.01 K/uL (0-0.2); Basophils % (auto) 0.3 %; Eosinophils # (auto) 0.01 K/uL (0-0.5); Eosinophils % (auto) 0.3 %; Hematocrit (blood only) 38.4 % (42-52); Hemoglobin 12.8 g/dL (14.0-18.0); Lymphocytes # (auto) 1.46 K/uL (1.2-3.4); Mean Corpuscular Hemoglobin 27.6 pg (25-34); Mean Corpuscular Hgb Conc 33.3 g/dL (32-36); Mean Corpuscular Volume 82.9 fL (80-100); Mean Platelet Volume 9.7 fL (7.4-10.4); Monocytes # (auto) 0.34 K/uL (0.11-0.59); Monocytes % (auto) 9.3 %; Neutrophils # (auto) 1.83 K/uL (1.4-6.5); Neutrophils % (auto) 50.1 %; Platelet Count 195 K/uL (130-400); RDW Coefficient of Variation 13.9 % (11.5-14.5); RDW Standard Deviation 42.4 fL (36.4-46.3); Red Blood Count 4.63 M/uL (4.7-6.1); White Blood Count 3.65 K/uL (4.8-10.8)
[2021-01-13 11:43] LABS: Calcium 8.7 mg/dl (8.5-10.1); Creatinine Clr Calc Pharmacy 105.4 ml/min; Est GFR (African American) 86.1 ml/min; Est GFR (Non-African American) 74.3 ml/min; Potassium 4.8 mmol/L (3.5-5.1)
[2021-01-13] MEDS ORDERED: MIDODRINE HCL 2.5 MG TAB PO SCH (12:00)
--- NOTE | 2021-01-13 12:57 | Hospitalist Progress Note ---
Date of Service January 13, 2021 Assessment & Plan (1) Cardiac amyloidosis: Plan: Recently diagnosed cardiac amyloidosis following cardiac biopsy in [place] and the biopsy has been sent to [facility] for typing-results in 2 weeks Has been having recurrent syncopal episode and under care of crane oiler Denies any more syncope since admission Remains hemodynamically stable (2) Syncope and collapse: Plan: Has been having recurrent syncopal episode Likely secondary to orthostatic hypotension Mild protein was added to his treatment regimen No orthostasis noted in the hospital Plan to discharge home this afternoon (3) Hypertrophic cardiomyopathy: Plan: Has hypertrophic obstructive cardiomyopathy Close cardiac management (4) Plasma cell disorder: Plan: Recently diagnosed plasma cell disorder following bone biopsy Has been under close care with can filling machine operator/oncologist (5) COVID-19: Plan: He is not vaccinated against COVID-19 virus Likely exposure through traveling and meeting with extended family members over On office sounds has been infected and doing well at home He does not have any desaturation and inflammatory markers and imaging studies are unremarkable He can be a candidate for outpatient monoclonal antibody therapy Will discuss with the primary care provider if he can be given that for his COVID-19 virus infection DVT prophylaxis Subcu Lovenox CODE STATUS Full Admission and Anticipated Discharge Date Admission Date: January 12, 2021 Subjective 01/13/2021 The patient was seen and examined in telemetry unit He denies any respiratory symptoms except minimal cough Denies any more dizziness and does not have any orthostatic changes He has been waiting for formal PT evaluation before being discharged this afternoon Review of Systems Review of Systems: All systems reviewed and are unremarkable except as noted below Physical Exam Physical Exam: Lying in bed comfortably Constitutional: well developed, well nourished, + ill appearing and + obese Eyes: PERRL, conjunctivae normal, anicteric sclerae ENMT: external ear and nose normal, oropharynx normal Neck: trachea midline, no thyromegaly Respiratory: + cough (Minimal cough); no respiratory distress Auscultation: lungs clear to auscultation bilaterally; no crackles and no wheezes Cardiovascular: Rate/Rhythm: regular rate and regular rhythm; not tachycardic Heart Sounds: normal S1, normal S2 and + murmur (2/6 ESM over precordium) Extremities: no edema Gastrointestinal (Abdomen): Inspection/Auscultation: normal bowel sounds; abdomen not distended Percussion/Palpation: abdomen soft; abdomen nontender Musculoskeletal: No acute arthritis in any joint Neurologic: Alert, awake and oriented x3. No focal sensory and motor deficit appreciated Psychiatric: A+Ox3, euthymic affect Lymphatic: no cervical or axillary lymphadenopathy Results & Data Results & Data ([facility]) Vital Signs (Past 12 Hours) Vital Signs Temp Pulse Pulse Resp BP Pulse Ox Pulse Ox 01/13/21 10:57 37.2 C 01/13/21 08:15 84 01/13/21 07:55 36.7 C 73 20 118/75 96 01/13/21 07:00 96 01/13/21 04:45 37.3 C 96 Laboratory Results Short CBC 01/13/21 Range/Units 11:12 WBC 3.65 L (4.8-10.8) K/uL Hgb 12.8 L (14.0-18.0) g/dL Hct 38.4 L (42-52) % Plt Count 195 (130-400) K/uL BMP 01/13/21 11:12 Sodium 131 L Potassium 4.8 Chloride 98 Carbon Dioxide 25 BUN 16 Creatinine 1.15 Glucose 88 Calcium 8.7 Urine 01/12/21 Range/Units 17:28 Urine Color Yellow Urine Appearance Clear (Clear) Urine pH 5.0 (4.5-7.5) Ur Specific [place] 1.012 (1.000-1.030) Urine Protein Negative (Negative) Urine Glucose (UA) Negative (Negative) Medications Administered Current Inpatient Medications Acetaminophen (Acetaminophen 325 Mg Tab) 650 mg PO Q4H PRN PRN Reason: Pain or Fever Stop: 02/11/21 05:19 Enoxaparin Sodium (Enoxaparin Inj 40 Mg/0.4 Ml Syr) 40 mg SQ Q24H MADAN Stop: 02/11/21 08:59 Last Admin: 01/13/21 10:13 Dose: 40 mg Documented by: Furosemide (Furosemide 20 Mg Tab) 20 mg PO QAM MADAN Stop: 02/11/21 08:59 Last Admin: 01/13/21 10:12 Dose: 20 mg Documented by: Metoprolol Tartrate (Metoprolol Tartrate 50 Mg Tab) 50 mg PO BID MADAN Stop: 02/11/21 08:59 Last Admin: 01/13/21 10:13 Dose: 50 mg Documented by: Midodrine (Midodrine Hcl 2.5 Mg Tab) 2.5 mg PO TID@0800,1200,1700 MADAN Stop: 02/12/21 11:59 Nitroglycerin (Nitroglycerin Sl 0.4 Mg/Tab Tab) 0.4 mg SL UD PRN PRN Reason: Chest Pain Stop: 02/11/21 05:19 Polyethylene Glycol (Polyethylene (Miralax) 17 Gm Pack) 17 gm PO DAILY PRN PRN Reason: Constipation Stop: 02/11/21 05:19
--- NOTE | 2021-01-13 14:28 | Electrocardiogram Report ---
Test Reason : Blood Pressure : / mmHG Vent. Rate : 073 BPM Atrial Rate : 073 BPM P-R Int : 198 ms QRS Dur : 092 ms QT Int : 454 ms P-R-T Axes : 059 009 131 degrees QTc Int : 500 ms Normal sinus rhythm Possible Left atrial enlargement Prolonged QT Abnormal ECG When compared with ECG of 11-JAN-2021 23:23, No significant change was found Confirmed by Danie Valencia ([id number]) on 01/13/2021 2:28:18 PM Referred By: REFERRED SELF Confirmed By:Magdiel Valencia
--- NOTE | 2021-01-14 12:53 | Discharge Summary ---
Date of Service January 14, 2021 Admission HPI Per Admitting Provider DICTATED BY:Armando Ramirez MD DATE OF ADMISSION: 01/12/2021. CHIEF COMPLAINT: Presyncope/syncope. HISTORY OF PRESENT ILLNESS: This is a 50-year-old male with a past medical history of recent diagnosis of hypertrophic cardiomyopathy, status post ICD and recently had a cardiac biopsy on 01/08/2021 and was told it was amyloidosis. He also is following with hem/onc, bone marrow biopsy. Presents with syncopal episode. The patient presented to the ER in November with syncopal episodes. At that time, he was found to have hypertrophic cardiomyopathy on echo. He also had cardiac catheterization, which showed normal coronaries, status post ICD. Today when he got up from sitting position, he felt dizzy and tired and while walking a few steps, he passed out for a brief moment. After that, he was feeling very weak and tired and that is the reason he came to the ER. Currently, resting comfortably and hemodynamically stable. His ICD was interrogated in the ER and it seems to be okay. Denies any chest pain, no shortness of breath, no nausea, no vomiting. He has a cough for the last 2-3 days and he has a mild diarrhea. He is not COVID vaccinated and his COVID rapid test came back positive. His sodium is 131. Denies any headache. Appetite is okay. No abdominal pain. No swelling in the legs. Admission Exam Per Admitting Provider GENERAL: The patient is of moderate build, not in acute distress. VITAL SIGNS: Temperature 36.7, pulse 77, respiratory rate 19, blood pressure 125/67, oxygen 99% on room air. HEENT: Pupils equal, round, and reactive to light. Oral mucosa moist. NECK: No JVD, no neck masses. CARDIOVASCULAR: S1 and S2 heard. Regular rate and rhythm. No murmur, no gallop. RESPIRATORY SYSTEM: Normal AP diameter. No accessory muscle use. No wheezing, no crackles. ABDOMEN: Soft, bowel sounds present, nontender, no distention. CENTRAL NERVOUS SYSTEM: Cranial nerves II-XII grossly intact, nonfocal. EXTREMITIES: No edema, no erythema. Principal Diagnosis Cardiac amyloidosis, syncopal episode, COVID-19 virus infection Discharge Exam Lying in bed comfortably Constitutional well developed, well nourished, + ill appearing and + obese Eyes PERRL, conjunctivae normal, anicteric sclerae ENMT external ear and nose normal, oropharynx normal Neck trachea midline, no thyromegaly Respiratory + cough (Minimal cough); no respiratory distress Auscultation: lungs clear to auscultation bilaterally; no crackles and no wheezes Cardiovascular Rate/Rhythm: regular rate and regular rhythm; not tachycardic Heart Sounds: normal S1, normal S2 and + murmur (2/6 ESM over precordium) Extremities: no edema Gastrointestinal (Abdomen) Inspection/Auscultation: normal bowel sounds; abdomen not distended Percussion/Palpation: abdomen soft; abdomen nontender Psychiatric A+Ox3, euthymic affect Lymphatic no cervical or axillary lymphadenopathy Discharge Data Allergies Allergy/AdvReac Type Severity Reaction Status Date / Time No Known Allergies Allergy Verified 01/11/21 23:36 Consultations 01/12/21 00:37 ED Decision to Admit Stat 01/12/21 08:00 Consult Cardiology Routine Hospital Course (1) Cardiac amyloidosis: Recently diagnosed cardiac amyloidosis following cardiac biopsy in [facility] and the biopsy has been sent to [facility] for typing-results in 2 weeks Has been having recurrent syncopal episode and under care of typesetting supervisor Denies any more syncope since admission Remains hemodynamically stable (2) Syncope and collapse: Has been having recurrent syncopal episode Likely secondary to orthostatic hypotension Mild protein was added to his treatment regimen No orthostasis noted in the hospital Plan to discharge home this afternoon (3) Hypertrophic cardiomyopathy: Has hypertrophic obstructive cardiomyopathy Close cardiac management (4) Plasma cell disorder: Recently diagnosed plasma cell disorder following bone biopsy Has been under close care with tobacco weigher/oncologist (5) COVID-19: He is not vaccinated against COVID-19 virus Likely exposure through traveling and meeting with extended family members over On office sounds has been infected and doing well at home He does not have any desaturation and inflammatory markers and imaging studies are unremarkable He can be a candidate for outpatient monoclonal antibody therapy Will discuss with the primary care provider if he can be given that for his COVID-19 virus infection DVT prophylaxis Subcu Lovenox CODE STATUS Full Total Time Total Time Spent Total Time Spent (In Minutes): 45 minutes Discharge Plan Discharge Items Patient Disposition: Home - Self-Care Reason For Visit: SYNCOPE Discharge Diagnosis: Cardiac amyloidosis, syncopal episode, COVID-19 virus infection Condition on Discharge: Fair Activity: As commented below Activity Comment: Take it easy for the next few days to weeks Non-emergency contact: Primary Care Provider Call non-emergency contact if: you have any medication questions and your symptoms worsen Follow-up/Referrals: Maxim Willams DO [Primary Care Provider] - (Date & Time 01/17/2021 11:00 AM Provider Maxim Willams DO [facility] PLEASE NOTE THAT THIS IS A TELEHEALTH APPOINTMENT. PLEASE FOLLOW THE INSTRUCTIONS PROVIDED IN YOUR EMAIL. IF YOU HAVE ANY QUESTIONS REGARDING THIS APPOINTMENT, PLEASE CALL ) Diet: Heart Healthy Addtl Attending Provider Instructions: Please take precautions to avoid fall Please keep appointments with your healthcare providers Follow the instructions of self-isolation for next 9 days as per CDC guideline below. Derrick will call you tomorrow for possible Monoclonal antibody infusion at their [place] location Home Isolation COVID-19 Instructions The following information about Home Isolation is from the CDC Website: https://www.cdc.gov/coronavirus/2019-ncov/hcp/hhfpvmfl-telcybr-sgriwy.html Stay home except to get medical care People who are mildly ill with COVID-19 are able to isolate at home during their illness. You should restrict activities outside your home, except for getting medical care. Do not go to work, school, or public areas. Avoid using public transportation, ride-sharing, or taxis. Separate yourself from other people and animals in your home People: As much as possible, you should stay in a specific room and away from other people in your home. Also, you should use a separate bathroom, if available. Animals: You should restrict contact with pets and other animals while you are sick with COVID-19, just like you would around other people. Although there have not been reports of pets or other animals becoming sick with COVID-19, it is still recommended that people sick with COVID-19 limit contact with animals until more information is known about the virus. When possible, have another member of your household care for your animals while you are sick. If you are sick with COVID-19, avoid contact with your pet, including petting, snuggling, being kissed or licked, and sharing food. If you must care for your pet or be around animals while you are sick, wash your hands before and after you interact with pets and wear a face mask. Call ahead before visiting your doctor If you have a medical appointment, call the healthcare provider and tell them that you have or may have COVID-19. This will help the healthcare providers office take steps to keep other people from getting infected or exposed. Wear a face mask You should wear a face mask when you are around other people (e.g., sharing a room or vehicle) or pets and before you enter a healthcare providers office. If you are not able to wear a face mask (for example, because it causes trouble breathing), then people who live with you should not stay in the same room with you, or they should wear a face mask if they enter your room. Cover your coughs and sneezes Cover your mouth and nose with a tissue when you cough or sneeze. Throw used tissues in a lined trash can. Immediately wash your hands with soap and water for at least 20 seconds or, if soap and water are not available, clean your hands with an alcohol-based hand sand slinger that contains at least 60% alcohol. Clean your hands often Wash your hands often with soap and water for at least 20 seconds, especially after blowing your nose, coughing, or sneezing; going to the bathroom; and before eating or preparing food. If soap and water are not readily available, use an alcohol-based hand sand slinger with at least 60% alcohol, covering all surfaces of your hands and rubbing them together until they feel dry. Soap and water are the best option if hands are visibly dirty. Avoid touching your eyes, nose, and mouth with unwashed hands. Avoid sharing personal household items You should not share dishes, drinking glasses, cups, eating utensils, towels, or bedding with other people or pets in your home. After using these items, they s hould be washed thoroughly with soap and water. Clean all high-touch surfaces everyday High touch surfaces include counters, tabletops, doorknobs, bathroom fixtures, toilets, phones, keyboards, tablets, and bedside tables. Also, clean any surfaces that may have blood, stool, or body fluids on them. Use a household cleaning spray or wipe, according to the label instructions. Labels contain instructions for safe and effective use of the cleaning product including precautions you should take when applying the product, such as wearing gloves and making sure you have good ventilation during use of the product. Monitor your symptoms Seek prompt medical attention if your illness is worsening (e.g., difficulty breathing).Beforeseeking care, call your healthcare provider and tell them that you have, or are being evaluated for, COVID-19. Put on a face mask before you enter the facility. These steps will help the healthcare providers office to keep other people in the office or waiting room from getting infected or exposed. Ask your healthcare provider to call the local or state health department. Persons who are placed under active monitoring or facilitated self- monitoring should follow instructions provided by their local health department or occupational health professionals, as appropriate. When working with your local health department check their available hours. If you have a medical emergency and need to call 911, notify the dispatch personnel that you have, or are being evaluated for COVID-19. If possible, put on a face mask before emergency medical services arrive. Discontinuing home isolation Patients with confirmed COVID-19 should remain under home isolation precautions until the risk of secondary transmission to others is thought to be low. The decision to discontinue home isolation precautions should be made on a [id number] basis, in consultation with healthcare providers and state and local health departments. Pending Studies at Discharge: No Stand-Alone Forms: [facility], Smoking Cessation Medications and DC Order Prescriptions: New midodrine 2.5 mg Tablet 2.5 mg PO TID@0800,1200,1700 3 Days Qty: 90 RF: 0 Continued Balance Of Nature Vitamin 1 tab PO DAILY RF: 0 metoprolol tartrate 50 mg Tablet 50 mg PO BID 30 Days Qty: 60 RF: 2 furosemide 20 mg Tablet 20 mg PO QAM 30 Days Qty: 30 RF: 2 Discharge Orders: Discharge Order (Routine); Ordered 01/13/21 Ordered By: Yoon Ambrosio Admission Data Admit Date/Time: 01/12/21 03:05 Attending Provider: Yoon Ambrosio Admit Provider: Armando Ramirez Primary Care Provider: Maxim Willams Other Providers: Armando Ramirez ; Reilly Adhikari Other Interventions: Discharge Summary Assessment (RN) Last Done: 01/13/21 17:35
== END 2021-01-13 18:37 | disposition home or self-care (01) | DRG 545 ==
LOC: ED 22:52 → EDINP 01-12 03:05 → 2S 01-13 00:39